=== PATIENT | female | born 1950 | race Caucasian/White ===

== ENCOUNTER 2021-03-08 20:29 | Inpatient (IN) | payer MEDICARE, MEDICAID, SELFPAY ==
[2021-03-08 20:33] VITALS: BP 162/110; PULSE 105; RESP 18; TEMP 37.8; O2SAT 94; BMI 31.3
--- NOTE | 2021-03-08 20:54 | CT_ITS ---
STUDY: CT BRAIN WITHOUT CONTRAST REASON FOR EXAM: Female, 70 years old. Confusion RADIATION DOSAGE (If Supplied By Facility): CTDIvol = ( 37.35 ) mGy, DLP = ( 1275.30 ) mGycm TECHNIQUE: Transaxial CT imaging of the brain was performed without administration of intravenous contrast material. Individualized dose optimization techniques were used for this CT. COMPARISON: No relevant priors. FINDINGS: Normal soft tissue structures. Normal calvarium. Normal size ventricles and extra-axial spaces for the patient''s age. Normal white matter tracts of the cerebral hemispheres. Prominent perivascular spaces at the basal ganglia. Normal thalami. Normal brainstem. Normal cerebellum. There is no intracranial hemorrhage. There are no findings of an acute ischemic infarction. Mucosal thickening in the left maxillary sinus. CT/Brain/Head without Contrast IMPRESSION: No acute intracranial pathology of the brain. Electronically Signed: Zen Sifuentes DO at 22:14 EST ,
--- NOTE | 2021-03-08 20:54 | EKG12_ITS ---
Test Reason : ALT LOC Blood Pressure : / mmHG Vent. Rate : 124 BPM Atrial Rate : 100 BPM P-R Int : 000 ms QRS Dur : 062 ms QT Int : 330 ms P-R-T Axes : 064 011 104 degrees QTc Int : 474 ms Atrial fibrillation Nonspecific ST and T wave abnormality Abnormal ECG Confirmed by RUSSELL BO, ARAVIND ([id number]), order editor ALLEY JAIN ([id number]) on 03/09/2021 8:41:57 AM Referred By: EDILSON Confirmed By:ARAVIND WELLS MD
--- NOTE | 2021-03-08 20:57 | EX.ED.DYSGE1 ---
HPI History of Present Illness Chief Complaint: Alt LOC Informant: family Narrative Narrative: History is extremely limited. I do not have any records yet from assisted in terms of medical history and medications. Patient is nonverbal. We were able to talk to her sister on the phone. We found out that the patient used to live at home. However she had aides [id number] and family helping her. She went into the hospital in early January. I do not know exactly what happened then. She was then transferred to a nursing facility up in [place]. She has been there ever since. She evidently has not been feeling well for about a week. I do not have any more specifics on that either. She started to get more lethargic and confused at the end of last week. On Monday she evidently went to [facility]. She was found to have a UTI and antibiotics were started although we do not know what these were. She was also found to be Covid positive. Because she is Covid positive she was now transferred down to a long-term nursing facility in this area. We are trying to get further details. Her sister states that she has been complaining of not feeling well this week. However she was talking with her a little bit on or Monday although she was confused. Monday she would talk but not much and would only say a few words. She did recognize her sister. But she was certainly confused. Today she is not really talking. Further details above or beyond this are unable to be obtained at this time. [facility] Medical History (Updated 03/08/21 @ 23:[address] Fermín Winslwo MD) Anemia Idiopathic neuropathy Insomnia Kidney disease Venous (peripheral) insufficiency Home Medications apixaban [Eliquis] 2.5 mg PO BID 03/08/21 [History Last Taken 03/08/21] ascorbic acid (vitamin C) 500 mg PO DAILY 03/08/21 [History Last Taken 03/08/21] cephalexin [Keflex] 500 mg PO BID 03/08/21 [History Last Taken 03/08/21] cholecalciferol (vitamin D3) 125 mcg PO DAILY 03/08/21 [History Last Taken 03/08/21] gabapentin 300 mg PO BID 03/08/21 [History Last Taken 03/08/21] linaclotide [Linzess] 290 mcg PO DAILY 03/08/21 [History Last Taken 03/08/21] morphine 15 mg PO BID 03/08/21 [History Last Taken 03/08/21] morphine 30 mg PO Q12H 03/08/21 [History Last Taken Unknown] multivitamin 1 tab PO DAILY 03/08/21 [History Last Taken 03/08/21] polyethylene glycol 3350 17 g PO DAILY 03/08/21 [History Last Taken 03/08/21] tamsulosin 0.4 mg PO QHS 03/08/21 [History Last Taken Unknown] trazodone 150 mg PO QODAY 03/08/21 [History Last Taken Unknown] venlafaxine 150 mg PO DAILY 03/08/21 [History Last Taken 03/08/21] zinc 50 mg PO DAILY 03/08/21 [History Last Taken 03/08/21] Allergy/AdvReac Type Severity Reaction Status Date / Time codeine Allergy PT UNABLE Verified 03/08/21 20:39 TO RESPOND-NEEDS F/U hydrocodone Allergy PT UNABLE Verified 03/08/21 20:39 TO RESPOND-NEEDS F/U Family History (Updated 03/08/21 @ 23:[address] Khris Merchant MD) Other Breast cancer Diabetes Surgical History H/O: hysterectomy History of nephrectomy Social History Smoking Status: Never smoker ROS ROS ED ROS Narrative See history of present illness. Really unable to get any details. Review of Systems ROS Unobtainable: due to mental status Constitutional Constitutional ED: Reports fever(s) EXAM Physical Exam Const Vital Signs: 03/08/21 20:33 03/08/21 21:06 03/08/21 21:19 Temperature 100.1 F H Temperature Source Axillary Pulse Rate 105 H 104 H Respiratory Rate 18 Respiratory Effort Normal Respiratory Pattern Normal Blood Pressure 162/110 H Blood Pressure Mean 127 Pulse Ox 94 100 Oxygen Delivery Method Nasal Cannula Nasal Cannula Oxygen Flow Rate (L/min) 4 3 03/08/21 21:31 03/08/21 22:14 Temperature 100.8 F H 100.2 F H Temperature Source Axillary Axillary Pulse Rate 103 H 99 Respiratory Rate 18 18 Respiratory Effort Respiratory Pattern Blood Pressure 92/67 117/100 H Blood Pressure Mean 75 105 Pulse Ox 95 97 Oxygen Delivery Method Nasal Cannula Nasal Cannula Oxygen Flow Rate (L/min) 3 3 Positive well nourished, well developed and obese General Appearance ED: well developed; Negative for cyanotic, diaphoretic or pallor Nutritional Appearance: obese HEENT Reports dry mucous membranes Negative for trauma Mouth ED: Yes dry mucous membranes Mouth: dry mucous membranes Eyes PERRL and EOMs intact bilaterally Eyes Narrative: There is no deviation in either side. She will turn and look at you when you say her name. Neck no JVD Chest Wall inspection of chest normal Resp normal respiratory effort and clear to auscultation bilaterally Resp Narrative: Despite a history of Covid, her lungs actually sound relatively clear. Auscultation: Negative for rales, rhonchi or wheezes Cardio regular rhythm Rate: tachycardic GI normal to inspection, nondistended, normoactive bowel sounds, non-tender and non-distended GI Narrative: Abdomen is soft and nontender. There does appear to be a lower vertical pelvic scar. There also appears to be a scar that could be consistent with a prior PEG tube in the left upper quadrant. Palpation: soft Extremity Extremity Narrative: Extremities show chronic stasis changes and drying of the skin on both sides. But they do not look acutely infected. Neuro Neuro Narrative: Patient is awake and alert. She will follow simple commands such as squeezing a hand. When her sister talks to her she will answer what and say yes. But she does not carry on a conversation. She does appear to recognize her sister's voice. I do not find a focal deficit. She also has diffuse tremors but her sister states that this is not uncommon for her especially when she is sick. Sister also states that when she gets an infection she will oftentimes get very confused and lethargic. Sensorium / Orientation: alert Skin General Skin Exam: Negative for jaundice or pallor MDM MDM MDM Narrative Medical decision making narrative: Patient's white count is toward the lower end. She does have Covid which could contribute to this. Hemoglobin is low at 9.5 but I found this was unchanged from just a few days ago. Urine is strongly positive for UTI with cloudy urine leukocyte esterase and greater than 100 white cells. Troponin is negative. Her electrolytes show significant elevation of creatinine at 5.35. I did find results online that showed she had a creatinine of about 2.3 on the of this month. This does show an acute kidney injury. Lactate is normal. Patient is given IV fluids here. I think she is clinically as well as laboratory leonardo dehydrated. Her blood pressure was about 100 systolic a couple times but it is better with just some fluids. I was able to find records from her prior assisted but not the current one. We do have a report that she may be on Eliquis but we have no indication as to why. We are at a loss for information at this time. We are trying to get information from [facility] regarding her recent visit and from her current assisted but we find out she is only been at that assisted for about 6 hours before she was sent in. With her decreased alertness, urine infection, Covid, acute kidney injury she will be admitted. Lab Data Attestation: I reviewed the patient's lab results. Labs: Laboratory Results - last 24 hr 03/08/21 03/08/21 03/08/21 20:00 20:10 20:40 WBC 5.3 RBC 3.49 L Hgb 9.5 L Hct 32.1 L MCV 92.0 MCH 27.2 MCHC 29.6 L RDW Std Deviation 60.0 H RDW Coeff of Issac 18.0 H Plt Count 272 MPV 9.5 Immature Gran % (Auto) 0.800 Neut % (Auto) 70.5 H Lymph % (Auto) 18.9 L Nicholas % (Auto) 9.0 Eos % (Auto) 0.6 Baso % (Auto) 0.2 Absolute Neuts (auto) 3.8 Absolute Lymphs (auto) 1.01 Nucleated RBC % 0 Sodium Potassium Chloride Carbon Dioxide Anion Gap BUN Creatinine Estim Creat Clear Calc Est GFR (MDRD) Af Amer Est GFR (MDRD) Non-Af BUN/Creatinine Ratio Glucose Lactic Acid Calcium Total Bilirubin AST ALT Alkaline Phosphatase Troponin I High Sens Total Protein Albumin Globulin Albumin/Globulin Ratio Urine Color Justa Urine Clarity Cloudy Urine pH 5.0 Ur Specific [place] 1.020 Urine Protein 100 H Urine Glucose (UA) Normal Urine Ketones 15 H Urine Occult Blood 250 H Urine Nitrite Negative Urine Bilirubin Negative Urine Urobilinogen 1 H Ur Leukocyte Esterase 500 H Urine RBC > 100 SEEN Urine WBC >100 SEEN Ur Squamous Epith Cells 0 SEEN Urine Bacteria 0 SEEN Urine Mucus 0 SEEN Ur Random Sodium 39 Urine Creatinine 175.00 03/08/21 03/08/21 20:40 20:40 WBC RBC Hgb Hct MCV MCH MCHC RDW Std Deviation RDW Coeff of Issac Plt Count MPV Immature Gran % (Auto) Neut % (Auto) Lymph % (Auto) Nicholas % (Auto) Eos % (Auto) Baso % (Auto) Absolute Neuts (auto) Absolute Lymphs (auto) Nucleated RBC % Sodium 148 H Potassium 4.6 Chloride 117 H Carbon Dioxide 23.0 Anion Gap 8 BUN 59 H Creatinine 5.35 H Estim Creat Clear Calc 10.23 Est GFR (MDRD) Af Amer 10 L Est GFR (MDRD) Non-Af 8 L BUN/Creatinine Ratio 11.0 Glucose 97 Lactic Acid 1.1 Calcium 8.8 Total Bilirubin 0.50 AST 42 H ALT 24 Alkaline Phosphatase 96 Troponin I High Sens 13 Total Protein 8.0 Albumin 2.2 L Globulin 5.8 H Albumin/Globulin Ratio 0.4 L Urine Color Urine Clarity Urine pH Ur Specific [place] Urine Protein Urine Glucose (UA) Urine Ketones Urine Occult Blood Urine Nitrite Urine Bilirubin Urine Urobilinogen Ur Leukocyte Esterase Urine RBC Urine WBC Ur Squamous Epith Cells Urine Bacteria Urine Mucus Ur Random Sodium Urine Creatinine Radiography Diagnostic Testing: Clinical Impression(s) from Imaging Studies Brain CT 03/08/21 20:54 IMPRESSION: No acute intracranial pathology of the brain. Electronically Signed: Zen Sifuentes DO at 22:14 EST Reading Location ID and State: [facility] / [place] Tel [phone], Service support , Chest X-Ray 03/08/21 21:33 IMPRESSION: Bilateral basilar patchy infiltrates. Electronically Signed: Zen Sifuentes DO at 21:45 EST , EKG Initial EKG: Comments: EKG done for generalized illness in the elderly. EKG read by me is very hard to interpret. This is likely modified due to the patient's tremor. The rhythm does look regular but there is a lot of baseline variation. Rate is approximately 124 but in the room she is normally closer to 100. Nonspecific changes no sign of acute ST elevation. Difficult to interpret and no prior. Discharge Plan Dx/Rx/DC Orders Clinical Impression: UTI (urinary tract infection), Sepsis, Pneumonia due to COVID-19 virus, Acute kidney injury, Dehydration Disposition Disposition: Acute Care Hospital [facility] Discharge Date/Time: 03/08/21 23:40
--- NOTE | 2021-03-08 20:58 | CM.ED ---
Social Work Consult: Limited history Referral source: Self referral This social welfare administrator assisting medical team in establishing medical history for patient. Telephone call to patient sister, Keila Mercado ([phone]). Keila able to provide a baseline for Dr. Winslow. Patient currently residing at [facility] as of yesterday. Prior to [facility] patient was at a hospital in [place] over the weekend and prior to that at [facility] due to debility after UTI per Keila. Patient was found to have COVID-19 when at hospital and sent to [facility] due to positive status. Prior to hospital and nursing homes stays (early January 2021) patient was living at home alone with aides in the morning and evening and sisters to check in on patient throughout the day per Keila. Keila request to be updated on patient status. This social welfare administrator thanked Keila for information. Medical team updated on all above. Chaka URIARTE, JOSHUA
[2021-03-08 21:06] LABS: Absolute Lymphocyte Count 1.01 X10^3/uL (0.83-4.51); Absolute Neutrophil Count 3.8 X10^3/uL (2.0-7.7); Basophil# 0.01 X10^3/uL; Basophil% 0.2 % (0-1); Eosinophil# 0.03 X10^3/uL; Eosinophils% 0.6 % (0-5); Hematocrit 32.1 % (37-47); Hemoglobin 9.5 g/dL (12.0-15.0); Lymphocyte # 1.01 X10^3/ul (0.83-4.51); Lymphocyte % 18.9 % (19-41); Mean Corp Hgb Conc 29.6 g/dL (32-36); Mean Corpuscular Hgb 27.2 pg (27.0-32.0); Mean Platelet Vol. 9.5 fl (6.2-12.0); Monocyte# 0.48 X10^3/uL; NRBC Flagged by Analyzer 0 % (0-5); Neutrophil # 3.76 X10^3/uL (2.7-7.7); Neutrophil % 70.5 % (47-70); Platelet Count 272 K/mm3 (150-450); Red Blood Count 3.49 M/mm3 (4.2-5.4); White Blood Count 5.3 K/mm3 (4.4-11.0)
[2021-03-08] MEDS: Acetaminophen 650 MG Suppository RC (21:12)
[2021-03-08 21:19] VITALS: PULSE 104; O2SAT 100
[2021-03-08 21:20] LABS: Bacteria 0 SEEN /hpf (None Seen); Mucous, Urine 0 SEEN /hpf (<or=2+); Squamous Epithelial Cells - UA 0 SEEN /hpf (5-10)
[2021-03-08 21:23] LABS: ALB/GLOB Ratio 0.4 RATIO (0.9-2.4); AST(SGOT) 42 U/L (15-37); Alanine Aminotransfer ALT/SGPT 24 U/L (13-56); Albumin, Serum 2.2 g/dL (3.2-5.0); Alkaline Phosphatase 96 U/L (45-117); Anion Gap 8 (5-15); BUN 59 mg/dL (7-18); Calcium,Total 8.8 mg/dL (8.5-10.1); Chloride 117 mmol/L (98-107); Creatinine, Serum 5.35 mg/dL (0.55-1.02); EST Glomerular Filtration Rate 8 mL/min (>60); Est Glom Filt Rate - Afr Amer 10 mL/min (>60); Estimated Creatinine Clearance 10.23 ml/min; Globulin 5.8 g/dL (2.2-4.2); Glucose 97 mg/dL (74-106); Lactic Acid 1.1 mmol/L (0.4-1.9); Potassium 4.6 mmol/L (3.5-5.1); Sodium Level 148 mmol/L (136-145); Troponin-I HS 13 pg/mL (3.0-54.0)
[2021-03-08 21:29] LABS: Color, Urine Amber (Yellow); Glucose, Dipstick Normal (Normal); Ketone-Dipstick 15 mg/dl (Negative); Leukocyte Esterase-Dipstick 500 /ul (Negative); Nitrite-Dipstick Negative (Negative); Occult Blood-Urine 250 /ul (Negative); Protein-Dipstick 100 mg/dl (Negative); Urine Bilirubin Dipstick Negative (Negative); Urine Clarity Cloudy (Clear); Urine Urobilinogen 1 mg/dl (Normal)
[2021-03-08 21:31] VITALS: BP 92/67; PULSE 103; RESP 18; TEMP 38.2; O2SAT 95
--- NOTE | 2021-03-08 21:33 | RAD_ITS ---
STUDY: X-RAY CHEST REASON FOR EXAM: Female, 70 years old. Covid TECHNIQUE: Frontal view COMPARISON: None. FINDINGS: The lungs are not fully expanded. Bilateral basilar patchy infiltrates. Normal size heart. Normal mediastinum and katey. Normal visualized pulmonary arteries. Normal visualized aortic arch and descending thoracic aorta. Normal visualized thoracic spine. Normal visualized ribs, clavicles, and shoulders. There is no demonstrated abnormality of the visualized soft tissue structures of the upper abdomen. RAD/Chest 1 View (Portable) IMPRESSION: Bilateral basilar patchy infiltrates. Electronically Signed: Zen Sifuentes DO at 21:45 EST Reading Location ID and State: [facility] / [place] Tel [phone], Service support ,
[2021-03-08 21:43] LABS: Red Blood Cells-Urine > 100 SEEN /hpf (0-5)
[2021-03-08 21:44] LABS: White Blood Cells >100 SEEN /hpf (0-5)
[2021-03-08] MEDS: 0.9% Normal Saline 1,000 ML 999 ML IV (22:11)
[2021-03-08 22:14] VITALS: BP 117/100; PULSE 99; RESP 18; TEMP 37.9; O2SAT 97
--- NOTE | 2021-03-08 22:57 | PCM.HP.STD ---
HPI - General General Date of Admission: 03/08/21 HPI Narrative History was taken from patient sister, Keila Mercado via phone. Patient is confused and unable to provide history. MICHAEL MARROQUIN, is a 70 F with a significant history of a partial nephrectomy; previous alcoholism who presents from the assisted with 6 days of progressively worsening malaise. Associated with her symptoms is confusion. Reportedly patient is not talking at this time. Although within same week patient was conversational. Patient's sister visited patient within the past 3 days and noticed that patient could talk but her speech had declined. Of note on September 03, 2021 patient went to [facility] and was diagnosed with UTI and COVID. She was placed on antibiotics. Patient currently lives at the assisted. Recently she was started on supplemental oxygenation. Patient is new at the assisted that she is at and the assisted is unable to provide further history of patient. Of note patient was previously at [facility] and was discharged to a assisted. [facility] Medical History Anemia Idiopathic neuropathy Insomnia Kidney disease Venous (peripheral) insufficiency Home Medications apixaban [Eliquis] 2.5 mg PO BID 03/08/21 [History Last Taken 03/08/21] ascorbic acid (vitamin C) 500 mg PO DAILY 03/08/21 [History Last Taken 03/08/21] cephalexin [Keflex] 500 mg PO BID 03/08/21 [History Last Taken 03/08/21] cholecalciferol (vitamin D3) 125 mcg PO DAILY 03/08/21 [History Last Taken 03/08/21] gabapentin 300 mg PO BID 03/08/21 [History Last Taken 03/08/21] linaclotide [Linzess] 290 mcg PO DAILY 03/08/21 [History Last Taken 03/08/21] morphine 15 mg PO BID 03/08/21 [History Last Taken 03/08/21] morphine 30 mg PO Q12H 03/08/21 [History Last Taken Unknown] multivitamin 1 tab PO DAILY 03/08/21 [History Last Taken 03/08/21] polyethylene glycol 3350 17 g PO DAILY 03/08/21 [History Last Taken 03/08/21] tamsulosin 0.4 mg PO QHS 03/08/21 [History Last Taken Unknown] trazodone 150 mg PO QODAY 03/08/21 [History Last Taken Unknown] venlafaxine 150 mg PO DAILY 03/08/21 [History Last Taken 03/08/21] zinc 50 mg PO DAILY 03/08/21 [History Last Taken 03/08/21] Allergy/AdvReac Type Severity Reaction Status Date / Time codeine Allergy PT UNABLE Verified 03/08/21 20:39 TO RESPOND-NEEDS F/U hydrocodone Allergy PT UNABLE Verified 03/08/21 20:39 TO RESPOND-NEEDS F/U Family History Other Breast cancer Diabetes Surgical History H/O: hysterectomy History of nephrectomy Social History Smoking Status: Never smoker ROS Review of Systems ROS Unobtainable: other Details: Pertinent positives and pertinent negatives that could be provided by patient's sister is as noted in HPI. All other systems were reviewed and either patient's sister did not know or they were negative. Vital Signs Vital Signs Vital Signs: 03/08/21 20:33 03/08/21 21:06 03/08/21 21:19 Temperature 100.1 F H Temperature Source Axillary Pulse Rate 105 H 104 H Respiratory Rate 18 Respiratory Effort Normal Respiratory Pattern Normal Blood Pressure 162/110 H Blood Pressure Mean 127 Pulse Ox 94 100 Oxygen Delivery Method Nasal Cannula Nasal Cannula Oxygen Flow Rate (L/min) 4 3 03/08/21 21:31 03/08/21 22:14 Temperature 100.8 F H 100.2 F H Temperature Source Axillary Axillary Pulse Rate 103 H 99 Respiratory Rate 18 18 Respiratory Effort Respiratory Pattern Blood Pressure 92/67 117/100 H Blood Pressure Mean 75 105 Pulse Ox 95 97 Oxygen Delivery Method Nasal Cannula Nasal Cannula Oxygen Flow Rate (L/min) 3 3 Weight Weight: 96.3 kg Body Mass Index (BMI) 31.3 Physical Exam Narrative Physical exam: General: Appears sick. Head: Normocephalic, atraumatic, no tenderness Eyes: Vision is grossly normal. ENT, no trauma, no rhinorrhea Neck: Nontender, Does not follow commands to move neck. CVS: Regular rate and rhythm. S1-S2 present. No murmur, gallop or rub. Respiratory : Patient with moist cough but unable to expectorate secretions. Rhonchi. Abdomen: Soft, nontender, nondistended, normal bowel sounds, no masses : Deferred Back: Nontender, no CVA tenderness, no midline spinal tenderness, deformities, step-offs Extremities: Nontender full range of motion, no trauma Skin: Dark pigmentations on bilateral legs. Neuro: Hypoalert. Not answering questions. Psychiatry: Flat affect. Results Lab / Micro Data Result Diagrams: 03/08/21 20:40 03/08/21 20:40 Labs: Laboratory Results - last 24 hr 03/08/21 20:00: Urine Color Justa, Urine Clarity Cloudy, Urine pH 5.0, Ur Specific [place] 1.020, Urine Protein 100 H, Urine Glucose (UA) Normal, Urine Ketones 15 H, Urine Occult Blood 250 H, Urine Nitrite Negative, Urine Bilirubin Negative, Urine Urobilinogen 1 H, Ur Leukocyte Esterase 500 H, Urine RBC > 100 SEEN, Urine WBC >100 SEEN, Ur Squamous Epith Cells 0 SEEN, Urine Bacteria 0 SEEN, Urine Mucus 0 SEEN 03/08/21 20:40: WBC 5.3, RBC 3.49 L, Hgb 9.5 L, Hct 32.1 L, MCV 92.0, MCH 27.2, MCHC 29.6 L, RDW Std Deviation 60.0 H, RDW Coeff of Issac 18.0 H, Plt Count 272, MPV 9.5, Immature Gran % (Auto) 0.800, Neut % (Auto) 70.5 H, Lymph % (Auto) 18.9 L, Early % (Auto) 9.0, Eos % (Auto) 0.6, Baso % (Auto) 0.2, Absolute Neuts (auto) 3.8, Absolute Lymphs (auto) 1.01, Nucleated RBC % 0 03/08/21 20:40: Sodium 148 H, Potassium 4.6, Chloride 117 H, Carbon Dioxide 23.0, Anion Gap 8, BUN 59 H, Creatinine 5.35 H, Estim Creat Clear Calc 10.23, Est GFR (MDRD) Af Amer 10 L, Est GFR (MDRD) Non-Af 8 L, BUN/Creatinine Ratio 11.0, Glucose 97, Calcium 8.8, Total Bilirubin 0.50, AST 42 H, ALT 24, Alkaline Phosphatase 96, Troponin I High Sens 13, Total Protein 8.0, Albumin 2.2 L, Globulin 5.8 H, Albumin/Globulin Ratio 0.4 L 03/08/21 20:40: Lactic Acid 1.1 Micro: Microbiology 03/08/21 21:14 Nasal Secretion SARS-CoV-2 Antigen (Rapid) - Final SARS-CoV-2 (COVID 19) Radiology Impression Brain CT 03/08/21 20:54 IMPRESSION: No acute intracranial pathology of the brain. Electronically Signed: Zen Sifuentes DO at 22:14 EST , Chest X-Ray 03/08/21 21:33 IMPRESSION: Bilateral basilar patchy infiltrates. Electronically Signed: Zen Sifuentes DO at 21:45 EST , Assessment & Plan Assessment/Plan (1) Sepsis: QUALIFIERS: Acute renal failure type: unspecified Sepsis acute organ dysfunction status: with acute organ dysfunction Sepsis type: sepsis due to unspecified organism Severe sepsis acute organ dysfunction type: acute renal failure Severe sepsis shock status: without septic shock Qualified Code(s): A41.9 - Sepsis, unspecified organism; R65.20 - Severe sepsis without septic shock; N17.9 - Acute kidney failure, unspecified (2) UTI (urinary tract infection): QUALIFIERS: Hematuria presence: without hematuria Urinary tract infection type: acute cystitis Qualified Code(s): N30.00 - Acute cystitis without hematuria (3) Pneumonia due to COVID-19 virus: PLAN: Acute hypoxemic respiratory failure secondary to SARS- COV 2 Whilst in patient's room supplemental oxygen was removed and patient oxygen saturation was 87 to 89% on room air. Review of outside records shows that patient tested positive for COVID-19 on 03/06/2021. Rapid Covid antigen at the hospital was positive. Reportedly patient has been on supplemental oxygen at the assisted. Patient was on supplemental oxygen at the emergency department. Supplemental oxygen continued. Actual chest x-ray image was independently visualized and interpreted. Chest x-ray showed hypoventilation and bilateral infiltrates. I agree radiologist interpretation. Of note patient has a GFR of 10. Unable to obtain CTA chest due to her poor kidney function. Whiles on the floor nurses reported that upon suctioning patient had thick frothy pink-like sputum. Will get chest CT without contrast. Lasix ordered. Respiratory to attempt NT suctioning. Will start patient on Decadron. Patient is not a candidate of remdesivir because of poor creatinine clearance. Also she is not a candidate of baricitinib because of poor creatinine clearance. Review of labs showed sodium of 148; chloride of 117; BUN of 59; creatinine of 5.35. Received normal saline bolus at the emergency department. Plan was to continue with IV hydration but with possible pulmonary edema Lasix was given. We will get a chest CTA and BNP. We will consult nephrology and pulmonary medicine. Sepsis secondary to acute UTI/acute infectious encephalopathy Patient meets SIRS criteria with a temperature of more than 100.4 Fahrenheit; and heart rate of more than 90. Source of infection: UTI Urinalysis reviewed showed elevated protein; ketones; urine occult blood; urine urobilirubin; urine leukocyte Estrace elevated; urine RBC elevated; urine WBC elevated but with no bacteria seen and with no squamous cells. Started on ceftriaxone at the emergency department. qSOFA score is 1 (encephalopathy). Since patient was already on Keflex outpatient will escalate antibiotics to Zosyn Elevated creatinine Creatinine on presentation was 5.35. With a frothy pink sputum as above IV Lasix ordered. Trend CMP. Nephrology consult. DVT prophylaxis: Heparin drip started prophylactic for PE in the setting of inability to get a chest CTA. Charges/Coding Visit Charges Inpatient E&M: 88185 Init Hosp L3
[2021-03-08] MEDS: Ceftriaxone 1 GM/50 ML BAG IV (22:59)
[2021-03-08 23:00] VITALS: BP 92/55; PULSE 78; RESP 20; TEMP 37.2; O2SAT 96
[2021-03-08 23:28] LABS: Urine Sodium 39 mmol/L (Not Establ.)
[2021-03-08 23:39] VITALS: BP 151/88
[2021-03-09] VITALS (21 sets, daily range): BP systolic 113–168; BP diastolic 48–148; PULSE 38–98; RESP 6–28; TEMP 35.1–37.1; O2SAT 92–100; BMI 29.9
--- NOTE | 2021-03-09 00:38 | CT_ITS ---
STUDY: CT CHEST WITHOUT CONTRAST REASON FOR EXAM: Female, 70 years old. Hypoxemia RADIATION DOSAGE (If Supplied By Facility): CTDIvol = ( 19.57 ) mGy, DLP = ( 606.41 ) mGycm TECHNIQUE: Transaxial imaging was performed without the administration of intravenous contrast material. Individualized dose optimization techniques were used for this CT. COMPARISON: CXR from 03/08/2021. FINDINGS: There is a small to moderate-sized right pleural effusion. There is bilateral lower lobe consolidative changes with air bronchograms. There are patchy bilateral lung base opacities. Normal heart and pericardium. Normal mediastinum. Normal hilar regions. Normal unenhanced pulmonary arteries. Normal aorta arch and descending thoracic aorta. Negative osseous structures. There is no demonstrated abnormality of the visualized upper abdomen. CT/Chest without Contrast IMPRESSION: Small to moderate size layering right pleural effusion with bilateral lower lobe lung probable atelectasis. Additional mild patchy lung base opacities concerning for underlying infectious inflammatory process and possible viral pneumonia. Electronically Signed: Venancio Helms MD at 2:19 EST ,
[2021-03-09] MEDS: Furosemide 40 MG/4 ML Vial IV (01:00)
[2021-03-09] MEDS: 0.9% Saline Lock 10 ML Syringe IV ×6 (01:00→20:55)
[2021-03-09] MEDS: dexAMETHasone 10 MG/ML Vial 6 MG IV ×2 (01:01→10:01)
[2021-03-09 01:21] LABS: BNP,B-Type NATRIURETIC PEPTIDE 24.1 pg/mL (0-100)
[2021-03-09] MEDS: Heparin Injection (Vial) 5,000 UNIT/ML VIAL 7500 UNIT IV (02:05)
[2021-03-09] MEDS: HEPARIN/D5w 25,000 UNITS 25,000 UNITS/250 ML IV.SOLN. 14 UNITS IV (02:10)
[2021-03-09] MEDS: Piperacil/Tazobactam 3.375 GM/50 ML ML IV ×3 (03:00→22:56)
[2021-03-09 04:36] LABS: Absolute Lymphocyte Count 0.61 X10^3/uL (0.83-4.51); Absolute Neutrophil Count 5.7 X10^3/uL (2.0-7.7); Basophil# 0.01 X10^3/uL; Basophil% 0.1 % (0-1); Eosinophil# 0.02 X10^3/uL; Eosinophils% 0.3 % (0-5); Hematocrit 30.2 % (37-47); Hemoglobin 8.8 g/dL (12.0-15.0); Lymphocyte # 0.61 X10^3/ul (0.83-4.51); Lymphocyte % 9.1 % (19-41); Mean Corp Hgb Conc 29.1 g/dL (32-36); Mean Corpuscular Volume 92.6 fL (81-99); Mean Platelet Vol. 9.1 fl (6.2-12.0); Monocyte# 0.38 X10^3/uL; Monocyte% 5.6 % (0-10); NRBC Flagged by Analyzer 0 % (0-5); Neutrophil # 5.65 X10^3/uL (2.7-7.7); Platelet Count 251 K/mm3 (150-450); RBC Distribution Width CV 17.9 % (11.6-14.6); RBC Distribution Width SD 60.6 fl (35.1-43.9); Red Blood Count 3.26 M/mm3 (4.2-5.4); White Blood Count 6.7 K/mm3 (4.4-11.0)
[2021-03-09] MEDS: Linezolid 600 MG 600 MG/300 ML BAG 200 MG IV ×3 (04:52→22:56)
[2021-03-09] MEDS: 0.9% Normal Saline 1,000 ML 75 ML IV ×2 (04:52→17:46)
[2021-03-09 04:54] LABS: ALB/GLOB Ratio 0.4 RATIO (0.9-2.4); AST(SGOT) 43 U/L (15-37); Alanine Aminotransfer ALT/SGPT 23 U/L (13-56); Alkaline Phosphatase 91 U/L (45-117); Anion Gap 5 (5-15); BUN 56 mg/dL (7-18); Calcium,Total 8.7 mg/dL (8.5-10.1); Chloride 121 mmol/L (98-107); Creatinine, Serum 5.07 mg/dL (0.55-1.02); EST Glomerular Filtration Rate 9 mL/min (>60); Est Glom Filt Rate - Afr Amer 11 mL/min (>60); Estimated Creatinine Clearance 10.79 ml/min; Globulin 5.6 g/dL (2.2-4.2); Glucose 108 mg/dL (74-106); Protein, Total 7.6 g/dL (6.4-8.2); Sodium Level 148 mmol/L (136-145)
--- NOTE | 2021-03-09 08:48 | US_ITS ---
STUDY: RENAL ULTRASOUND - COMPLETE REASON FOR EXAM: Female, 70 years old. Acute renal failure TECHNIQUE: Ultrasound evaluation of the kidneys was performed with real-time and static mg-scale imaging. COMPARISON: None. FINDINGS: RIGHT KIDNEY: Normal location of the right kidney, which is normal in size. The right kidney measures 10.2 x 5.5 cm. There is a normal cortex of the right kidney. The renal cortex measures 1.3 cm. There is no right renal mass or cyst. There is a 15 mm right renal calculi. Small calculi visualized. There is no right hydronephrosis. DISTAL RIGHT URETER: There is non-visualization of the distal right ureter. There is no demonstrated right ureterovesical junction calculus. There is no demonstrated right ureteral jet. LEFT KIDNEY: Normal location of the left kidney, which is normal in size. The left kidney measures 10.2 x 5 cm. There is a normal cortex of the left kidney. The renal cortex measures 1.5 cm. There is no left renal mass or cyst. There are no left renal calculi. There is no left hydronephrosis. DISTAL LEFT URETER: There is non-visualization of the distal left ureter. There is no demonstrated left ureterovesical junction calculus. There is no demonstrated left ureteral jet. AORTA: There is obscuration of the abdominal aorta by overlying bowel gas I.V.C.: The IVC is obscured. BLADDER: There is a normal wall thickness of the distended urinary bladder. There is no demonstrated mass within the urinary bladder. There are no demonstrated bladder calculi. US/Kidney and Bladder IMPRESSION: Non obstructive right renal parenchymal stones. Electronically Signed: Arthur Muniz MD at 17:32 EST ,
--- NOTE | 2021-03-09 08:50 | CON.PCM.CC_ITS ---
Assessment & Plan Assessment/Plan (1) Pneumonia due to COVID-19 virus: (2) UTI (urinary tract infection): QUALIFIERS: Hematuria presence: without hematuria Urinary tract i nfection type: acute cystitis Qualified Code(s): N30.00 - Acute cystitis without hematuria (3) Acute kidney injury: PLAN: RECOMMENDATIONS: 1. Consider asking sister to visit consider asking sister to visit for insight/history 2. Obtain renal ultrasound for possible hydronephrosis 3. Obtain renal consultation possible dialysis. May need urology pending ultrasound results 4. Wean supplemental oxygen as tolerated 5. No baricitinib or Remdesivir given renal status 6. Agree with empiric MDRO antibiotics given recent hospitalization 7. Discontinue IV fluids given COVID-19 8. Continue Decadron to complete 10 days (03/17/2021) 9. Consider transfer to higher level of care such as PCU. Defer to hospitalist. IMPRESSIONS: 1. Acute on chronic kidney disease stage IV with previous stent Patient's urinalysis shows significant pyuria without bacteria and worsening creatinine. Patient may have a postobstructive component. Will obt ain an ultrasound for evaluation. Uremia may be adding to myoclonic jerking and patient does have hyperkalemia. Will consult nephrology. Hold on diuretics until postobstructive etiology can be addressed. Do agree with broadening antibiotics given patient's recent hospitalization/antibiotics and foreign body. 2. Acute hypoxic respiratory insufficiency secondary to COVID-19 Patient is requiring supplemental oxygen to maintain saturations. Patient has tested positive for COVID-19. Would recommend holding IV fluids as this has been shown to increased risk for hypoxic respiratory failure. Patient could receive boluses if nephrology feels this is appropriate. Would recommend lactated Ringer's as patient does have significant hypernatremia and hyperchloremia. Patient is on Decadron. Patient is not a candidate for Remdesivir or baricitinib because of poor creatinine clearance. Vaccination status is unclear at this time 3. Myoclonic jerking/encephalopathy Patient reportedly has a history of tics but currently is having significant myoclonic activity. Patient does track with her eyes, so seizure is less likely. It is unclear if patient is unable to process information or express responses secondary to myoclonic jerking 4. Morbid obesity/poor history/repeated hospitalizations/anemia Complicates care, management, recovery and prognosis. Recommend n.p.o. status until neurologi status can be improved.c HPI Consult Data Date of Consult: 03/09/21 HPI Narrative HPI Narrative: MICHAEL MARROQUIN is a 70 F, with reported past medical history below, who presents to [facility] 03/08/2021 from a snf. Patient is currently nonverbal and was nonverbal in the ER. The majority of the history is obtained from the medical record. Patient reportedly had gone to the hospital in early January and then was transferred to a nursing facility. Patient reportedly had not been doing well for a week and became more lethargic and confused. Patient reportedly seen at [facility] late last week and placed on antibiotics for UTI. Patient sister reported that she felt that she was more confused. In the ER, patient was febrile to 100.8 ?F, tachycardic at 105 bpm and hypertensive at 162/110. Patient was tolerating nasal cannula for appropriate saturations. Laboratory work-up showed a hemoglobin of 9.5, white blood cell count of 5.3, high leukocyte esterase and white blood cells seen in the UA. Laboratory work-up showed a sodium of 148, chloride of 117, potassium of 4.6 and a creatinine of 5.35. Lactate was within normal limits. Chest x-ray showed bibasilar patchy infiltrates and an EKG showed sinus tachycardia, but was of poor quality. Patient did come back positive for COVID-19. Patient reportedly had a creatinine of 2.3 on 24 of February. Patient was given IV fluids. ER is reporting patient was only in a snf for about 6 hours prior to being sent to the ER for evaluation. On my evaluation on the floor, patient is having significant tics. Patient does make eye contact and tracks appropriately, but is not following commands. Unable to obtain any additional information at this time. Patient has never been a [facility], so old information is not available for review. [facility] documentation suggest patient recently had the placement of a ureteral stent. [facility] Medical History Anemia Idiopathic neuropathy Insomnia Kidney disease Venous (peripheral) insufficiency Home Medications apixaban [Eliquis] 2.5 mg PO BID 03/08/21 [History Last Taken 03/08/21] ascorbic acid (vitamin C) 500 mg PO DAILY 03/08/21 [History Last Taken 03/08/21] cephalexin [Keflex] 500 mg PO BID 03/08/21 [History Last Taken 03/08/21] cholecalciferol (vitamin D3) 125 mcg PO DAILY 03/08/21 [History Last Taken 03/08/21] gabapentin 300 mg PO BID 03/08/21 [History Last Taken 03/08/21] linaclotide [Linzess] 290 mcg PO DAILY 03/08/21 [History Last Taken 03/08/21] morphine 15 mg PO BID 03/08/21 [History Last Taken 03/08/21] morphine 30 mg PO Q12H 03/08/21 [History Last Taken Unknown] multivitamin 1 tab PO DAILY 03/08/21 [History Last Taken 03/08/21] polyethylene glycol 3350 17 g PO DAILY 03/08/21 [History Last Taken 03/08/21] tamsulosin 0.4 mg PO QHS 03/08/21 [History Last Taken Unknown] trazodone 150 mg PO QODAY 03/08/21 [History Last Taken Unknown] venlafaxine 150 mg PO DAILY 03/08/21 [History Last Taken 03/08/21] zinc 50 mg PO DAILY 03/08/21 [History Last Taken 03/08/21] Allergy/AdvReac Type Severity Reaction Status Date / Time codeine Allergy PT UNABLE Verified 03/08/21 20:39 TO RESPOND-NEEDS F/U hydrocodone Allergy PT UNABLE Verified 03/08/21 20:39 TO RESPOND-NEEDS F/U Family History Other Breast cancer Diabetes Surgical History H/O: hysterectomy History of nephrectomy Social History Smoking Status: Never smoker ROS Review of Systems ROS Unobtainable: due to encephalopathy and other Details: Significant tics/myoclonic jerking Physical Exam Const alert Constitutional Narrative: Tracks appropriately. Significant tics/myoclonic jerking. Saturating well on room air. No attempts to vocalize or follow co mmands Nutritional Appearance: morbidly obese HEENT normocephalic and moist oral mucous membranes HEENT Narrative: Mallampati 4 Eyes PERRL, EOMs intact bilaterally, conjunctivae normal and no scleral icterus Neck full ROM Chest inspection of chest normal Chest: symmetrical chest wall rise; Negative for crepitus Resp normal respiratory effort Effort and Inspection: Negative for actively coughing Auscultation: Negative for rales, rhonchi or wheezes Cardio regular rate, regular rhythm, S1 normal heart sound, S2 normal heart sound, no murmurs, no rub and no gallops Cardio Narrative: Somewhat difficult to hear secondary to myoclonic jerking GI normal to inspection, nondistended, normoactive bowel sounds Extremity General Extremity: edema bilateral (2+) lower extremity; Negative for clubbing Skin no rashes or lesions noted Neuro Neuro Narrative: Nonvocal. Significant myoclonic jerking noted, but tracks appropriately. No attempts to speak Psych Mood & Affect: flat affect Lab / Micro Data Result Diagrams: 03/09/21 04:29 03/09/21 04:29 Labs: Laboratory Results - last 24 hr 03/08/21 20:00: Urine Color Justa, Urine Clarity Cloudy, Urine pH 5.0, Ur Specific [place] 1.020, Urine Protein 100 H, Urine Glucose (UA) Normal, Urine Ketones 15 H, Urine Occult Blood 250 H, Urine Nitrite Negative, Urine Bilirubin Negative, Urine Urobilinogen 1 H, Ur Leukocyte Esterase 500 H, Urine RBC > 100 SEEN, Urine WBC >100 SEEN, Ur Squamous Epith Cells 0 SEEN, Urine Bacteria 0 SEEN, Urine Mucus 0 SEEN 03/08/21 20:10: Ur Random Sodium 39, Urine Creatinine 175.00 03/08/21 20:40: WBC 5.3, RBC 3.49 L, Hgb 9.5 L, Hct 32.1 L, MCV 92.0, MCH 27.2, MCHC 29.6 L, RDW Std Deviation 60.0 H, RDW Coeff of Issac 18.0 H, Plt Count 272, MPV 9.5, Immature Gran % (Auto) 0.800, Neut % (Auto) 70.5 H, Lymph % (Auto) 18.9 L, [place] % (Auto) 9.0, Eos % (Auto) 0.6, Baso % (Auto) 0.2, Absolute Neuts (auto) 3.8, Absolute Lymphs (auto) 1.01, Nucleated RBC % 0 03/08/21 20:40: Sodium 148 H, Potassium 4.6, Chloride 117 H, Carbon Dioxide 23.0, Anion Gap 8, BUN 59 H, Creatinine 5.35 H, Estim Creat Clear Calc 10.23, Est GFR (MDRD) Af Amer 10 L, Est GFR (MDRD) Non-Af 8 L, BUN/Creatinine Ratio 11. 0, Glucose 97, Calcium 8.8, Total Bilirubin 0.50, AST 42 H, ALT 24, Alkaline Phosphatase 96, Troponin I High Sens 13, Total Protein 8.0, Albumin 2.2 L, Globulin 5.8 H, Albumin/Globulin Ratio 0.4 L 03/08/21 20:40: Lactic Acid 1.1 03/09/21 04:29: WBC 6.7, RBC 3.26 L, Hgb 8.8 L, Hct 30.2 L, MCV 92.6, MCH 27.0, MCHC 29.1 L, RDW Std Deviation 60.6 H, RDW Coeff of Issac 17.9 H, Plt Count 251, MPV 9.1, Immature Gran % (Auto) 0.900, Neut % (Auto) 84.0 H, Lymph % (Auto) 9.1 L, [place] % (Auto) 5.6, Eos % (Auto) 0.3, Baso % (Auto) 0.1, Absolute Neuts (auto) 5.7, Absolute Lymphs (auto) 0.61 L, Nucleated RBC % 0 03/09/21 04:29: Sodium 148 H, Potassium 5.0, Chloride 121 H, Carbon Dioxide 22.0, Anion Gap 5, BUN 56 H, Creatinine 5.07 H, Estim Creat Clear Calc 10.79, Est GFR (MDRD) Af Amer 11 L, Est GFR (MDRD) Non-Af 9 L, BUN/Creatinine Ratio 11.0, Glucose 108 H, Calcium 8.7, Total Bilirubin 0.40, AST 43 H, ALT 23, Alkaline Phosphatase 91, Total Protein 7.6, Albumin 2.0 L, Globulin 5.6 H, Albumin/Globulin Ratio 0.4 L 03/09/21 20:40: B-Natriuretic Peptide 24.1 03/09/21 20:40: APTT 37.0 H Micro: Microbiology 03/08/21 21:14 Nasal Secretion SARS-CoV-2 Antigen (Rapid) - Final SARS-CoV-2 (COVID 19) Radiology Impression Brain CT 03/08/21 20:54 IMPRESSION: No acute intracranial pathology of the brain. Electronically Signed: Zen Sifuentes DO at 22:14 EST , Chest X-Ray 03/08/21 21:33 IMPRESSION: Bilateral basilar patchy infiltrates. Electronically Signed: Zen Sifuentes DO at 21:45 EST , Chest CT 03/09/21 00:38 IMPRESSION: Small to moderate size layering right pleural effusion with bilateral lower lobe lung probable atelectasis. Additional mild patchy lung base opacities concerning for underlying infectious inflammatory process and possible viral pneumonia. Electronically Signed: Venancio Helms MD at 2:19 EST , Charges/Coding Visit Charges Inpatient E&M: 42512 Init Hosp L3
[2021-03-09 09:06] LABS: Partial Thromboplast Time > 250.0 Seconds (24.1-36.2)
--- NOTE | 2021-03-09 10:16 | PCS.PANDOC ---
PANDEMIC DOCUMENTATION INITIATED: Date: 09/21/2020 Time: 190
--- NOTE | 2021-03-09 10:38 | CASEMGMT ---
Social Work Note SW reviewed chart. Pt is listed as being from [facility]. ANGELES placed a call to Radha at [facility]. Radha states pt was at their sister facility [facility] and then pt tested positive for COVID so pt had to be transferred to [facility]. Radha states it depends on when pt is medically ready for discharge because she is not sure if pt will return to [facility] or return to [facility]. SW to continue to follow. Symone Larsen [employer] HELPER, [employer]PERATOR
--- NOTE | 2021-03-09 11:10 | PCM.PN.HOSP ---
Subjective Subjective diffuse myoclonus entire hospitalization. Objective Data Objective Data Vital Signs: Vital Signs Temp Pulse Resp BP Pulse Ox 37.1 C 92 18 136/77 H 96 03/09/21 10:12 03/09/21 10:12 03/09/21 10:12 03/09/21 10:12 03/09/21 10:19 Oxygen Flow Rate (L/min) 3 Oxygen Delivery Method Nasal Cannula Weight: 92.1 kg Body Mass Index (BMI) 29.9 Intake & Output: Intake and Output for Last 24 Hours 03/07/21 03/08/21 03/09/21 23:59 23:59 23:59 Intake Total 1550 / 1550 447.53 / 447.53 Output Total 150 / 150 Balance 1550 / 1550 297.53 / 297.53 Lab / Micro Data Result Diagrams: 03/09/21 04:29 03/09/21 04:29 Labs: Laboratory Results - last 24 hr 03/08/21 20:00: Urine Color Justa, Urine Clarity Cloudy, Urine pH 5.0, Ur Specific [place] 1.020, Urine Protein 100 H, Urine Glucose (UA) Normal, Urine Ketones 15 H, Urine Occult Blood 250 H, Urine Nitrite Negative, Urine Bilirubin Negative, Urine Urobilinogen 1 H, Ur Leukocyte Esterase 500 H, Urine RBC > 100 SEEN, Urine WBC >100 SEEN, Ur Squamous Epith Cells 0 SEEN, Urine Bacteria 0 SEEN, Urine Mucus 0 SEEN 03/08/21 20:10: Ur Random Sodium 39, Urine Creatinine 175.00 03/08/21 20:40: WBC 5.3, RBC 3.49 L, Hgb 9.5 L, Hct 32.1 L, MCV 92.0, MCH 27.2, MCHC 29.6 L, RDW Std Deviation 60.0 H, RDW Coeff of Issac 18.0 H, Plt Count 272, MPV 9.5, Immature Gran % (Auto) 0.800, Neut % (Auto) 70.5 H, Lymph % (Auto) 18.9 L, [place] % (Auto) 9.0, Eos % (Auto) 0.6, Baso % (Auto) 0.2, Absolute Neuts (auto) 3.8, Absolute Lymphs (auto) 1.01, Nucleated RBC % 0 03/08/21 20:40: Sodium 148 H, Potassium 4.6, Chloride 117 H, Carbon Dioxide 23.0, Anion Gap 8, BUN 59 H, Creatinine 5.35 H, Estim Creat Clear Calc 10.23, Est GFR (MDRD) Af Amer 10 L, Est GFR (MDRD) Non-Af 8 L, BUN/Creatinine Ratio 11.0, Glucose 97, Calcium 8.8, Total Bilirubin 0.50, AST 42 H, ALT 24, Alkaline Phosphatase 96, Troponin I High Sens 13, Total Protein 8.0, Albumin 2.2 L, Globulin 5.8 H, Albumin/Globulin Ratio 0.4 L 03/08/21 20:40: Lactic Acid 1.1 03/09/21 04:29: WBC 6.7, RBC 3.26 L, Hgb 8.8 L, Hct 30.2 L, MCV 92.6, MCH 27.0, MCHC 29.1 L, RDW Std Deviation 60.6 H, RDW Coeff of Issac 17.9 H, Plt Count 251, MPV 9.1, Immature Gran % (Auto) 0.900, Neut % (Auto) 84.0 H, Lymph % (Auto) 9.1 L, [place] % (Auto) 5.6, Eos % (Auto) 0.3, Baso % (Auto) 0.1, Absolute Neuts (auto) 5.7, Absolute Lymphs (auto) 0.61 L, Nucleated RBC % 0 03/09/21 04:29: Sodium 148 H, Potassium 5.0, Chloride 121 H, Carbon Dioxide 22.0, Anion Gap 5, BUN 56 H, Creatinine 5.07 H, Estim Creat Clear Calc 10.79, Est GFR (MDRD) Af Amer 11 L, Est GFR (MDRD) Non-Af 9 L, BUN/Creatinine Ratio 11.0, Glucose 108 H, Calcium 8.7, Total Bilirubin 0.40, AST 43 H, ALT 23, Alkaline Phosphatase 91, Total Protein 7.6, Albumin 2.0 L, Globulin 5.6 H, Albumin/Globulin Ratio 0.4 L 03/09/21 08:15: APTT > 250.0 H* 03/09/21 20:40: B-Natriuretic Peptide 24.1 03/09/21 20:40: APTT 37.0 H Micro: Microbiology 03/08/21 21:14 Nasal Secretion SARS-CoV-2 Antigen (Rapid) - Final SARS-CoV-2 (COVID 19) Radiography Diagnostic Testing: Radiology Impression Brain CT 03/08/21 20:54 IMPRESSION: No acute intracranial pathology of the brain. Electronically Signed: Zen Sifuentes DO at 22:14 EST , Chest X-Ray 03/08/21 21:33 IMPRESSION: Bilateral basilar patchy infiltrates. Electronically Signed: Zen Sifuentes DO at 21:45 EST , Chest CT 03/09/21 00:38 IMPRESSION: Small to moderate size layering right pleural effusion with bilateral lower lobe lung probable atelectasis. Additional mild patchy lung base opacities concerning for underlying infectious inflammatory process and possible viral pneumonia. Electronically Signed: Venancio Helms MD at 2:19 EST , Physical Exam Narrative able to mutter her first name. does not follow commands. Const Constitutional Narrative: awake, eyes open. obese. HEENT HEENT Narrative: MMM Eyes Eyes Narrative: cataracts. no icterus. pupils non-dilated Resp normal respiratory effort and no retractions Resp Narrative: coarse breath sounds bilaterally. Cardio regular rate, regular rhythm, S1 normal heart sound and S2 normal heart sound GI normal to inspection, nondistended, normoactive bowel sounds, soft to palpation, non-tender and non-distended Extremity Extremity Narrative: scales over LE, sloughed off in parts. Assessment & Plan Assessment/Plan (1) Acute kidney injury: (2) Pneumonia due to COVID-19 virus: (3) UTI (urinary tract infection): QUALIFIERS: Urinary tract infection type: acute cystitis Hematuria presence: without hematuria Qualified Code(s): N30.00 - Acute cystitis without hematuria (4) Sepsis: QUALIFIERS: Sepsis type: sepsis due to unspecified organism Sepsis acute organ dysfunction status: with acute organ dysfunction Severe sepsis acute organ dysfunction type: acute renal failure Acute renal failure type: unspecified Severe sepsis shock status: without septic shock Qualified Code(s): A41.9 - Sepsis, unspecified organism; R65.20 - Severe sepsis without septic shock; N17.9 - Acute kidney failure, unspecified (5) Myoclonus: PLAN: 1. WHITLEY Cr 3.4 from 03/05, now 5.07 Post obstructive v ATN nephrology on consult avoid nephrotoxic agents check renal US 2. COVID 19 + on the unclear when Sx began on dexamethasone no remdesivir given WHITLEY 3. Sepsis POA qSOFA score of 2 2/2 UTI, COVID 19 +/- bacterial pneumonia f/u Cx on pip/tazo and linezolid 4. UTI recently had a Proteus UTI on Pip/tazo 5. myoclonus may be metabolic or due to medications (i.e., gabapentin) not being adequately cleared given WHITLEY check EEG to r/o atypical Szr avoid potentiating medication 6. Recent ureteral stone nephrostomy tube placed at [facility] 7. VTE prophylaxis: change to SQ heparin 8. On apixaban at baseline: was not on prior to hospitalization at [facility] no EKG at [facility], no available documentation to suggest PE/DVT, afib DC hep gtt EKG here has a lot of artifact and cannot determine if afib (I suspect NSR as I see p-waves in V1) Reviewed records from [facility] Charges/Coding Visit Charges Inpatient E&M: 23130 Subs Hosp L3
--- NOTE | 2021-03-09 11:43 | PCM.CONS.R ---
Assessment & Plan Assessment/Plan (1) Acute kidney injury: PLAN: Baseline creatinine prior to last admit was 1.8. At the time of discharge her creatinine was around 2.2-2.4. creatinine was slowly increasing at the senior living. Clinically she has significant myoclonus. Urine output is present but on the lower side. She was on fairly high dose of gabapentin, trazodone prior to admission. It is possible the myoclonic jerks could be related to gabapentin accumulation. Since creatinine is better, hold dialysis for today. All her psychotropic medications are on hold. No acute indications for dialysis today. We may consider dialysis if she does not improve in the next 1 or 2 days. Renal ultrasound is pending. CT chest with bilateral infiltrates She had a urine culture positive on 06 March that showed Proteus which is sensitive to most of the antibiotics except nitrofurantoin Discussed with Dr Jay and Dr Muir (2) Myoclonus: (3) Chronic kidney disease, stage 3b: HPI Consult Data Date of Consult: 03/09/21 HPI Narrative HPI Narrative: MCIHAEL MARROQUIN, is a 70 F who presents to the hospital with shortness of breath, confusion, worsening renal failure. Nephrology consulted for acute renal failure. She was recently admitted at [facility]. Reviewed records from over there. She has known history of CKD stage IIIb with baseline creatinine around 1.8 in April 2020. She was admitted with a creatinine of 4.1. Imaging study showed right-sided hydronephrosis with associated stone. She had a stent prior to that, ended up having a nephrostomy tube on the right side. Discharge creatinine was around 2.3 or so. She was also treated for a UTI. She was sent to [facility]. Admitted here with a creatinine of 5.6. Slightly better today. Patient is not very communicative. Has twitching movements. She does turn her head when I call out her name. Non verbal for the most part. I tried calling her sister and it went to voicemail. [facility] Medical History Anemia Idiopathic neuropathy Insomnia Kidney disease Venous (peripheral) insufficiency Home Medications apixaban [Eliquis] 2.5 mg PO BID 03/08/21 [History Last Taken 03/08/21] ascorbic acid (vitamin C) 500 mg PO DAILY 03/08/21 [History Last Taken 03/08/21] cephalexin [Keflex] 500 mg PO BID 03/08/21 [History Last Taken 03/08/21] cholecalciferol (vitamin D3) 125 mcg PO DAILY 03/08/21 [History Last Taken 03/08/21] gabapentin 300 mg PO BID 03/08/21 [History Last Taken 03/08/21] linaclotide [Linzess] 290 mcg PO DAILY 03/08/21 [History Last Taken 03/08/21] morphine 15 mg PO BID 03/08/21 [History Last Taken 03/08/21] morphine 30 mg PO Q12H 03/08/21 [History Last Taken Unknown] multivitamin 1 tab PO DAILY 03/08/21 [History Last Taken 03/08/21] polyethylene glycol 3350 17 g PO DAILY 03/08/21 [History Last Taken 03/08/21] tamsulosin 0.4 mg PO QHS 03/08/21 [History Last Taken Unknown] trazodone 150 mg PO QODAY 03/08/21 [History Last Taken Unknown] venlafaxine 150 mg PO DAILY 03/08/21 [History Last Taken 03/08/21] zinc 50 mg PO DAILY 03/08/21 [History Last Taken 03/08/21] Allergy/AdvReac Type Severity Reaction Status Date / Time codeine Allergy PT UNABLE Verified 03/08/21 20:39 TO RESPOND-NEEDS F/U hydrocodone Allergy PT UNABLE Verified 03/08/21 20:39 TO RESPOND-NEEDS F/U Family History Other Breast cancer Diabetes Surgical History H/O: hysterectomy History of nephrectomy Social History Smoking Status: Never smoker ROS Review of Systems ROS Unobtainable: due to encephalopathy Physical Exam Narrative twitching no obvious distress no pallor no icterus no JVD s1s2 no murmurs lungs clear abdomen soft no organomegaly no edema no cyanosis heller + Lab / Micro Data Result Diagrams: 03/09/21 04:29 03/09/21 04:29 Labs: Laboratory Results - last 24 hr 03/08/21 20:00: Urine Color Justa, Urine Clarity Cloudy, Urine pH 5.0, Ur Specific [place] 1.020, Urine Protein 100 H, Urine Glucose (UA) Normal, Urine Ketones 15 H, Urine Occult Blood 250 H, Urine Nitrite Negative, Urine Bilirubin Negative, Urine Urobilinogen 1 H, Ur Leukocyte Esterase 500 H, Urine RBC > 100 SEEN, Urine WBC >100 SEEN, Ur Squamous Epith Cells 0 SEEN, Urine Bacteria 0 SEEN, Urine Mucus 0 SEEN 03/08/21 20:10: Ur Random Sodium 39, Urine Creatinine 175.00 03/08/21 20:40: WBC 5.3, RBC 3.49 L, Hgb 9.5 L, Hct 32.1 L, MCV 92.0, MCH 27.2, MCHC 29.6 L, RDW Std Deviation 60.0 H, RDW Coeff of Issac 18.0 H, Plt Count 272, MPV 9.5, Immature Gran % (Auto) 0.800, Neut % (Auto) 70.5 H, Lymph % (Auto) 18.9 L, [place] % (Auto) 9.0, Eos % (Auto) 0.6, Baso % (Auto) 0.2, Absolute Neuts (auto) 3.8, Absolute Lymphs (auto) 1.01, Nucleated RBC % 0 03/08/21 20:40: Sodium 148 H, Potassium 4.6, Chloride 117 H, Carbon Dioxide 23.0, Anion Gap 8, BUN 59 H, Creatinine 5.35 H, Estim Creat Clear Calc 10.23, Est GFR (MDRD) Af Amer 10 L, Est GFR (MDRD) Non-Af 8 L, BUN/Creatinine Ratio 11.0, Glucose 97, Calcium 8.8, Total Bilirubin 0.50, AST 42 H, ALT 24, Alkaline Phosphatase 96, Troponin I High Sens 13, Total Protein 8.0, Albumin 2.2 L, Globulin 5.8 H, Albumin/Globulin Ratio 0.4 L 03/08/21 20:40: Lactic Acid 1.1 03/09/21 04:29: WBC 6.7, RBC 3.26 L, Hgb 8.8 L, Hct 30.2 L, MCV 92.6, MCH 27.0, MCHC 29.1 L, RDW Std Deviation 60.6 H, RDW Coeff of Issac 17.9 H, Plt Count 251, MPV 9.1, Immature Gran % (Auto) 0.900, Neut % (Auto) 84.0 H, Lymph % (Auto) 9.1 L, [place] % (Auto) 5.6, Eos % (Auto) 0.3, Baso % (Auto) 0.1, Absolute Neuts (auto) 5.7, Absolute Lymphs (auto) 0.61 L, Nucleated RBC % 0 03/09/21 04:29: Sodium 148 H, Potassium 5.0, Chloride 121 H, Carbon Dioxide 22.0, Anion Gap 5, BUN 56 H, Creatinine 5.07 H, Estim Creat Clear Calc 10.79, Est GFR (MDRD) Af Amer 11 L, Est GFR (MDRD) Non-Af 9 L, BUN/Creatinine Ratio 11.0, Glucose 108 H, Calcium 8.7, Total Bilirubin 0.40, AST 43 H, ALT 23, Alkaline Phosphatase 91, Total Protein 7.6, Albumin 2.0 L, Globulin 5.6 H, Albumin/Globulin Ratio 0.4 L 03/09/21 08:15: APTT > 250.0 H* 03/09/21 20:40: B-Natriuretic Peptide 24.1 03/09/21 20:40: APTT 37.0 H Micro: Microbiology 03/08/21 21:14 Nasal Secretion SARS-CoV-2 Antigen (Rapid) - Final SARS-CoV-2 (COVID 19) Radiology Impression Brain CT 03/08/21 20:54 IMPRESSION: No acute intracranial pathology of the brain. Electronically Signed: Zen Sifuenets DO at 22:14 EST , Chest X-Ray 03/08/21 21:33 IMPRESSION: Bilateral basilar patchy infiltrates. Electronically Signed: Zen Sifuentes DO at 21:45 EST , Chest CT 03/09/21 00:38 IMPRESSION: Small to moderate size layering right pleural effusion with bilateral lower lobe lung probable atelectasis. Additional mild patchy lung base opacities concerning for underlying infectious inflammatory process and possible viral pneumonia. Electronically Signed: Venancio Helms MD at 2:19 EST ,
[2021-03-09 11:44] LABS: M R Staph aureus DNA By PCR Negative (Negative); Probe Check PASS; Specimen Processing Control PASS
[2021-03-09] MEDS: LORazepam 2 MG/ML Syringe 1 MG IV (13:26)
--- NOTE | 2021-03-09 13:34 | TELEMED_ITS ---
[facility] Telemed has confirmed receipt of a request for visit. This document confirms receipt of the order initiating the consult. To find the results of the consultation, please view the patient's reports for the scanned Telemed Consult.
--- NOTE | 2021-03-09 13:52 | NURSING ---
report called to [facility]
--- NOTE | 2021-03-09 14:34 | NURSING ---
pt transfered to u
--- NOTE | 2021-03-09 14:43 | NURSING ---
Patient respirations 6 per min w/ 30 second apneic periods. Doctor notified, Ordered STAT biPAP. Patient noted to have tremoring again on an off. Patient drops on monitor to 47BPM at times. 100% SPO2 on 3LNC
[2021-03-09] MEDS: Flumazenil 0.5 MG/5 ML Vial 0.2 MG IV (15:01)
--- NOTE | 2021-03-09 15:12 | CPS ---
Pt now alert after RN gave reversal med, BIPAP was turned off and removed from room.
[2021-03-09 16:50] LABS: Allen Test Positive; Base Excess -4 mmol/L (-2 to +2); Bicarbonate 22.9 mmol/L (22-26); Blood Gas Specimen Type ART; O2 Delivery Device Cannula; PO2 61 mmHG (75-100); SITE R Radial; SO2 87 % (95-99); Total Carbon Dioxide 25 mmol/L; pH 7.26 (7.35-7.45)
--- NOTE | 2021-03-09 18:50 | NURSING ---
Received ativan this am on MS3-respirations dropped to 6/min with 30 second periods of apnea. Patient was still alert to self. She responded with opening eyes or saying 'hello'. Antidote for ativan and bipap used STAT. Respirations increased to 13/min. bipap removed patient spo2 100% on 2 LNC. Patient began to tremor again; Pierre notfied, ABG ordered and Completed, Doctor Pierre alerted of this. Paged for hospitalist when patient stopped responding to this nurse and Delbert Garsia RN; advised hospitalist to come see patient. Patient ordered Keppra IVF and STAT tele-med consultation.
[2021-03-09] MEDS: levETIRAcetam IV 1,000 MG/100 ML BAG 400 MG IV (19:03)
[2021-03-09] MEDS: Etomidate 20 MG/10 ML Vial IV (19:35)
[2021-03-09] MEDS: Succinylcholine Chloride 200 MG/10 ML Vial 100 MG IV (19:36)
--- NOTE | 2021-03-09 19:44 | PCM.PN.BLA ---
Progress Note Called to see patient who received Ativan was doing EEG. Patient dropped her respiration to 6/min and had period of apnea. She received flumazenil. Patient's overall vitals continue to be improved. She however started having persistent tremors. EEG done earlier in the day and was still not read On-call hospitalist notified around [id number] HRS. Patient is not responsive. No tracking of the eyes seen. Generalized tremors noticed. ABGs reviewed does show respiratory acidosis. Noted patient on continuous pulse ox was saturating well. Blood pressure was 150/100 Telemetry neurology consulted, arrangements to move patient to ICU started. IV Keppra 1 g start given Patient was moved to ICU and intubated
[2021-03-09] MEDS: Propofol 10MG/Ml 1,000 MG/100 ML Bottle 5.5 MG CONT INF (19:50)
--- NOTE | 2021-03-09 19:50 | PCM.PN.BLA ---
Progress Note Intubation Indication: [place] Coma Score of 3; and status epilepticus. Per patient's sister patient wants everything done. The patient was placed in the appropriate sniffing position. Preoxygenated sedation via BiPAP was provided for a minimum of 3 minutes. The patient had continuous cardiac as well as pulse oximetry monitoring during the procedure. Procedure sedation was provided by the administration of etomidate. GlideScope laryngoscopy was then performed using a number 4 blade, which revealed a grade 1 view. A mm endotracheal tube was visualized advancing between the cords to the level of 23 cm at the lip. The stylette was then removed and discarded. Tube placement was confirmed by fogging in the tube along with equal and bilateral breath sounds. Colorimetric change was visualized on the CO2 meter. The cuff was then inflated and the tube secured using a commercially available device. A good pulse oximetry waveform was seen on the monitor throughout the procedure. A portable chest x-ray has been ordered to confirm appropriate placement. The patient tolerated the procedure well. Procedures Hospitalists Procedures: [id number] Insert Emergency Airway
--- NOTE | 2021-03-09 20:10 | RAD_ITS ---
STUDY: X-RAY CHEST REASON FOR EXAM: Female, 70 years old. CHEST PAIN ET TUBE TECHNIQUE: XR Chest 1 View COMPARISON: Yesterday FINDINGS: There is no demonstrated pleural abnormality. There is bilateral infiltrate. There is an NGT and ET tube in place. There is no pneumothorax. Normal size heart. Normal mediastinum and katey. Normal visualized pulmonary arteries. There is atherosclerotic calcification of the aortic arch with tortuosity. There are diffuse degenerative changes of the visualized thoracic spine. There is degenerative osteoarthritis of the bilateral shoulders. There is no demonstrated abnormality of the visualized soft tissue structures of the upper abdomen. RAD/Chest 1 View (Portable) IMPRESSION: There is a feeding tube/ nasogastric tube noted. The tip is not seen because it extends off the film. There is an endotracheal tube in place. The tip is 39 mm above the duane. This is in good position. Electronically Signed: Arthur Muniz MD at 20:45 EST ,
--- NOTE | 2021-03-09 20:10 | RAD_ITS ---
EXAM: XR ABDOMEN, 1 VIEW CLINICAL INDICATION: OG TUBE PLACEMENT TECHNIQUE: Frontal supine view of the abdomen/pelvis. This report was created using [employer] report generation technology. COMPARISON: None. FINDINGS: LOWER THORAX: No acute pathology. GASTROINTESTINAL TRACT: Unremarkable. Non-obstructive. No bowel or stomach distention. ORGANS: Double-J right ureteral stent. There are right renal calculi. No organomegaly. BONES/JOINTS: Degenerative findings of the hips. SOFT TISSUES: No acute pathology. TUBES, LINES AND DEVICES: There is a feeding tube/ nasogastric tube noted. The tip is in the region of the stomach. RAD/Abdomen Single View (Portable) IMPRESSION: 1. There is a feeding tube/ nasogastric tube noted. The tip is in the region of the stomach. 2. Double-J right ureteral stent. There are right renal calculi. Electronically Signed: Arthur Muniz MD at 20:46 EST ,
[2021-03-09 21:54] LABS: CPK Total, Creatine Kinase 619 U/L (26-192); Triglycerides 250 mg/dL
[2021-03-09 22:05] LABS: Base Excess -6 mmol/L (-2 to +2); Bicarbonate 17.1 mmol/L (22-26); Blood Gas Specimen Type ART; FI02 35; Mode AC; O2 Delivery Device Adult Vent; PEEP 5; PO2 90 mmHG (75-100); RR 16; SITE R Radial; SO2 98 % (95-99); Total Carbon Dioxide 18 mmol/L; Vt 450; pCO2 22.6 mmHg (35-45); pH 7.49 (7.35-7.45)
[2021-03-09] MEDS: Chlorhexidine 15 ML PO (22:55)
[2021-03-09] MEDS: Heparin Injection (Vial) 5,000 UNIT/ML VIAL 5000 UNIT SC (23:00)
[2021-03-09] MEDS: Propofol 10MG/Ml 1,000 MG/100 ML Bottle 19.3 MG CONT INF (23:26)
--- NOTE | 2021-03-09 23:29 | NURSING ---
03/09/21 @ 1923- Patient arrived from PCU unresponsive with Bipap on @ 30% to CVICU 202 with x3 RN's, x2 RT, and x2 MD's at bedside. 1927- Dr. Merchant at bedside preparing to intubate. James Bruno, RN prepared medications and this RN then administered per Dr. Merchant verbal order @ 1934 20mg of Etomidate via IVP followed by 100mg of Succinylcholine via IVP @ 1935. 1937 ETT 7.5mm and 23 @ lip is in place with positive color change of easy cap and bilateral breath sounds. 5- 16F OG placed and secured. Stat XR ordered and notifed for verification of support lines. Will continue to monitor. -JOSE E Carrillo
--- NOTE | 2021-03-09 23:55 | NURSING ---
03/09/21 @ 2330- Bare hugger blanket applied due to hypothermic temperatures. Patient current temperature at time of placement was 95.0 degrees Fahrenheit. Current Bare hugger temperature set on high at 43 degrees Celsius. -JOSE E Carrillo
[2021-03-10] VITALS (30 sets, daily range): BP systolic 112–153; BP diastolic 63–98; PULSE 39–68; RESP 12–19; TEMP 34.9–37.6; O2SAT 92–100
--- NOTE | 2021-03-10 00:32 | NURSING ---
03/09/21 @ 1999- EKG admit strip completed by Jaems Bruno RN. -Lorena RN
--- NOTE | 2021-03-10 03:58 | NURSING ---
03/10/21 @ 4882 Current core temperature is 98.5. Kandis chanogger in place but turned down to low 32 degrees Celcius. -Lorena RN
[2021-03-10 04:29] LABS: Absolute Lymphocyte Count 0.68 X10^3/uL (0.83-4.51); Absolute Neutrophil Count 3.8 X10^3/uL (2.0-7.7); Hematocrit 27.6 % (37-47); Hemoglobin 8.4 g/dL (12.0-15.0); Lymphocyte # 0.68 X10^3/ul (0.83-4.51); Lymphocyte % 13.2 % (19-41); Mean Corp Hgb Conc 30.4 g/dL (32-36); Mean Corpuscular Hgb 27.1 pg (27.0-32.0); Mean Platelet Vol. 9.8 fl (6.2-12.0); Monocyte# 0.45 X10^3/uL; Monocyte% 8.7 % (0-10); NRBC Flagged by Analyzer 0.6 % (0-5); Neutrophil # 3.82 X10^3/uL (2.7-7.7); Neutrophil % 73.8 % (47-70); Platelet Count 291 K/mm3 (150-450); RBC Distribution Width CV 17.9 % (11.6-14.6); RBC Distribution Width SD 58.2 fl (35.1-43.9); White Blood Count 5.2 K/mm3 (4.4-11.0)
[2021-03-10] MEDS: Propofol 10MG/Ml 1,000 MG/100 ML Bottle 19.3 MG CONT INF (04:29)
[2021-03-10 04:45] LABS: ALB/GLOB Ratio 0.3 RATIO (0.9-2.4); AST(SGOT) 32 U/L (15-37); Alanine Aminotransfer ALT/SGPT 22 U/L (13-56); Albumin, Serum 1.8 g/dL (3.2-5.0); Alkaline Phosphatase 73 U/L (45-117); Anion Gap 13 (5-15); BUN 63 mg/dL (7-18); BUN/Creat Ratio 12.6 RATIO (10-20); Calcium,Total 8.5 mg/dL (8.5-10.1); Chloride 117 mmol/L (98-107); EST Glomerular Filtration Rate 9 mL/min (>60); Est Glom Filt Rate - Afr Amer 11 mL/min (>60); Estimated Creatinine Clearance 10.94 ml/min; Globulin 5.2 g/dL (2.2-4.2); Glucose 120 mg/dL (74-106); Potassium 3.7 mmol/L (3.5-5.1); Sodium Level 147 mmol/L (136-145)
--- NOTE | 2021-03-10 05:20 | NURSING ---
03/10/21 @ 0536 Current core temperature is 97.9. Kandis hugger in place but turned up to low 38 degrees Celcius because patients temperature is falling. -Lorena RN
[2021-03-10] MEDS: TITRATION PARAMETER CHANGE 1 EACH IV (05:21)
--- NOTE | 2021-03-10 06:44 | PN.CC_ITS ---
Assessment & Plan Assessment/Plan (1) Pneumonia due to COVID-19 virus: (2) UTI (urinary tract infection): QUALIFIERS: Urinary tract infection type: acute cystitis Hematuri a presence: without hematuria Qualified Code(s): N30.00 - Acute cystitis without hematuria (3) Acute kidney injury: PLAN: RECOMMENDATIONS: 1. Await transfer to tertiary neuro intensive care unit 2. Await nephrology recommendations 3. Spontaneous breathing and awakening trials per protocol 4. Monitor mentation for possible extubation 5. No baricitinib or Remdesivir given renal status 6. Agree with empiric MDRO antibiotics given recent hospitalization. Cultures pending 7. Discontinue IV fluids given COVID-19 8. Continue Decadron to complete 10 days (03/17/2021) IMPRESSIONS: 1. Acute on chronic kidney disease stage IV with previous stent Patient's urinalysis shows significant pyuria without bacteria and worsening creatinine. Patient may have a postobstructive component. Await ultrasound for evaluation. Uremia may be adding to myoclonic jerking and patient does have hyperkalemia. Do agree with broadening antibiotics given patient's recent hospitalization/antibiotics and foreign body. Cultures are currently pending. Await nephrology recommendations 2. Acute hypoxic respiratory failure secondary to airway protection in the setting of COVID-19 Patient is requiring supplemental oxygen to maintain saturations. Patient has tested positive for COVID-19. IV fluids will be discontinued. Patient could receive boluses if nephrology feels this is appropriate. Would recommend lactated Ringer's as patient does have significant hypernatremia and hyperchloremia. Patient is on Decadron. Patient is not a candidate for Remdesivir or baricitinib because of poor creatinine clearance. Vaccination status is unclear at this time. Patient with minimal oxygen requirements at this time, but given mental status, plan on continuing airway protection. Postintubation checks x-rays show appropriate placement. 3. Myoclonic jerking/encephalopathy Patient reportedly has a history of tics but currently is having significant myoclonic activity. Patient does track with her eyes, so seizure is less likely. It is unclear if patient is unable to process information or express responses secondary to myoclonic jerking 4. Morbid obesity/poor history/repeated hospitalizations/anemia Complicates care, management, recovery and prognosis. Recommend n.p.o. status until neurologi status can be improved.c TIME: 32 minutes critical care time spent addressing patient's acute kidney injury, respiratory failure, COVID-19, myoclonic jerking, review of all data and collaboration with care team. Subjective Subjective Patient transferred to the intensive care unit overnight secondary to concerns for airway protection. Myoclonus is much improved following initiation of propofol. Patient reportedly has been accepted by the [facility], but is still awaiting a bed. Patient continues to have marginal urine output. EEG reportedly showed significant artifact. Patient was significant secretions after intubation. These were sent for culture. Objective Data Objective Data Vital Signs: Vital Signs Temp Pulse Resp BP Pulse Ox 36.6 C 47 L 12 121/69 H 94 03/10/21 06:00 03/10/21 06:00 03/10/21 06:00 03/10/21 06:00 03/10/21 06:00 Oxygen Flow Rate (L/min) 2 Oxygen Delivery Method Mechanical Ventilator Weight: 91.4 kg Body Mass Index (BMI) 29.9 Intake & Output: Intake and Output for Last 24 Hours 03/08/21 03/09/21 03/10/21 23:59 23:59 23:59 Intake Total 1550 / 1550 2143.49 / 2164.43 546.74 / 546.74 Output Total 275 / 275 75 / 75 Balance 1550 / 1550 1868.49 / 1889.43 471.74 / 471.74 Lab / Micro Data Result Diagrams: 03/10/21 03:50 03/10/21 03:50 Labs: Laboratory Results - last 24 hr 03/09/21 07:30: MRSA (PCR) Negative 03/09/21 08:15: APTT > 250.0 H* 03/09/21 16:30: Ammonia 13.0 03/09/21 20:55: Total Creatine Kinase 619 H, Triglycerides 250 H 03/10/21 03:50: WBC 5.2, RBC 3.10 L, Hgb 8.4 L, Hct 27.6 L, MCV 89.0, MCH 27.1, MCHC 30.4 L, RDW Std Deviation 58.2 H, RDW Coeff of Issac 17.9 H, Plt Count 291, MPV 9.8, Immature Gran % (Auto) 4.300 H, Neut % (Auto) 73.8 H, Lymph % (Auto) 13.2 L, [place] % (Auto) 8.7, Eos % (Auto) 0.0, Baso % (Auto) 0.0, Absolute Neuts (auto) 3.8, Absolute Lymphs (auto) 0.68 L, Nucleated RBC % 0.6 03/10/21 03:50: Sodium 147 H, Potassium 3.7, Chloride 117 H, Carbon Dioxide 17.0 L, Anion Gap 13, BUN 63 H, Creatinine 5.00 H, Estim Creat Clear Calc 10.94, Est GFR (MDRD) Af Amer 11 L, Est GFR (MDRD) Non-Af 9 L, BUN/Creatinine Ratio 12.6, Glucose 120 H, Calcium 8.5, Total Bilirubin 0.60, AST 32, ALT 22, Alkaline Phosphatase 73, Total Protein 7.0, Albumin 1.8 L, Globulin 5.2 H, Albumin/Globulin Ratio 0.3 L Micro: Microbiology 03/08/21 21:14 Nasal Secretion SARS-CoV-2 Antigen (Rapid) - Final SARS-CoV-2 (COVID 19) ABG Data ABG results: ABG 03/09/21 03/09/21 16:41 21:56 Specimen Type ART ART Sample Site R Radial R Radial pH 7.26 L 7.49 H Bicarbonate Actual 22.9 17.1 L Total CO2 25 18 Base Excess -4 L -6 L O2 Saturation 87 L 98 O2 % 35 ABG pCO2 51.0 H 22.6 L ABG pO2 61 L 90 Kamran Test Positive N/A Respiration Rate 16 O2 Delivery Device Cannula Adult Vent Liter Flow 2.0 Vent Mode AC Tidal Volume 450 POC PEEP 5 Radiography Diagnostic Testing: Radiology Impression Renal Ultrasound 03/09/21 08:48 IMPRESSION: Non obstructive right renal parenchymal stones. Electronically Signed: Arthur Muniz MD at 17:32 EST , Chest X-Ray 03/09/21 20:10 IMPRESSION: There is a feeding tube/ nasogastric tube noted. The tip is not seen because it extends off the film. There is an endotracheal tube in place. The tip is 39 mm above the duane. This is in good position. Electronically Signed: Arthur Muniz MD at 20:45 EST , KUB X-Ray 03/09/21 20:10 IMPRESSION: 1. There is a feeding tube/ nasogastric tube noted. The tip is in the region of the stomach. 2. Double-J right ureteral stent. There are right renal calculi. Electronically Signed: Arthur Muniz MD at 20:46 EST , Physical Exam Const Constitutional Narrative: No myoclonus noted General Appearance: intubated and patient mechanically ventilated Nutritional Appearance: morbidly obese HEENT normocephalic and moist oral mucous membranes HEENT Narrative: Mallampati 4 Mouth: endotracheal tube in place and OG tube in place Eyes PERRL, EOMs intact bilaterally, conjunctivae normal and no scleral icterus Neck full ROM Chest inspection of chest normal Chest: symmetrical chest wall rise; Negative for crepitus Resp normal respiratory effort Effort and Inspection: Negative for actively coughing Auscultation: Negative for rales, rhonchi or wheezes Cardio regular rate, regular rhythm, S1 normal heart sound, S2 normal heart sound, no murmurs, no rub and no gallops GI normal to inspection, nondistended, normoactive bowel sounds Extremity General Extremity: edema bilateral (2+) lower extremity; Negative for clubbing Skin no rashes or lesions noted Neuro Neuro Narrative: Nonvocal. Significant myoclonic jerking noted, but tracks appropriately. No attempts to speak Psych Mood & Affect: flat affect Charges/Coding Procedures Hospitalists Procedures: [id number] Critial Care 1st Hr
[2021-03-10] MEDS: Chlorhexidine 15 ML PO ×2 (08:00→22:18)
[2021-03-10] MEDS: Propofol 10MG/Ml 1,000 MG/100 ML Bottle 19.2 MG CONT INF (08:30)
--- NOTE | 2021-03-10 09:10 | PCM.PN.REN ---
Subjective Subjective Events noted. Patient is now in ICU, intubated. Suspected seizures. Objective Data Objective Data Vital Signs: Vital Signs Temp Pulse Resp BP Pulse Ox 98.5 F 53 L 12 127/69 H 93 03/10/21 07:00 03/10/21 08:15 03/10/21 08:15 03/10/21 07:00 03/10/21 08:15 Oxygen Flow Rate (L/min) 2 Oxygen Delivery Method Mechanical Ventilator Weight: 91.4 kg Body Mass Index (BMI) 29.9 Intake & Output: Intake and Output for Last 24 Hours 03/08/21 03/09/21 03/10/21 23:59 23:59 23:59 Intake Total 1550 / 1550 2143.49 / 2164.43 575.94 / 575.94 Output Total 275 / 275 75 / 75 Balance 1550 / 1550 1868.49 / 1889.43 500.94 / 500.94 Lab / Micro Data Result Diagrams: 03/10/21 03:50 03/10/21 03:50 Labs: Laboratory Results - last 24 hr 03/09/21 07:30: MRSA (PCR) Negative 03/09/21 16:30: Ammonia 13.0 03/09/21 20:55: Total Creatine Kinase 619 H, Triglycerides 250 H 03/10/21 03:50: WBC 5.2, RBC 3.10 L, Hgb 8.4 L, Hct 27.6 L, MCV 89.0, MCH 27.1, MCHC 30.4 L, RDW Std Deviation 58.2 H, RDW Coeff of Issac 17.9 H, Plt Count 291, MPV 9.8, Immature Gran % (Auto) 4.300 H, Neut % (Auto) 73.8 H, Lymph % (Auto) 13.2 L, [place] % (Auto) 8.7, Eos % (Auto) 0.0, Baso % (Auto) 0.0, Absolute Neuts (auto) 3.8, Absolute Lymphs (auto) 0.68 L, Nucleated RBC % 0.6 03/10/21 03:50: Sodium 147 H, Potassium 3.7, Chloride 117 H, Carbon Dioxide 17.0 L, Anion Gap 13, BUN 63 H, Creatinine 5.00 H, Estim Creat Clear Calc 10.94, Est GFR (MDRD) Af Amer 11 L, Est GFR (MDRD) Non-Af 9 L, BUN/Creatinine Ratio 12.6, Glucose 120 H, Calcium 8.5, Total Bilirubin 0.60, AST 32, ALT 22, Alkaline Phosphatase 73, Total Protein 7.0, Albumin 1.8 L, Globulin 5.2 H, Albumin/Globulin Ratio 0.3 L Micro: Microbiology 03/08/21 21:14 Nasal Secretion SARS-CoV-2 Antigen (Rapid) - Final SARS-CoV-2 (COVID 19) ABG Data ABG results: ABG 03/09/21 03/09/21 16:41 21:56 Specimen Type ART ART Sample Site R Radial R Radial pH 7.26 L 7.49 H Bicarbonate Actual 22.9 17.1 L Total CO2 25 18 Base Excess -4 L -6 L O2 Saturation 87 L 98 O2 % 35 ABG pCO2 51.0 H 22.6 L ABG pO2 61 L 90 Kamran Test Positive N/A Respiration Rate 16 O2 Delivery Device Cannula Adult Vent Liter Flow 2.0 Vent Mode AC Tidal Volume 450 POC PEEP 5 Radiography Diagnostic Testing: Radiology Impression Renal Ultrasound 03/09/21 08:48 IMPRESSION: Non obstructive right renal parenchymal stones. Electronically Signed: Arthur Muniz MD at 17:32 EST , Chest X-Ray 03/09/21 20:10 IMPRESSION: There is a feeding tube/ nasogastric tube noted. The tip is not seen because it extends off the film. There is an endotracheal tube in place. The tip is 39 mm above the duane. This is in good position. Electronically Signed: Arthur Muniz MD at 20:45 EST , KUB X-Ray 03/09/21 20:10 IMPRESSION: 1. There is a feeding tube/ nasogastric tube noted. The tip is in the region of the stomach. 2. Double-J right ureteral stent. There are right renal calculi. Electronically Signed: Arthur Muniz MD at 20:46 EST Reading Location ID and State: [facility] / [place] , Service support , Physical Exam Narrative Intubated Exam minimize due to Covid \No urine output Assessment & Plan Assessment/Plan (1) Acute kidney injury: PLAN: Baseline creatinine prior to last admit was 1.8. At the time of discharge her creatinine was around 2.2-2.4. creatinine was slowly increasing at the shelter. Not much urine output overnight. Suspected seizures. Renal ultrasound without any hydronephrosis. We will plan for dialysis today. There is a chance that she might get transferred to another facility. Discussed with ICU attending (2) Myoclonus: (3) Chronic kidney disease, stage 3b:
--- NOTE | 2021-03-10 09:34 | RAD_ITS ---
STUDY: X-RAY CHEST REASON FOR EXAM: Female, 70 years old. Dialysis line placement TECHNIQUE: Single AP portable view of the chest. COMPARISON: Comparison is made with prior study dated 03/09/2021. FINDINGS: An endotracheal tube is in situ. The tip is at 4.2 cm proximal to the duane. An orogastric tube is seen with the tip in the body of the stomach just distal to the gastroesophageal junction. A right-sided dialysis catheter has been placed. The tip is in the right atrium. Mild increased markings at the lung bases suggestive of bibasilar atelectasis and/or early infiltrates. There is no demonstrated pleural abnormality. Normal size heart. Normal mediastinum and katey. Normal visualized pulmonary arteries. There is atherosclerotic calcification of the aortic arch with tortuosity. There are diffuse degenerative changes of the visualized thoracic spine. Normal visualized ribs, clavicles, and shoulders. There is no demonstrated abnormality of the visualized soft tissue structures of the upper abdomen. RAD/Chest 1 View (Portable) IMPRESSION: The right-sided dialysis catheter is seen with tip in the right atrium. Mild degree of increased markings at the lung bases suggestive of either atelectasis and/or early infiltrate. Electronically Signed: Morris Klein MD at 10:50 EST ,
--- NOTE | 2021-03-10 09:50 | PCM.OP.BLANK ---
Operative Report Date of Procedure: 03/10/21 Temporary dialysis catheter line placement procedure note Indication: Hemodialysis Procedure: A time-out was completed to verify correct patient, indication, medication allergies, procedure, coagulation studies, informed consent signed, and equipment needed. The patient was placed in the supine position for a central line placement to the rt IJ vein. The patients rt neck was prepped using chlorhexidine and a full body sterile drape was applied. 1% lidocaine was used to anesthetize the surrounding skin. A 12fr 20 cm temporary hemodialysis catheter introduced into the internal jugular vein using the modified Seldinger technique with the assistance of ultrasound. The site was dilated up twice in a stepwise fashion. The catheter was threaded smoothly over the guidewire, the guidewire was removed easily, nonpulsatile blood returned. All ports were aspirated of air and flushed with sterile saline. The catheter was sutured in place and covered with an occlusive dressing impregnated with chlorhexidine. Post-procedure: The patient tolerated the procedure well. Vital signs remained stable. EBL 3 cc. No complications. Chest X Ray ordered to confirm tip placement and the absence of pneumothorax. Procedures Hospitalists Procedures: [id number] Insert Non-tunnel CV Cath
[2021-03-10] MEDS: Propofol 10MG/Ml 1,000 MG/100 ML Bottle 13.7 MG CONT INF ×2 (10:25→23:00)
--- NOTE | 2021-03-10 10:47 | CASEMGMT ---
Insurance review for hospitals In-network with [facility] Dual HMO Insurance if transfer is recommended is as follows: [facility], [facility], [facility], [facility], [facility], [facility]), and . Dean PRESTONN RN CM
[2021-03-10 11:40] LABS: Hepatitis B Surface Antibody Reactive
--- NOTE | 2021-03-10 11:43 | PN.HOSP_ITS ---
Subjective Subjective Noted to have status epilepticus on EEG. Intubated. Dialysis catheter placed. Started on HD. Objective Data Objective Data Vital Signs: Vital Signs Temp Pulse Resp BP Pulse Ox 37.6 C H 40 L 15 143/76 H 97 03/10/21 08:00 03/10/21 11:00 03/10/21 11:00 03/10/21 11:00 03/10/21 11:00 Oxygen Flow Rate (L/min) 2 Oxygen Delivery Method Mechanical Ventilator Weight: 91.4 kg Body Mass Index (BMI) 29.9 Intake & Output: Intake and Output for Last 24 Hours 03/08/21 03/09/21 03/10/21 23:59 23:59 23:59 Intake Total 1550 / 1550 2143.49 / 2164.43 669.25 / 669.25 Output Total 275 / 275 175 / 175 Balance 1550 / 1550 1868.49 / 1889.43 494.25 / 494.25 Lab / Micro Data Result Diagrams: 03/10/21 03:50 03/10/21 03:50 Labs: Laboratory Results - last 24 hr 03/09/21 07:30: MRSA (PCR) Negative 03/09/21 16:30: Ammonia 13.0 03/09/21 20:55: Total Creatine Kinase 619 H, Triglycerides 250 H 03/10/21 03:50: WBC 5.2, RBC 3.10 L, Hgb 8.4 L, Hct 27.6 L, MCV 89.0, MCH 27.1, MCHC 30.4 L, RDW Std Deviation 58.2 H, RDW Coeff of Issac 17.9 H, Plt Count 291, MPV 9.8, Immature Gran % (Auto) 4.300 H, Neut % (Auto) 73.8 H, Lymph % (Auto) 13.2 L, [place] % (Auto) 8.7, Eos % (Auto) 0.0, Baso % (Auto) 0.0, Absolute Neuts (auto) 3.8, Absolute Lymphs (auto) 0.68 L, Nucleated RBC % 0.6 03/10/21 03:50: Sodium 147 H, Potassium 3.7, Chloride 117 H, Carbon Dioxide 17.0 L, Anion Gap 13, BUN 63 H, Creatinine 5.00 H, Estim Creat Clear Calc 10.94, Est GFR (MDRD) Af Amer 11 L, Est GFR (MDRD) Non-Af 9 L, BUN/Creatinine Ratio 12.6, Glucose 120 H, Calcium 8.5, Total Bilirubin 0.60, AST 32, ALT 22, Alkaline Phosphatase 73, Total Protein 7.0, Albumin 1.8 L, Globulin 5.2 H, Albumin/Globulin Ratio 0.3 L 03/10/21 10:50: Hep Bs Antibody Reactive Micro: Microbiology 03/09/21 19:50 Sputum, Induced/[place]ukens Gram Stain - Final 03/08/21 20:00 Urine Catheter - Catheter Urine Culture - Preliminary Culture exhibits no growth. 03/08/21 21:14 Nasal Secretion SARS-CoV-2 Antigen (Rapid) - Final SARS-CoV-2 (COVID 19) ABG Data ABG results: ABG 03/09/21 03/09/21 16:41 21:56 Specimen Type ART ART Sample Site R Radial R Radial pH 7.26 L 7.49 H Bicarbonate Actual 22.9 17.1 L Total CO2 25 18 Base Excess -4 L -6 L O2 Saturation 87 L 98 O2 % 35 ABG pCO2 51.0 H 22.6 L ABG pO2 61 L 90 Kamran Test Positive N/A Respiration Rate 16 O2 Delivery Device Cannula Adult Vent Liter Flow 2.0 Vent Mode AC Tidal Volume 450 POC PEEP 5 Radiography Diagnostic Testing: Radiology Impression Renal Ultrasound 03/09/21 08:48 IMPRESSION: Non obstructive right renal parenchymal stones. Electronically Signed: Arthur Muniz MD at 17:32 EST , Chest X-Ray 03/09/21 20:10 IMPRESSION: There is a feeding tube/ nasogastric tube noted. The tip is not seen because it extends off the film. There is an endotracheal tube in place. The tip is 39 mm above the duane. This is in good position. Electronically Signed: Arthur Muniz MD at 20:45 EST , KUB X-Ray 03/09/21 20:10 IMPRESSION: 1. There is a feeding tube/ nasogastric tube noted. The tip is in the region of the stomach. 2. Double-J right ureteral stent. There are right renal calculi. Electronically Signed: Arthur Muniz MD at 20:46 EST , Chest X-Ray 03/10/21 09:34 IMPRESSION: The right-sided dialysis catheter is seen with tip in the right atrium. Mild degree of increased markings at the lung bases suggestive of either atelectasis and/or early infiltrate. Electronically Signed: Morris Klein MD at 10:50 EST , Physical Exam Const Constitutional Narrative: Intubated, sedated. on HD. Eyes Eyes Narrative: cataracts. non-dilated pupils Resp normal respiratory effort and no retractions Cardio regular rate, regular rhythm, S1 normal heart sound and S2 normal heart sound GI normal to inspection, nondistended, normoactive bowel sounds, soft to palpation, non-tender and non-distended Extremity Extremity Narrative: scales on LE with normal skin. Assessment & Plan Assessment/Plan (1) Acute kidney injury: (2) Pneumonia due to COVID-19 virus: (3) UTI (urinary tract infection): QUALIFIERS: Urinary tract infection type: acute cystitis Hematuria presence: without hematuria Qualified Code(s): N30.00 - Acute cystitis without hematuria (4) Sepsis: QUALIFIERS: Sepsis type: sepsis due to unspecified organism Sepsis acute organ dysfunction status: with acute organ dysfunction Severe sepsis acute organ dysfunction type: acute renal failure Acute renal failure type: unspecified Severe sepsis shock status: without septic shock Qualified Code(s): A41.9 - Sepsis, unspecified organism; R65.20 - Severe sepsis without septic shock; N17.9 - Acute kidney failure, unspecified (5) Myoclonus: (6) Status epilepticus: (7) Acute respiratory failure, unspecified whether with hypoxia or hypercapnia: QUALIFIERS: Respiratory failure complication: hypoxia and hypercapnia Qualified Code(s): J96.01 - Acute respiratory failure with hypoxia; J96.02 - Acute respiratory failure with hypercapnia PLAN: 1. WHITLEY Cr 3.4 from 03/05, now 5.07 Post obstructive v ATN nephrology on consult avoid nephrotoxic agents renal US showed non-obstructive right renal parenchymal stones started HD on 03/10/21 2. COVID 19 + on the unclear when Sx began on dexamethasone no remdesivir given WHITLEY 3. Sepsis POA qSOFA score of 2 2/2 UTI, COVID 19 +/- bacterial pneumonia f/u Cx on pip/tazo and linezolid 4. UTI recently had a Proteus UTI on Pip/tazo 5. myoclonus may be metabolic or due to medications (i.e., gabapentin) not being adequately cleared given WHITLEY check EEG to r/o atypical Szr avoid potentiating medication 6. Recent ureteral stone nephrostomy tube placed at [facility] 7. VTE prophylaxis: change to SQ heparin 8. On apixaban at baseline: was not on prior to hospitalization at [facility] no EKG at [facility], no available documentation to suggest PE/DVT, afib DC hep gtt EKG here has a lot of artifact and cannot determine if afib (I suspect NSR as I see p-waves in V1) 9. Acute hypoxic and hypercapnic respiratory failure on vent 10. status epilepticus on levetiracetam accepted to [facility], awaiting on bed. Charges/Coding Visit Charges Inpatient E&M: 77049 Subs Hosp L3
[2021-03-10 11:50] LABS: Hepatitis B Surface Antigen Non-Reactive (Nonreactive)
--- NOTE | 2021-03-10 12:12 | EKG12_ITS ---
Test Reason : DAVID Blood Pressure : / mmHG Vent. Rate : 038 BPM Atrial Rate : 038 BPM P-R Int : 000 ms QRS Dur : 082 ms QT Int : 540 ms P-R-T Axes : 000 -06 020 degrees QTc Int : 429 ms Sinus bradycardia Abnormal ECG When compared with ECG of 08-MAR-2021 21:18, Junctional rhythm has replaced Atrial fibrillation Vent. rate has decreased BY [address] no longer elevated in Inferior leads ST elevation has replaced ST depression in Lateral leads Nonspecific T wave abnormality no longer evident in Anterior leads Confirmed by ZARI BO, EFRAIN ([id number]), publishing editor ALLEY JAIN ([id number]) on 03/11/2021 11:23:41 AM Referred By: DARI Confirmed By:JACQUELINE HAMEED MD
--- NOTE | 2021-03-10 12:47 | CHAPLAIN ---
Type of Pastoral Visit ___ Initial Visit ___ Follow-up Visit ___ On-call Visit ___ General Patient Visit ___ Spiritual Assessment ___ Family Conference ___ Bereavement ___ Rapid Response ___ Code Blue ___ Other (describe below) Pastoral Care Referral From ___ Patient ___ Family ___ Nurse ___ Physician ___ Station Baggage Agent ___ Aged Or Disabled Care Worker ___ Other (describe below) Sacrament/Intervention ___ Active listening ___ Anointing ___ Mandaen ___ Bereavement ___ Communion ___ Marybeth exploration ___ ___ Life review ___ Prayer ___ Reconciliation ___ Sacrament of Sick ___ Supportive presence ___ Wedding ___ Other (describe below) Pastoral Comments patient is on vent and 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
--- NOTE | 2021-03-10 14:21 | DIALYSIS ---
HD discontinued 28 minutes early d/t venous chamber clotting causing increased FIELD STAFF. Blood was returned. Ran on 3k bath. Fluid positive 240ml post tx. Used temporary right IJ dialysis catheter. Lumens closed with heparin per fill volume. Caps placed. Dressing is dry and intact. See tx sheet for more details. Report was given to JOSE E Tate.
[2021-03-10] MEDS: Heparin 10,000 UNITS/10 ML Vial 1000 UNITS IV (15:07)
[2021-03-10] MEDS: Piperacil/Tazobactam 3.375 GM/50 ML ML IV ×2 (15:46→22:23)
[2021-03-10] MEDS: Linezolid 600 MG 600 MG/300 ML BAG 200 MG IV ×2 (15:48→22:18)
--- NOTE | 2021-03-10 15:51 | PCM.OP.BLANK ---
Operative Report Date of Procedure: 03/10/21 Central line placement procedure note Indication: IV access/hemodynamic instability/vasoactive medications Procedure: A time-out was completed to verify correct patient, indication, medication allergies, procedure, coagulation studies, informed consent signed, and equipment needed. The patient was placed in the supine position for a central line placement to the left IJ vein. The patients left neck was prepped using chlorhexidine and a full body sterile drape was applied. 1% lidocaine was used to anesthetize the surrounding skin. Attempted to gain access to the left IJ x2. Unsuccessful. Pressure to the insertion site to obtain hemostasis. No signs of complications, including hematoma. Procedures Hospitalists Procedures: [id number] Insert Non-tunnel CV Cath
--- NOTE | 2021-03-10 16:54 | NURSING ---
call to Dr Sims office, spoke with Coby Andrade . Per Coby Sims gave consent for PICC to be placed in new intermittent dialysis pt.
[2021-03-10] MEDS: dexAMETHasone 10 MG/ML Vial 6 MG IV (17:52)
--- NOTE | 2021-03-10 19:30 | ECHOL_ITS ---
Reason For Study: ARRHYTHMIA Procedure This was a limited 2D transthoracic echocardiogram. The study was technically limited. Limited views were obtained. Due to body habitus and heartrate/arrhythmia. Exam performed portable in ICU/CCU. Left Ventricle Normal LV size. Left ventricular systolic function is normal. The estimated ejection fraction is 53 %. No regional wall motion abnormalities noted. Right Ventricle Normal RV size. Normal systolic function. Atria The left atrium is mildly enlarged. Normal right atrium. Mitral Valve Normal mitral valve. Tricuspid Valve Normal tricuspid valve. Mild tricuspid valve insufficiency. Pulmonary artery systolic pressure is 18 mmHg. Great Vessels Normal aortic root. Pericardium/Pleural No pericardial effusion. MMode/2D Measurements & Calculations LVIDd: 4.5 cm IVSd: 0.92 cm LA dimension: 3.8 cm LVIDs: 3.2 cm LVPWd: 1.1 cm FS: 30.1 % LAV(MOD-bp): 60.0 ml LA A4 area: 20.3 cm2 RA A4 area: 10.6 cm2 LAV(MOD-bp) Indexed: 28.3 ml/m2 LAV(MOD-sp2): 60.6 ml LAV(MOD-sp4): 61.1 ml Doppler Measurements & Calculations PA V2 max: 74.3 cm/sec TR max cydney: 193.4 cm/sec TR max P.0 mmHg ECHO/Echo, Limited Study Interpretation Summary Normal LV size. Left ventricular systolic function is normal. The estimated ejection fraction is 53 %. The left atrium is mildly enlarged. The study was technically limited. Ordering Physician: Jamal Lowery Referring Physician: GREY MERRITT Performed By: Mel Busch, EFREN, RVT
--- NOTE | 2021-03-10 19:33 | PCM.CONS.C ---
Assessment & Plan Assessment/Plan (1) Bradycardia: PLAN: The patient is noted to be bradycardic though the etiology is not entirely clear at this particular time. Patient has been dialyzed and thus it does not appear to be related to electrolyte abnormalities. I would like to obtain a TSH to make sure that there is no thyroid abnormality. A limited echo should also be performed to assess her ventricular function. We will continue to monitor her. It does not appear that this is related to her status epilepticus state on medication. We will continue to observe for now as there may be electrolyte shifts which may contribute to the above. At this time however there does not appear to be a reason to pursue pacemaker implantation. Thank you for allowing me to participate in the care of your patient. Please don't hesitate to call if any issues arise. HPI Consult Data Date of Consult: 03/10/21 HPI Narrative HPI Narrative: MICHAEL MARROQUNI, is a 70 F who presents to the hospital with worsening malaise. She has a history of partial nephrectomy, alcoholism and recently diagnosed urinary tract infection sepsis, renal failure and Covid. Patient is on admission in the intensive care unit and was recently noted to be bradycardic. Cardiology was called for further evaluation and management. Patient apparently has also developed status epilepticus and is on treatment for the above. Her initial EKG demonstrated sinus rhythm. She has now developed more of a junctional rhythm with a normal blood pressure. Due to his significant renal dysfunction she underwent dialysis today. She is intubated and cannot provide a history. [facility] Medical History Anemia Idiopathic neuropathy Insomnia Kidney disease Venous (peripheral) insufficiency Home Medications apixaban [Eliquis] 2.5 mg PO BID 03/08/21 [History Last Taken 03/08/21] ascorbic acid (vitamin C) 500 mg PO DAILY 03/08/21 [History Last Taken 03/08/21] cephalexin [Keflex] 500 mg PO BID 03/08/21 [History Last Taken 03/08/21] cholecalciferol (vitamin D3) 125 mcg PO DAILY 03/08/21 [History Last Taken 03/08/21] gabapentin 300 mg PO BID 03/08/21 [History Last Taken 03/08/21] linaclotide [Linzess] 290 mcg PO DAILY 03/08/21 [History Last Taken 03/08/21] morphine 15 mg PO BID 03/08/21 [History Last Taken 03/08/21] morphine 30 mg PO Q12H 03/08/21 [History Last Taken Unknown] multivitamin 1 tab PO DAILY 03/08/21 [History Last Taken 03/08/21] polyethylene glycol 3350 17 g PO DAILY 03/08/21 [History Last Taken 03/08/21] tamsulosin 0.4 mg PO QHS 03/08/21 [History Last Taken Unknown] trazodone 150 mg PO QODAY 03/08/21 [History Last Taken Unknown] venlafaxine 150 mg PO DAILY 03/08/21 [History Last Taken 03/08/21] zinc 50 mg PO DAILY 03/08/21 [History Last Taken 03/08/21] Allergy/AdvReac Type Severity Reaction Status Date / Time codeine Allergy PT UNABLE Verified 03/08/21 20:39 TO RESPOND-NEEDS F/U hydrocodone Allergy PT UNABLE Verified 03/08/21 20:39 TO RESPOND-NEEDS F/U Family History Other Breast cancer Diabetes Surgical History H/O: hysterectomy History of nephrectomy Social History Smoking Status: Never smoker ROS ROS Narrative This is being obtained through chart review as patient is intubated Constitutional Constitutional: Denies fever(s) or weight loss Eyes Eyes: Reports systems reviewed and no addt'l complaints, except as documented ENT HEENT: Reports systems reviewed and no addt'l complaints, except as documented Cardiovascular Cardiovascular: Denies chest pain at rest, chest pain with activity, dyspnea at rest, dyspnea on exertion, edema, palpitations or paroxysmal nocturnal dyspnea Respiratory/Chest Respiratory/Chest: Denies dyspnea on exertion, productive cough, shortness of breath at rest or shortness of breath with exertion Gastrointestinal Gastrointestinal: Denies change in bowel habits, nausea, vomiting or weight changes Genitourinary Genitourinary: Denies difficulty urinating Musculoskeletal Musculoskeletal: Denies joint stiffness or muscle weakness Integumentary Integumentary: Denies lesions Neurologic Neurologic: Denies dizziness or syncope Psychiatric Psychiatric: Denies anxiety Endocrine Endocrinology: Denies excessive sweating or fatigue Hematologic/Lymphatic Hematologic/Lymphatic: Denies anemia Allergic/Immunologic Allergic/Immunologic: Denies seasonal rhinorrhea Risk Stratification Risk Stratification Applicable: No Objective Data Vital Signs: Vital Signs Temp Pulse Resp BP Pulse Ox 98.1 F 46 L 16 127/73 H 94 03/10/21 16:00 03/10/21 18:00 03/10/21 18:00 03/10/21 18:00 03/10/21 18:00 Oxygen Flow Rate (L/min) 2 Oxygen Delivery Method Mechanical Ventilator Weight: 201 lb 8.04 oz Body Mass Index (BMI) 29.9 Intake & Output: Intake and Output for Last 24 Hours 03/08/21 03/09/21 03/10/21 23:59 23:59 23:59 Intake Total 1550 / 1550 2143.49 / 2164.43 1697.31 / 1697.31 Output Total 275 / 275 320 / 320 Balance 1550 / 1550 1868.49 / 1889.43 1377.31 / 1377.31 Lab / Micro Data Result Diagrams: 03/10/21 03:50 03/10/21 03:50 Labs: Laboratory Results - last 24 hr 03/09/21 20:55: Total Creatine Kinase 619 H, Triglycerides 250 H 03/10/21 03:50: WBC 5.2, RBC 3.10 L, Hgb 8.4 L, Hct 27.6 L, MCV 89.0, MCH 27.1, MCHC 30.4 L, RDW Std Deviation 58.2 H, RDW Coeff of Issac 17.9 H, Plt Count 291, MPV 9.8, Immature Gran % (Auto) 4.300 H, Neut % (Auto) 73.8 H, Lymph % (Auto) 13.2 L, [place] % (Auto) 8.7, Eos % (Auto) 0.0, Baso % (Auto) 0.0, Absolute Neuts (auto) 3.8, Absolute Lymphs (auto) 0.68 L, Nucleated RBC % 0.6 03/10/21 03:50: Sodium 147 H, Potassium 3.7, Chloride 117 H, Carbon Dioxide 17.0 L, Anion Gap 13, BUN 63 H, Creatinine 5.00 H, Estim Creat Clear Calc 10.94, Est GFR (MDRD) Af Amer 11 L, Est GFR (MDRD) Non-Af 9 L, BUN/Creatinine Ratio 12.6, Glucose 120 H, Calcium 8.5, Total Bilirubin 0.60, AST 32, ALT 22, Alkaline Phosphatase 73, Total Protein 7.0, Albumin 1.8 L, Globulin 5.2 H, Albumin/Globulin Ratio 0.3 L 03/10/21 10:50: Hep Bs Antibody Reactive 03/10/21 10:50: Hep Bs Antigen Non-Reactive Micro: Microbiology 03/09/21 19:50 Sputum, Induced/Lukens Gram Stain - Final 03/09/21 19:50 Sputum, Induced/Lukens Respiratory Culture - Preliminary Yeast 03/08/21 20:00 Urine Catheter - Catheter Urine Culture - Preliminary Culture exhibits no growth. ABG Data ABG results: ABG 03/09/21 21:56 Specimen Type ART Sample Site R Radial pH 7.49 H Bicarbonate Actual 17.1 L Total CO2 18 Base Excess -6 L O2 Saturation 98 O2 % 35 ABG pCO2 22.6 L ABG pO2 90 Kamran Test N/A Respiration Rate 16 O2 Delivery Device Adult Vent Vent Mode AC Tidal Volume 450 POC PEEP 5 Cardiology Labs/Tests 03/09/21 20:55: Triglycerides 250 H 03/09/21 21:56: pH 7.49 H, Bicarbonate Actual 17.1 L, Base Excess -6 L, O2 Saturation 98, ABG pCO2 22.6 L, ABG pO2 90, Kamran Test N/A 03/10/21 03:50: WBC 5.2, RBC 3.10 L, Hgb 8.4 L, Hct 27.6 L, MCV 89.0, MCH 27.1, MCHC 30.4 L, Plt Count 291, MPV 9.8, Immature Gran % (Auto) 4.300 H, Neut % (Auto) 73.8 H, Lymph % (Auto) 13.2 L, [place] % (Auto) 8.7, Eos % (Auto) 0.0, Baso % (Auto) 0.0, Absolute Neuts (auto) 3.8, Nucleated RBC % 0.6 03/10/21 03:50: Sodium 147 H, Potassium 3.7, Chloride 117 H, Carbon Dioxide 17.0 L, Anion Gap 13, BUN 63 H, Creatinine 5.00 H, Est GFR (MDRD) Af Amer 11 L, Est GFR (MDRD) Non-Af 9 L, BUN/Creatinine Ratio 12.6, Glucose 120 H, Calcium 8.5, Total Bilirubin 0.60 Rhythm: EKG: ECHO: Stress Test: Cardiac Cath: PCI: CT Surgery: Holter monitor: EPS: PPM: CXR: Chest CT Scan: Radiography Diagnostic Testing: Radiology Impression Chest X-Ray 03/09/21 20:10 IMPRESSION: There is a feeding tube/ nasogastric tube noted. The tip is not seen because it extends off the film. There is an endotracheal tube in place. The tip is 39 mm above the duane. This is in good position. Electronically Signed: Arthur Muniz MD at 20:45 EST , KUB X-Ray 03/09/21 20:10 IMPRESSION: 1. There is a feeding tube/ nasogastric tube noted. The tip is in the region of the stomach. 2. Double-J right ureteral stent. There are right renal calculi. Electronically Signed: Arthur Muniz MD at 20:46 EST , Chest X-Ray 03/10/21 09:34 IMPRESSION: The right-sided dialysis catheter is seen with tip in the right atrium. Mild degree of increased markings at the lung bases suggestive of either atelectasis and/or early infiltrate. Electronically Signed: Morris Klein MD at 10:50 EST ,
--- NOTE | 2021-03-10 20:19 | NURSING ---
assistant finance manager at bedside to attempt PICC line insertion
--- NOTE | 2021-03-10 21:15 | RAD_ITS ---
INDICATION: PICC line placement EXAMINATION/TECHNIQUE: X-RAY - XR Chest 1 View COMPARISON: CT chest 03/09/2021 and chest x-ray 03/10/2021 FINDINGS: LINES/DEVICES: Large bore, right IJ central venous catheter, in the right atrium. Endotracheal tube 3 cm from the duane. Left PICC line tip at the proximal cavoatrial junction. Enteric tube proximal side port several centimeters below the diaphragm. LUNGS: Bibasilar airspace disease and fluid in the right minor fissure not significantly changed compared to prior exam. No pneumothorax. No nodule or mass. MEDIASTINUM AND CARDIOVASCULAR STRUCTURES: Normal size and contour of the cardiomediastinal silhouette. No evidence of pulmonary vascular congestion. BONES AND SOFT TISSUES: Catheter projects over the right kidney region, incompletely visualized. RAD/CXR for Line Placement IMPRESSION: 1. Evidence of pleural effusion and bibasilar airspace disease likely representing atelectasis. 2. New PICC line tip at the proximal cavoatrial junction. 3. No interval change right IJ central venous catheter in the right atrium, endotracheal tube and enteric tube. Electronically Signed: Maxime Mercer DO at 22:31 EST ,
--- NOTE | 2021-03-10 21:49 | NURSING ---
DR Merchant verifies PICC placement, telephone order recieved OK to use PICC line
[2021-03-10] MEDS: Acetaminophen 650 MG Suppository RC (22:13)
[2021-03-10] MEDS: Ammonium Lactate 225 gm Bottle 1 APPLIC TOPICAL (22:41)
[2021-03-10 23:13] LABS: International Normalized Ratio 1.1; Prothrombin Time (Protime)PT. 13.6 SECONDS (11.7-14.9)
[2021-03-11] VITALS (34 sets, daily range): BP systolic 104–164; BP diastolic 67–105; PULSE 36–155; RESP 12–22; TEMP 35.5–37.2; O2SAT 94–100
[2021-03-11 03:57] LABS: Absolute Neutrophil Count 5.3 X10^3/uL (2.0-7.7); Basophil# 0.01 X10^3/uL; Basophil% 0.2 % (0-1); Hematocrit 27.6 % (37-47); Hemoglobin 8.9 g/dL (12.0-15.0); Lymphocyte % 6.4 % (19-41); Mean Corp Hgb Conc 32.2 g/dL (32-36); Mean Corpuscular Hgb 27.6 pg (27.0-32.0); Mean Corpuscular Volume 85.4 fL (81-99); Mean Platelet Vol. 9.6 fl (6.2-12.0); Monocyte# 0.39 X10^3/uL; Monocyte% 6.2 % (0-10); NRBC Flagged by Analyzer 0.3 % (0-5); Neutrophil # 5.28 X10^3/uL (2.7-7.7); Neutrophil % 84.5 % (47-70); POSITIVE DIFFERENTIAL YES; Platelet Count 257 K/mm3 (150-450); RBC Distribution Width CV 17.6 % (11.6-14.6); RBC Distribution Width SD 54.8 fl (35.1-43.9); Red Blood Count 3.23 M/mm3 (4.2-5.4); White Blood Count 6.3 K/mm3 (4.4-11.0)
[2021-03-11 03:59] LABS: Differential Indicated SCAN CRITERIA MET
[2021-03-11 04:20] LABS: Anion Gap 9 (5-15); BUN 36 mg/dL (7-18); BUN/Creat Ratio 11.2 RATIO (10-20); Calcium,Total 8.3 mg/dL (8.5-10.1); Chloride 106 mmol/L (98-107); Creatinine, Serum 3.22 mg/dL (0.55-1.02); EST Glomerular Filtration Rate 15 mL/min (>60); Est Glom Filt Rate - Afr Amer 18 mL/min (>60); Estimated Creatinine Clearance 16.99 ml/min; Glucose 112 mg/dL (74-106); Potassium 3.6 mmol/L (3.5-5.1); Sodium Level 141 mmol/L (136-145); Thyroid Stim Hormone (TSH) 0.29 uIU/mL (0.358-3.74)
--- NOTE | 2021-03-11 04:53 | EKG12_ITS ---
Test Reason : A-FIB Blood Pressure : / mmHG Vent. Rate : 134 BPM Atrial Rate : 138 BPM P-R Int : 000 ms QRS Dur : 080 ms QT Int : 354 ms P-R-T Axes : 000 -03 000 degrees QTc Int : 528 ms Atrial fibrillation Abnormal ECG No previous ECGs available Confirmed by RUSSELL BO, ARAVIND ([id number]), sound editor ALLEY JAIN ([id number]) on 03/16/2021 11:15:33 AM Referred By: LIVIA Confirmed By:ARAVIND WELLS MD
[2021-03-11] MEDS: dilTIAZem 25 MG/5 ML Vial 10 MG IV BOLUS (05:24)
[2021-03-11] MEDS: CHLORHEXIDINE GLUC 2% CLOTH 1 EACH TOWELETTE TOPICAL (05:24)
[2021-03-11 05:37] LABS: Differential Comment SCANNED
[2021-03-11 07:22] LABS: Magnesium 2.1 mg/dL (1.6-2.6)
--- NOTE | 2021-03-11 07:24 | PCM.PN.INT ---
Assessment & Plan Assessment/Plan (1) Pneumonia due to COVID-19 virus: (2) UTI (urinary tract infection): QUALIFIERS: Hematuria presence: without hematuria Urinary tract infection type: acute cystitis Qualified Code(s): N30.00 - Acute cystitis without hematuria (3) Acute kidney injury: PLAN: RECOMMENDATIONS: 1. Await transfer to tertiary neuro intensive care unit 2. Probable dialysis today 3. Spontaneous breathing and awakening trials per protocol 4. Monitor mentation for possible extubation 5. No baricitinib or Remdesivir given renal status 6. Agree with empiric MDRO antibiotics given recent hospitalization. Cultures pending 7. Await cardiology recommendations on A. fib 8. Continue Decadron to complete 10 days (03/17/2021) IMPRESSIONS: 1. Acute on chronic kidney disease stage IV with previous stent Patient's urinalysis shows significant pyuria without bacteria and worsening creatinine. Patient may have a postobstructive component. Await ultrasound for evaluation. Uremia may be adding to myoclonic jerking and patient does have hyperkalemia. Do agree with broadening antibiotics given patient's recent hospitalization/antibiotics and foreign body. Sputum is growing yeast from sputum, but given patient is afebrile and not neutropenic it is likely a contaminant. Await nephrology recommendations 2. Acute hypoxic respiratory failure secondary to status epilepticus in the setting of COVID-19 Patient is requiring supplemental oxygen to maintain saturations. Patient has tested positive for COVID-19. IV fluids will be discontinued. Patient is oxygenating well despite COVID-19. Patient is on Decadron. Patient is not a candidate for Remdesivir or baricitinib because of poor creatinine clearance. Vaccination status is unclear at this time. Patient with minimal oxygen requirements at this time, but given mental status, plan on continuing airway protection. Attempt to optimize cardiovascular status before extubation 3. Encephalopathy secondary to status epilepticus Patient reportedly has a history of tics but currently is having significant myoclonic activity. Patient is much more appropriate at this time on Keppra. No myoclonic jerking is noted. This would be consistent with possible status epilepticus earlier in the hospitalization. EEG was negative, but had multiple artifacts. Still waiting for a bed at [facility] 4. Morbid obesity/poor history/repeated hospitalizations/anemia Complicates care, management, recovery and prognosis. Recommend n.p.o. status until neurologi status can be improved. 5. Junctional bradycardia with new onset A. fib RVR Cardiology currently consulted. Patient was given Cardizem, but concerned that if patient converts this could worsen junctional bradycardia. Await cardiology recommendations. Hold on extubation until plan is made. Patient is not anticoagulated, but has had some questionable coffee-ground gastric secretions. TIME: 34 minutes critical care time spent addressing patient's acute kidney injury, respiratory failure, COVID-19, myoclonic jerking, review of all data and collaboration with care team. Subjective Subjective Patient did okay overnight. No acute issues were noted with dialysis outside of bradycardia. This morning, patient had a spontaneous awakening trial and did well, but then developed A. fib with RVR. Patient is opening her eyes and making eye contact. No myoclonic jerking has been noted. Patient does follow some commands. Multiple attempts at an IJ were unsuccessful, so ultimately a PICC was placed. Objective Data Objective Data Vital Signs: Vital Signs Temp Pulse Resp BP Pulse Ox 36.4 C L 106 H 14 125/94 H 95 03/11/21 06:00 03/11/21 06:00 03/11/21 06:00 03/11/21 06:00 03/11/21 06:00 Oxygen Flow Rate (L/min) 2 Oxygen Delivery Method Mechanical Ventilator Weight: 96.6 kg Body Mass Index (BMI) 29.9 Intake & Output: Intake and Output for Last 24 Hours 03/09/21 03/10/21 03/11/21 23:59 23:59 23:59 Intake Total 2143.49 / 2164.43 2054.70 / 2075.90 457.25 / 457.25 Output Total 275 / 275 320 / 320 Balance 1868.49 / 1889.43 1734.70 / 1755.90 457.25 / 457.25 Lab / Micro Data Result Diagrams: 03/11/21 03:20 03/11/21 03:20 Labs: Laboratory Results - last 24 hr 03/10/21 10:50: Hep Bs Antibody Reactive 03/10/21 10:50: Hep Bs Antigen Non-Reactive 03/10/21 22:47: PT 13.6, INR 1.1 03/11/21 03:20: WBC 6.3, RBC 3.23 L, Hgb 8.9 L, Hct 27.6 L, MCV 85.4, MCH 27.6, MCHC 32.2 D, RDW Std Deviation 54.8 H, RDW Coeff of Issac 17.6 H, Plt Count 257, MPV 9.6, Immature Gran % (Auto) 2.700 H, Neut % (Auto) 84.5 H, Lymph % (Auto) 6.4 L, [place] % (Auto) 6.2, Eos % (Auto) 0.0, Baso % (Auto) 0.2, Absolute Neuts (auto) 5.3, Absolute Lymphs (auto) 0.40 L, Nucleated RBC % 0.3, Differential Comment SCANNED 03/11/21 03:20: Sodium 141, Potassium 3.6, Chloride 106, Carbon Dioxide 26.0, Anion Gap 9, BUN 36 H, Creatinine 3.22 H, Estim Creat Clear Calc 16.99, Est GFR (MDRD) Af Amer 18 L, Est GFR (MDRD) Non-Af 15 L, BUN/Creatinine Ratio 11.2, Glucose 112 H, Calcium 8.3 L, TSH 0.29 L 03/11/21 03:20: Magnesium 2.1 Micro: Microbiology 03/09/21 19:50 Sputum, Induced/Lukens Gram Stain - Final 03/09/21 19:50 Sputum, Induced/Lukens Respiratory Culture - Preliminary Yeast 03/08/21 20:00 Urine Catheter - Catheter Urine Culture - Preliminary Culture exhibits no growth. 03/08/21 21:14 Nasal Secretion SARS-CoV-2 Antigen (Rapid) - Final SARS-CoV-2 (COVID 19) Radiography Diagnostic Testing: Radiology Impression Chest X-Ray 03/10/21 09:34 IMPRESSION: The right-sided dialysis catheter is seen with tip in the right atrium. Mild degree of increased markings at the lung bases suggestive of either atelectasis and/or early infiltrate. Electronically Signed: Morris Klein MD at 10:50 EST , Chest X-Ray 03/10/21 21:15 IMPRESSION: 1. Evidence of pleural effusion and bibasilar airspace disease likely representing atelectasis. 2. New PICC line tip at the proximal cavoatrial junction. 3. No interval change right IJ central venous catheter in the right atrium, endotracheal tube and enteric tube. Electronically Signed: Maxime WhitfieldDO juan carlos at 22:31 EST , Physical Exam Const Constitutional Narrative: No myoclonus noted General Appearance: intubated and patient mechanically ventilated Nutritional Appearance: morbidly obese HEENT normocephalic and moist oral mucous membranes HEENT Narrative: Mallampati 4 Mouth: endotracheal tube in place and OG tube in place Eyes PERRL, EOMs intact bilaterally, conjunctivae normal and no scleral icterus Neck full ROM Chest inspection of chest normal Chest: symmetrical chest wall rise; Negative for crepitus Resp normal respiratory effort Effort and Inspection: Negative for actively coughing Auscultation: Negative for rales, rhonchi or wheezes Cardio regular rate, regular rhythm, S1 normal heart sound, S2 normal heart sound, no murmurs, no rub and no gallops GI normal to inspection, nondistended, normoactive bowel sounds Extremity General Extremity: edema bilateral (2+) lower extremity; Negative for clubbing Skin no rashes or lesions noted Neuro Neuro Narrative: Nonvocal. No myoclonic jerking noted and tracks appropriately. No attempts to speak Psych Mood & Affect: flat affect Charges/Coding Procedures Hospitalists Procedures: [id number]
[2021-03-11] MEDS: Chlorhexidine 15 ML PO ×2 (09:27→22:00)
[2021-03-11] MEDS: Ammonium Lactate 225 gm Bottle 1 APPLIC TOPICAL ×2 (09:27→22:00)
[2021-03-11] MEDS: dexAMETHasone 10 MG/ML Vial 6 MG IV (09:27)
--- NOTE | 2021-03-11 10:31 | PCM.PN.HOSP ---
Subjective Subjective Opens eyes to voice. Still awaiting on transfer to [facility]. Objective Data Objective Data Vital Signs: Vital Signs Temp Pulse Resp BP Pulse Ox 36.7 C 132 H 12 123/93 H 98 03/11/21 07:00 03/11/21 08:00 03/11/21 07:00 03/11/21 07:00 03/11/21 07:00 Oxygen Flow Rate (L/min) 2 Oxygen Delivery Method Mechanical Ventilator Weight: 96.6 kg Body Mass Index (BMI) 29.9 Intake & Output: Intake and Output for Last 24 Hours 03/09/21 03/10/21 03/11/21 23:59 23:59 23:59 Intake Total 2143.49 / 2164.43 2054.70 / 2075.90 492.92 / 492.92 Output Total 275 / 275 320 / 320 Balance 1868.49 / 1889.43 1734.70 / 1755.90 492.92 / 492.92 Lab / Micro Data Result Diagrams: 03/11/21 03:20 03/11/21 03:20 Labs: Laboratory Results - last 24 hr 03/10/21 10:50: Hep Bs Antibody Reactive 03/10/21 10:50: Hep Bs Antigen Non-Reactive 03/10/21 22:47: PT 13.6, INR 1.1 03/11/21 03:20: WBC 6.3, RBC 3.23 L, Hgb 8.9 L, Hct 27.6 L, MCV 85.4, MCH 27.6, MCHC 32.2 D, RDW Std Deviation 54.8 H, RDW Coeff of Issac 17.6 H, Plt Count 257, MPV 9.6, Immature Gran % (Auto) 2.700 H, Neut % (Auto) 84.5 H, Lymph % (Auto) 6.4 L, [place] % (Auto) 6.2, Eos % (Auto) 0.0, Baso % (Auto) 0.2, Absolute Neuts (auto) 5.3, Absolute Lymphs (auto) 0.40 L, Nucleated RBC % 0.3, Differential Comment SCANNED 03/11/21 03:20: Sodium 141, Potassium 3.6, Chloride 106, Carbon Dioxide 26.0, Anion Gap 9, BUN 36 H, Creatinine 3.22 H, Estim Creat Clear Calc 16.99, Est GFR (MDRD) Af Amer 18 L, Est GFR (MDRD) Non-Af 15 L, BUN/Creatinine Ratio 11.2, Glucose 112 H, Calcium 8.3 L, TSH 0.29 L 03/11/21 03:20: Magnesium 2.1 Micro: Microbiology 03/08/21 20:00 Urine Catheter - Catheter Urine Culture - Final Culture exhibits no growth. 03/09/21 19:50 Sputum, Induced/Lukens Gram Stain - Final 03/09/21 19:50 Sputum, Induced/Lukens Respiratory Culture - Preliminary Yeast 03/08/21 21:14 Nasal Secretion SARS-CoV-2 Antigen (Rapid) - Final SARS-CoV-2 (COVID 19) Radiography Diagnostic Testing: Radiology Impression Chest X-Ray 03/10/21 09:34 IMPRESSION: The right-sided dialysis catheter is seen with tip in the right atrium. Mild degree of increased markings at the lung bases suggestive of either atelectasis and/or early infiltrate. Electronically Signed: Morris Klein MD at 10:50 EST , Chest X-Ray 03/10/21 21:15 IMPRESSION: 1. Evidence of pleural effusion and bibasilar airspace disease likely representing atelectasis. 2. New PICC line tip at the proximal cavoatrial junction. 3. No interval change right IJ central venous catheter in the right atrium, endotracheal tube and enteric tube. Electronically Signed: Maxime Mercer DO at 22:31 EST , Physical Exam Const Constitutional Narrative: opens eyes to voice. does not follow commands. intubated. HEENT Head and Scalp: normocephalic Neck no lymphadenopathy Resp normal respiratory effort, no retractions, no use of accessory muscles and clear to auscultation bilaterally Cardio regular rate, regular rhythm, S1 normal heart sound and S2 normal heart sound GI normal to inspection, nondistended, normoactive bowel sounds, soft to palpation, non-tender and non-distended Extremity normal to inspection Skin no rashes or lesions noted Neuro Neuro Narrative: no clonus Assessment & Plan Assessment/Plan (1) Acute kidney injury: (2) Pneumonia due to COVID-19 virus: (3) UTI (urinary tract infection): QUALIFIERS: Urinary tract infection type: acute cystitis Hematuria presence: without hematuria Qualified Code(s): N30.00 - Acute cystitis without hematuria (4) Sepsis: QUALIFIERS: Sepsis type: sepsis due to unspecified organism Sepsis acute organ dysfunction status: with acute organ dysfunction Severe sepsis acute organ dysfunction type: acute renal failure Acute renal failure type: unspecified Severe sepsis shock status: without septic shock Qualified Code(s): A41.9 - Sepsis, unspecified organism; R65.20 - Severe sepsis without septic shock; N17.9 - Acute kidney failure, unspecified (5) Myoclonus: (6) Status epilepticus: (7) Acute respiratory failure, unspecified whether with hypoxia or hypercapnia: QUALIFIERS: Respiratory failure complication: hypoxia and hypercapnia Qualified Code(s): J96.01 - Acute respiratory failure with hypoxia; J96.02 - Acute respiratory failure with hypercapnia PLAN: 1. WHITLEY Oliguric Post obstructive v ATN nephrology on consult avoid nephrotoxic agents renal US showed non-obstructive right renal parenchymal stones started HD on 03/10/21 2. COVID 19 + on the unclear when Sx began on dexamethasone no remdesivir nor baricitinib given WHITLEY 3. Sepsis POA qSOFA score of 2 2/2 UTI, COVID 19 +/- bacterial pneumonia f/u Cx on pip/tazo and linezolid 4. UTI recently had a Proteus UTI on Pip/tazo 5. status epilepticus on levetiracetam accepted to [facility], awaiting on bed. 6. Recent ureteral stone nephrostomy tube placed at [facility] 7. VTE prophylaxis: change to SQ heparin 8. On apixaban at baseline: was not on prior to hospitalization at [facility] no EKG at [facility], no available documentation to suggest PE/DVT, afib DC hep gtt EKG here has a lot of artifact and cannot determine if afib (I suspect NSR as I see p-waves in V1) 9. Acute hypoxic and hypercapnic respiratory failure on vent 10. bradycardia improved, now tachycardic cardiology consulted--no need for PPM Prognosis: guarded. Charges/Coding Visit Charges Inpatient E&M: 17076 Subs Hosp L2
[2021-03-11] MEDS: Propofol 10MG/Ml 1,000 MG/100 ML Bottle 5.5 MG CONT INF (11:19)
[2021-03-11 11:46] LABS: Bedside Glucose 110 mg/dL (70-110)
[2021-03-11] MEDS: Piperacil/Tazobactam 3.375 GM/50 ML ML IV ×2 (14:29→22:00)
[2021-03-11] MEDS: Linezolid 600 MG 600 MG/300 ML BAG 200 MG IV ×2 (15:56→22:00)
[2021-03-11] MEDS: dilTIAZem 25 MG/5 ML Vial IV BOLUS (21:00)
--- NOTE | 2021-03-11 22:07 | DIALYSIS ---
Pt tolerated 2hr HD tx well. Net UF Even. See flow record for tx data.
[2021-03-11] MEDS: Potassium Chloride 10mEq/100mL 10 MEQ/100 ML IV.SOLN. 100 MEQ IV BOLUS (23:47)
[2021-03-12] VITALS (31 sets, daily range): BP systolic 85–148; BP diastolic 58–103; PULSE 64–155; RESP 12–28; TEMP 36.5–37.3; O2SAT 90–100
[2021-03-12] MEDS: Potassium Chloride 10mEq/100mL 10 MEQ/100 ML IV.SOLN. 100 MEQ IV BOLUS (01:30)
[2021-03-12] MEDS: dilTIAZem 25 MG/5 ML Vial IV BOLUS (02:54)
[2021-03-12 04:28] LABS: Hematocrit 30.1 % (37-47); Hemoglobin 9.7 g/dL (12.0-15.0); Mean Corp Hgb Conc 32.2 g/dL (32-36); Mean Corpuscular Hgb 27.2 pg (27.0-32.0); Mean Corpuscular Volume 84.6 fL (81-99); Mean Platelet Vol. 10.3 fl (6.2-12.0); POSITIVE COUNT YES; POSITIVE MORPHOLOGY YES; Platelet Count 264 K/mm3 (150-450); RBC Distribution Width CV 17.3 % (11.6-14.6); RBC Distribution Width SD 53.5 fl (35.1-43.9); Red Blood Count 3.56 M/mm3 (4.2-5.4); White Blood Count 5.6 K/mm3 (4.4-11.0)
[2021-03-12 04:30] LABS: Differential Indicated MANUAL DIFF
[2021-03-12 04:41] LABS: Anion Gap 7 (5-15); BUN 24 mg/dL (7-18); BUN/Creat Ratio 10.3 RATIO (10-20); Calcium,Total 7.8 mg/dL (8.5-10.1); Chloride 103 mmol/L (98-107); Creatinine, Serum 2.32 mg/dL (0.55-1.02); EST Glomerular Filtration Rate 22 mL/min (>60); Est Glom Filt Rate - Afr Amer 27 mL/min (>60); Estimated Creatinine Clearance 23.58 ml/min; Glucose 90 mg/dL (74-106); Potassium 3.5 mmol/L (3.5-5.1); Sodium Level 137 mmol/L (136-145)
[2021-03-12 04:52] LABS: Lymphocyte 20 % (19-41); Myelocyte 2 % (0-0); Neutrophil-Band 1 % (0-5); Neutrophil-Segmented 71 % (47-70); Total Cells Counted 100 (MANUAL DIFF)
[2021-03-12 04:53] LABS: Monocyte 6 % (0-10); Nucleated Red Bld Cells,Manual 1 % (0-5); Platelet Estimate ADEQUATE (ADEQ); Red Cell Morphology NORM C+C NORMAL (NORM C&C)
[2021-03-12 04:54] LABS: Absolute Lymphocyte Count 1.13 X10^3/uL (0.83-4.51); Absolute Neutrophil Count 4.1 X10^3/uL (2.0-7.7); Lymphocyte # 1.13 X10^3/ul (0.83-4.51); Neutrophil # 4.06 X10^3/uL (2.7-7.7)
[2021-03-12 04:58] LABS: Magnesium 1.4 mg/dL (1.6-2.6); Phosphorus 2.4 mg/dL (2.5-4.9)
[2021-03-12] MEDS: Propofol 10MG/Ml 1,000 MG/100 ML Bottle 5.5 MG CONT INF (05:15)
[2021-03-12] MEDS: Magnesium Sulfate 4gm/100mL 4 GM/100 ML IV.SOLN. IV (05:45)
--- NOTE | 2021-03-12 06:25 | EKG12_ITS ---
Test Reason : RYTHMN CHANGE Blood Pressure : / mmHG Vent. Rate : 087 BPM Atrial Rate : 087 BPM P-R Int : 132 ms QRS Dur : 074 ms QT Int : 386 ms P-R-T Axes : -11 -09 023 degrees QTc Int : 464 ms Normal sinus rhythm Normal ECG When compared with ECG of 11-MAR-2021 04:53, MANUAL COMPARISON REQUIRED, DATA IS UNCONFIRMED Confirmed by RUSSELL BO, ARAVIND ([id number]), supervising editor news reel ALLEY JAIN ([id number]) on 03/16/2021 11:15:14 AM Referred By: DARI Confirmed By:ARAVIND WELLS MD
[2021-03-12 07:36] LABS: Allen Test Positive; Base Excess 1 mmol/L (-2 to +2); Bicarbonate 23.3 mmol/L (22-26); Blood Gas Specimen Type ART; FI02 21; Mode CPAP/PS; O2 Delivery Device Adult Vent; PEEP 5; PO2 48 mmHG (75-100); PS 5; SITE L Radial; SO2 89 % (95-99); Total Carbon Dioxide 24 mmol/L; pCO2 26.7 mmHg (35-45); pH 7.55 (7.35-7.45)
--- NOTE | 2021-03-12 07:40 | PCM.PN.INT ---
Assessment & Plan Assessment/Plan (1) Pneumonia due to COVID-19 virus: (2) UTI (urinary tract infection): QUALIFIERS: Urinary tract infection type: acute cystitis Hematuria presence: without hematuria Qualified Code(s): N30.00 - Acute cystitis without hematuria (3) Acute kidney injury: PLAN: RECOMMENDATIONS: 1. Await transfer to tertiary neuro intensive care unit 2. Await nephrology recommendations on dialysis 3. Okay to extubate patient to nasal cannula 4. Monitor mentation for possible extubation 5. No baricitinib or Remdesivir given renal status 6. Agree with empiric MDRO antibiotics given recent hospitalization. Cultures pending 7. Await cardiology recommendations on therapy 8. Continue Decadron to complete 10 days (03/17/2021) IMPRESSIONS: 1. Acute on chronic kidney disease stage IV with previous stent Patient's urinalysis shows significant pyuria without bacteria and worsening creatinine. Patient may have a postobstructive component. Renal ultrasound was relatively unremarkable. Uremia may be added to myoclonic jerking and patient does have hyperkalemia. Do agree with broadening antibiotics given patient's recent hospitalization/antibiotics and foreign body. Sputum is growing yeast from sputum, but given patient is edentulous and not neutropenic this could be concerning. This has been sent for further testing. We will hold on antifungals unless patient develops fever or leukocytosis. Await nephrology recommendations 2. Acute hypoxic respiratory failure secondary to status epilepticus in the setting of COVID-19 Patient is requiring supplemental oxygen to maintain saturations. Patient has tested positive for COVID-19. IV fluids will be discontinued. Patient is oxygenating well despite COVID-19. Patient is on Decadron. Patient is not a candidate for Remdesivir or baricitinib because of poor creatinine clearance. Vaccination status is unclear at this time. Patient's mental status appears to be improved. Will extubate and monitor clinically in the intensive care unit. 3. Encephalopathy secondary to status epilepticus Patient reportedly has a history of tics but currently is having significant myoclonic activity. Patient is much more appropriate at this time on Keppra. No myoclonic jerking is noted. This would be consistent with possible status epilepticus earlier in the hospitalization. EEG was negative, but had multiple artifacts. Still waiting for a bed at [facility]. 4. Morbid obesity/poor history/repeated hospitalizations/anemia Complicates care, management, recovery and prognosis. Can attempt a bedside swallow later today. 5. Junctional bradycardia with new onset A. fib RVR Cardiology currently consulted. Patient appears to be in normal sinus rhythm at this time. Patient has had a couple junctional rhythms noted with bradycardia. Await cardiology recommendations. TIME: 36 minutes critical care time spent addressing patient's acute kidney injury, respiratory failure, COVID-19, myoclonic jerking, review of all data and collaboration with care team. Subjective Subjective Patient did okay overnight. Patient was in A. fib with RVR for most of the evening. Patient did receive intermittent Cardizem by cardiology and hospitalist. No seizure activity was noted. Patient did tolerate hemodialysis. No fevers were noted and patient was able to tolerate minimal FiO2, so a spontaneous breathing trial was obtained this morning. Objective Data Objective Data Vital Signs: Vital Signs Temp Pulse Resp BP Pulse Ox 36.5 C L 97 22 H 112/78 91 03/12/21 07:00 03/12/21 07:00 03/12/21 07:00 03/12/21 07:00 03/12/21 07:00 Oxygen Flow Rate (L/min) 2 Oxygen Delivery Method Mechanical Ventilator Weight: 99.1 kg Body Mass Index (BMI) 29.9 Intake & Output: Intake and Output for Last 24 Hours 03/10/21 03/11/21 03/12/21 23:59 23:59 23:59 Intake Total 2054.70 / 2075.90 1912.42 / 1920.42 307.22 / 307.22 Output Total 320 / 320 690 / 990 525 / 525 Balance 1734.70 / 1755.90 1222.42 / 930.42 -217.78 / -217.78 Lab / Micro Data Result Diagrams: 03/12/21 04:00 03/12/21 04:00 Labs: Laboratory Results - last 24 hr 03/11/21 10:47: POC Glucose 110 03/12/21 04:00: WBC 5.6, RBC 3.56 L, Hgb 9.7 L, Hct 30.1 L, MCV 84.6, MCH 27.2, MCHC 32.2, RDW Std Deviation 53.5 H, RDW Coeff of Issac 17.3 H, Plt Count 264, MPV 10.3, Neut % (Auto) Not Reportable, Absolute Neuts (auto) 4.1, Absolute Lymphs (auto) 1.13, Total Counted 100, Neutrophils % (Manual) 71 H, Band Neutrophils % 1, Lymphocytes % (Manual) 20, Monocytes % (Manual) 6, Myelocytes % 2 H, Nucleated RBCs/100 WBC 1, Diff Path Review June, Platelet Estimate ADEQUATE, RBC Morphology NORM C+C 03/12/21 04:00: Sodium 137, Potassium 3.5, Chloride 103, Carbon Dioxide 27.0, Anion Gap 7, BUN 24 H, Creatinine 2.32 H, Estim Creat Clear Calc 23.58, Est GFR (MDRD) Af Amer 27 L, Est GFR (MDRD) Non-Af 22 L, BUN/Creatinine Ratio 10.3, Glucose 90, Calcium 7.8 L 03/12/21 04:00: Phosphorus 2.4 L, Magnesium 1.4 L Micro: Microbiology 03/09/21 19:50 Sputum, Induced/Lukens Gram Stain - Final 03/09/21 19:50 Sputum, Induced/Lukens Respiratory Culture - Final Yeast, not Radha albicans 03/08/21 21:18 Blood Culture (Wb) - Anticubital Right Blood Culture - Preliminary No growth in 48 hours. 03/08/21 20:40 Blood Culture (Wb) - Anticubital Right Blood Culture - Preliminary No growth in 48 hours. 03/08/21 20:00 Urine Catheter - Catheter Urine Culture - Final Culture exhibits no growth. 03/08/21 21:14 Nasal Secretion SARS-CoV-2 Antigen (Rapid) - Final SARS-CoV-2 (COVID 19) ABG Data ABG results: ABG 03/12/21 07:23 Specimen Type ART Sample Site L Radial pH 7.55 H Bicarbonate Actual 23.3 Total CO2 24 Base Excess 1 O2 Saturation 89 L O2 % 21 ABG pCO2 26.7 L ABG pO2 48 L Kamran Test Positive O2 Delivery Device Adult Vent Vent Mode CPAP/PS POC PEEP 5 POC Pressure Suppt 5 Radiography Diagnostic Testing: Radiology Impression Echocardiogram 03/10/21 19:30 Interpretation Summary Normal LV size. Left ventricular systolic function is normal. The estimated ejection fraction is 53 %. The left atrium is mildly enlarged. The study was technically limited. Ordering Physician: Jamal Lowery Referring Physician: GREY MERRITT Performed By: Mel Busch RDCS, RVT Physical Exam Const Constitutional Narrative: No myoclonus noted. Tracks appropriately. Not following all commands. General Appearance: intubated and patient mechanically ventilated Nutritional Appearance: morbidly obese HEENT normocephalic and moist oral mucous membranes HEENT Narrative: Mallampati 4 Mouth: endotracheal tube in place and OG tube in place Eyes PERRL, EOMs intact bilaterally, conjunctivae normal and no scleral icterus Neck full ROM Chest inspection of chest normal Chest: symmetrical chest wall rise; Negative for crepitus Resp normal respiratory effort Effort and Inspection: Negative for actively coughing Auscultation: Negative for rales, rhonchi or wheezes Cardio regular rate, regular rhythm, S1 normal heart sound, S2 normal heart sound, no murmurs, no rub and no gallops GI normal to inspection, nondistended, normoactive bowel sounds Extremity General Extremity: edema bilateral (2+) lower extremity; Negative for clubbing Skin no rashes or lesions noted Neuro Neuro Narrative: Nonvocal. No myoclonic jerking noted and tracks appropriately. No attempts to speak Psych Mood & Affect: flat affect Charges/Coding Procedures Hospitalists Procedures: [id number] [facility]
--- NOTE | 2021-03-12 08:18 | PN.CARD_ITS ---
Objective Data Vital Signs: Vital Signs Temp Pulse Resp BP Pulse Ox 97.7 F L 97 22 H 112/78 91 03/12/21 07:00 03/12/21 07:00 03/12/21 07:00 03/12/21 07:00 03/12/21 07:00 Oxygen Flow Rate (L/min) 2 Oxygen Delivery Method Mechanical Ventilator Weight: 218 lb 7.649 oz Body Mass Index (BMI) 29.9 Intake & Output: Intake and Output for Last 24 Hours 03/10/21 03/11/21 03/12/21 23:59 23:59 23:59 Intake Total 2054.70 / 2075.90 1912.42 / 1920.42 307.22 / 307.22 Output Total 320 / 320 690 / 990 525 / 525 Balance 1734.70 / 1755.90 1222.42 / 930.42 -217.78 / -217.78 Lab / Micro Data Result Diagrams: 03/12/21 04:00 03/12/21 04:00 Labs: Laboratory Results - last 24 hr 03/11/21 10:47: POC Glucose 110 03/12/21 04:00: WBC 5.6, RBC 3.56 L, Hgb 9.7 L, Hct 30.1 L, MCV 84.6, MCH 27.2, MCHC 32.2, RDW Std Deviation 53.5 H, RDW Coeff of Issac 17.3 H, Plt Count 264, MPV 10.3, Neut % (Auto) Not Reportable, Absolute Neuts (auto) 4.1, Absolute Lymphs (auto) 1.13, Total Counted 100, Neutrophils % (Manual) 71 H, Band Neutrophils % 1, Lymphocytes % (Manual) 20, Monocytes % (Manual) 6, Myelocytes % 2 H, Nucleated RBCs/100 WBC 1, Diff Path Review June, Platelet Estimate ADEQUATE, RBC Morphology NORM C+C 03/12/21 04:00: Sodium 137, Potassium 3.5, Chloride 103, Carbon Dioxide 27.0, Anion Gap 7, BUN 24 H, Creatinine 2.32 H, Estim Creat Clear Calc 23.58, Est GFR (MDRD) Af Amer 27 L, Est GFR (MDRD) Non-Af 22 L, BUN/Creatinine Ratio 10.3, Glucose 90, Calcium 7.8 L 03/12/21 04:00: Phosphorus 2.4 L, Magnesium 1.4 L Micro: Microbiology 03/09/21 19:50 Sputum, Induced/Lukens Gram Stain - Final 03/09/21 19:50 Sputum, Induced/Lukens Respiratory Culture - Preliminary Yeast, not Radha albicans 03/08/21 21:18 Blood Culture (Wb) - Anticubital Right Blood Culture - Preliminary No growth in 48 hours. 03/08/21 20:40 Blood Culture (Wb) - Anticubital Right Blood Culture - Preliminary No growth in 48 hours. 03/08/21 20:00 Urine Catheter - Catheter Urine Culture - Final Culture exhibits no growth. ABG Data ABG results: ABG 03/12/21 07:23 Specimen Type ART Sample Site L Radial pH 7.55 H Bicarbonate Actual 23.3 Total CO2 24 Base Excess 1 O2 Saturation 89 L O2 % 21 ABG pCO2 26.7 L ABG pO2 48 L Kamran Test Positive O2 Delivery Device Adult Vent Vent Mode CPAP/PS POC PEEP 5 POC Pressure Suppt 5 Cardiology Labs/Tests 03/12/21 04:00: WBC 5.6, RBC 3.56 L, Hgb 9.7 L, Hct 30.1 L, MCV 84.6, MCH 27.2, MCHC 32.2, Plt Count 264, MPV 10.3, Neut % (Auto) Not Reportable, Absolute Neuts (auto) 4.1, Total Counted 100, Neutrophils % (Manual) 71 H, Band Neutrophils % 1, Lymphocytes % (Manual) 20, Monocytes % (Manual) 6, Myelocytes % 2 H 03/12/21 04:00: Sodium 137, Potassium 3.5, Chloride 103, Carbon Dioxide 27.0, Anion Gap 7, BUN 24 H, Creatinine 2.32 H, Est GFR (MDRD) Af Amer 27 L, Est GFR (MDRD) Non-Af 22 L, BUN/Creatinine Ratio 10.3, Glucose 90, Calcium 7.8 L 03/12/21 04:00: Phosphorus 2.4 L, Magnesium 1.4 L 03/12/21 07:23: pH 7.55 H, Bicarbonate Actual 23.3, Base Excess 1, O2 Saturation 89 L, ABG pCO2 26.7 L, ABG pO2 48 L, Kamran Test Positive Rhythm: EKG: ECHO: Stress Test: Cardiac Cath: PCI: CT Surgery: Holter monitor: EPS: PPM: CXR: Chest CT Scan: Radiography Diagnostic Testing: Radiology Impression Echocardiogram 03/10/21 19:30 Interpretation Summary Normal LV size. Left ventricular systolic function is normal. The estimated ejection fraction is 53 %. The left atrium is mildly enlarged. The study was technically limited. Ordering Physician: Jamal Lowery Referring Physician: GREY MERRITT Performed By: Mel Busch RDCS, RVT Physical Exam Const alert, oriented x3 and no apparent distress General Appearance: cooperative HEENT hearing grossly normal bilaterally Head and Scalp: atraumatic Eyes EOMs intact bilaterally Neck General: normal visual inspection Chest inspection of chest normal and palpation of chest normal Resp normal respiratory effort Auscultation: clear to auscultation bilaterally Cardio regular rate, regular rhythm, S1 normal heart sound and S2 normal heart sound Jugular Venous Distention: JVD GI normal to inspection, nondistended, normoactive bowel sounds Extremity normal capillary refill and no pedal edema Peripheral Pulses: Yes pulses 2+ throughout and femoral pulses present Skin no rashes or lesions noted Neuro oriented x3 and CN's II-XII intact bilaterally Psych Appearance: grossly normal and appropriate Assessment & Plan Assessment/Plan (1) Bradycardia: PLAN: The patient is noted to be bradycardic though the etiology is not entirely clear at this particular time. She did have an episode yesterday when she went into atrial fibrillation and during dialysis she had a 12 beat run of nonsustained ventricular tachyarrhythmia. She was given a dose of IV Cardizem. This morning she converted to sinus rhythm. She has been extubated. We will try and keep her electrolytes with her potassium close to 4. Magnesium was 2.1. Echocardiogram demonstrated borderline ejection fraction of 50%. We will continue current supportive management. Thank you for allowing me to participate in the care of your patient. Please don't hesitate to call if any issues arise.
[2021-03-12] MEDS: Linezolid 600 MG 600 MG/300 ML BAG 200 MG IV ×2 (10:45→22:03)
[2021-03-12] MEDS: CHLORHEXIDINE GLUC 2% CLOTH 1 EACH TOWELETTE TOPICAL (11:13)
[2021-03-12] MEDS: dexAMETHasone 10 MG/ML Vial 6 MG IV (11:13)
[2021-03-12] MEDS: Ammonium Lactate 225 gm Bottle 1 APPLIC TOPICAL ×2 (11:13→23:07)
[2021-03-12] MEDS: Piperacil/Tazobactam 3.375 GM/50 ML ML IV ×2 (12:00→22:03)
--- NOTE | 2021-03-12 12:26 | PCM.PN.HOSP ---
Subjective Subjective Extubated today. Pt more alert. Denies complaints. Objective Data Objective Data Vital Signs: Vital Signs Temp Pulse Resp BP Pulse Ox 36.9 C 73 24 H 114/67 96 03/12/21 08:00 03/12/21 11:50 03/12/21 11:00 03/12/21 11:00 03/12/21 11:00 Oxygen Flow Rate (L/min) 1 Oxygen Delivery Method Nasal Cannula Weight: 99.1 kg Body Mass Index (BMI) 29.9 Intake & Output: Intake and Output for Last 24 Hours 03/10/21 03/11/21 03/12/21 23:59 23:59 23:59 Intake Total 2054.70 / 2075.90 1912.42 / 1920.42 622.22 / 622.22 Output Total 320 / 320 690 / 990 525 / 525 Balance 1734.70 / 1755.90 1222.42 / 930.42 97.22 / 97.22 Lab / Micro Data Result Diagrams: 03/12/21 04:00 03/12/21 04:00 Labs: Laboratory Results - last 24 hr 03/12/21 04:00: WBC 5.6, RBC 3.56 L, Hgb 9.7 L, Hct 30.1 L, MCV 84.6, MCH 27.2, MCHC 32.2, RDW Std Deviation 53.5 H, RDW Coeff of Issac 17.3 H, Plt Count 264, MPV 10.3, Neut % (Auto) Not Reportable, Absolute Neuts (auto) 4.1, Absolute Lymphs (auto) 1.13, Total Counted 100, Neutrophils % (Manual) 71 H, Band Neutrophils % 1, Lymphocytes % (Manual) 20, Monocytes % (Manual) 6, Myelocytes % 2 H, Nucleated RBCs/100 WBC 1, Diff Path Review June, Platelet Estimate ADEQUATE, RBC Morphology NORM C+C 03/12/21 04:00: Sodium 137, Potassium 3.5, Chloride 103, Carbon Dioxide 27.0, Anion Gap 7, BUN 24 H, Creatinine 2.32 H, Estim Creat Clear Calc 23.58, Est GFR (MDRD) Af Amer 27 L, Est GFR (MDRD) Non-Af 22 L, BUN/Creatinine Ratio 10.3, Glucose 90, Calcium 7.8 L 03/12/21 04:00: Phosphorus 2.4 L, Magnesium 1.4 L Micro: Microbiology 03/09/21 19:50 Sputum, Induced/Lukens Gram Stain - Final 03/09/21 19:50 Sputum, Induced/Lukens Respiratory Culture - Preliminary Yeast, not Radha albicans 03/08/21 21:18 Blood Culture (Wb) - Anticubital Right Blood Culture - Preliminary No growth in 48 hours. 03/08/21 20:40 Blood Culture (Wb) - Anticubital Right Blood Culture - Preliminary No growth in 48 hours. 03/08/21 20:00 Urine Catheter - Catheter Urine Culture - Final Culture exhibits no growth. 03/08/21 21:14 Nasal Secretion SARS-CoV-2 Antigen (Rapid) - Final SARS-CoV-2 (COVID 19) ABG Data ABG results: ABG 03/12/21 07:23 Specimen Type ART Sample Site L Radial pH 7.55 H Bicarbonate Actual 23.3 Total CO2 24 Base Excess 1 O2 Saturation 89 L O2 % 21 ABG pCO2 26.7 L ABG pO2 48 L Kamran Test Positive O2 Delivery Device Adult Vent Vent Mode CPAP/PS POC PEEP 5 POC Pressure Suppt 5 Physical Exam Const alert and no apparent distress Constitutional Narrative: No eye contact. Looking over to her left. Able to answer questions appropriately but weak voice. HEENT Head and Scalp: normocephalic Resp Resp Narrative: Coarse breath sounds bilaterally Cardio regular rate, regular rhythm and S1 normal heart sound GI normal to inspection, nondistended, normoactive bowel sounds, soft to palpation, non-tender and non-distended Extremity normal to inspection Neuro Sensorium / Orientation: awake and alert Psych Psych Narrative: Flat affect Assessment & Plan Assessment/Plan (1) Acute kidney injury: (2) Pneumonia due to COVID-19 virus: (3) UTI (urinary tract infection): QUALIFIERS: Urinary tract infection type: acute cystitis Hematuria presence: without hematuria Qualified Code(s): N30.00 - Acute cystitis without hematuria (4) Sepsis: QUALIFIERS: Sepsis type: sepsis due to unspecified organism Sepsis acute organ dysfunction status: with acute organ dysfunction Severe sepsis acute organ dysfunction type: acute renal failure Acute renal failure type: unspecified Severe sepsis shock status: without septic shock Qualified Code(s): A41.9 - Sepsis, unspecified organism; R65.20 - Severe sepsis without septic shock; N17.9 - Acute kidney failure, unspecified (5) Myoclonus: (6) Status epilepticus: (7) Acute respiratory failure, unspecified whether with hypoxia or hypercapnia: QUALIFIERS: Respiratory failure complication: hypoxia and hypercapnia Qualified Code(s): J96.01 - Acute respiratory failure with hypoxia; J96.02 - Acute respiratory failure with hypercapnia PLAN: 1. WHITLEY Oliguric Post obstructive v ATN nephrology on consult avoid nephrotoxic agents renal US showed non-obstructive right renal parenchymal stones started HD on 03/10/21 2. COVID 19 + on the , quarantine through the unclear when Sx began on dexamethasone no remdesivir nor baricitinib given WHITLEY 3. Sepsis POA qSOFA score of 2 2/2 UTI, COVID 19 +/- bacterial pneumonia f/u Cx on pip/tazo. Consider DC linezolid 4. UTI recently had a Proteus UTI on Pip/tazo started on first 5. status epilepticus, suspected No seizure activity noted at this time. Myoclonus is since resolved on levetiracetam EEG inconclusive due to artifact from continuous movement. Noted that there is moderate generalized background slowing. accepted to [facility], awaiting on bed. Is unclear if patient does have myoclonus due to metabolic derangements and due to renal failure but also medications not being adequately excreted with her renal failure. Recommend brain MRI 6. Recent ureteral stone nephrostomy tube placed at [facility] Follow-up with urology as outpatient 7. VTE prophylaxis: change to SQ heparin 8. A. fib Patient had periods of bradycardia Cardiology following 9. Acute hypoxic and hypercapnic respiratory failure Extubated on March 12 Charges/Coding Visit Charges Inpatient E&M: 50261 Subs Hosp L3
[2021-03-12 12:32] LABS: Pathologist Review Reviewed
--- NOTE | 2021-03-12 13:03 | PCM.PN.REN ---
Subjective Subjective extubated this am. follows some commands as per staff Objective Data Objective Data Vital Signs: Vital Signs Temp Pulse Resp BP Pulse Ox 98.8 F 64 22 H 134/78 H 98 03/12/21 12:00 03/12/21 12:00 03/12/21 12:00 03/12/21 12:00 03/12/21 12:00 Oxygen Flow Rate (L/min) 3 Oxygen Delivery Method Nasal Cannula Weight: 99.1 kg Body Mass Index (BMI) 29.9 Intake & Output: Intake and Output for Last 24 Hours 03/10/21 03/11/21 03/12/21 23:59 23:59 23:59 Intake Total 2054.70 / 2075.90 1912.42 / 1920.42 622.22 / 622.22 Output Total 320 / 320 690 / 990 775 / 775 Balance 1734.70 / 1755.90 1222.42 / 930.42 -152.78 / -152.78 Lab / Micro Data Result Diagrams: 03/12/21 04:00 03/12/21 04:00 Labs: Laboratory Results - last 24 hr 03/12/21 04:00: WBC 5.6, RBC 3.56 L, Hgb 9.7 L, Hct 30.1 L, MCV 84.6, MCH 27.2, MCHC 32.2, RDW Std Deviation 53.5 H, RDW Coeff of Issac 17.3 H, Plt Count 264, MPV 10.3, Neut % (Auto) Not Reportable, Absolute Neuts (auto) 4.1, Absolute Lymphs (auto) 1.13, Total Counted 100, Neutrophils % (Manual) 71 H, Band Neutrophils % 1, Lymphocytes % (Manual) 20, Monocytes % (Manual) 6, Myelocytes % 2 H, Nucleated RBCs/100 WBC 1, Diff Path Review Reviewed, Platelet Estimate ADEQUATE, RBC Morphology NORM C+C 03/12/21 04:00: Sodium 137, Potassium 3.5, Chloride 103, Carbon Dioxide 27.0, Anion Gap 7, BUN 24 H, Creatinine 2.32 H, Estim Creat Clear Calc 23.58, Est GFR (MDRD) Af Amer 27 L, Est GFR (MDRD) Non-Af 22 L, BUN/Creatinine Ratio 10.3, Glucose 90, Calcium 7.8 L 03/12/21 04:00: Phosphorus 2.4 L, Magnesium 1.4 L Micro: Microbiology 03/09/21 19:50 Sputum, Induced/Lukens Gram Stain - Final 03/09/21 19:50 Sputum, Induced/Lukens Respiratory Culture - Preliminary Yeast, not Radha albicans 03/08/21 21:18 Blood Culture (Wb) - Anticubital Right Blood Culture - Preliminary No growth in 48 hours. 03/08/21 20:40 Blood Culture (Wb) - Anticubital Right Blood Culture - Preliminary No growth in 48 hours. 03/08/21 20:00 Urine Catheter - Catheter Urine Culture - Final Culture exhibits no growth. 03/08/21 21:14 Nasal Secretion SARS-CoV-2 Antigen (Rapid) - Final SARS-CoV-2 (COVID 19) ABG Data ABG results: ABG 03/12/21 07:23 Specimen Type ART Sample Site L Radial pH 7.55 H Bicarbonate Actual 23.3 Total CO2 24 Base Excess 1 O2 Saturation 89 L O2 % 21 ABG pCO2 26.7 L ABG pO2 48 L Kamran Test Positive O2 Delivery Device Adult Vent Vent Mode CPAP/PS POC PEEP 5 POC Pressure Suppt 5 Physical Exam Narrative extubated opens eyes to commands heller Assessment & Plan Assessment/Plan (1) Acute kidney injury: PLAN: Baseline creatinine prior to last admit was 1.8. At the time of discharge her creatinine was around 2.2-2.4. creatinine was slowly increasing at the long term. Suspected seizures. Renal ultrasound without any hydronephrosis. HD 2 sessions now. clinically better. mental status improved. extubated. likely HD tomorrow will dw ICU attending (2) Myoclonus: (3) Chronic kidney disease, stage 3b:
[2021-03-13] VITALS (18 sets, daily range): BP systolic 122–150; BP diastolic 67–100; PULSE 69–93; RESP 16–22; TEMP 36.5–37.4; O2SAT 90–95
[2021-03-13 04:33] LABS: Hematocrit 28.5 % (37-47); Hemoglobin 9.3 g/dL (12.0-15.0); Mean Corp Hgb Conc 32.6 g/dL (32-36); Mean Corpuscular Hgb 27.8 pg (27.0-32.0); Mean Corpuscular Volume 85.1 fL (81-99); Mean Platelet Vol. 9.3 fl (6.2-12.0); POSITIVE COUNT YES; POSITIVE MORPHOLOGY YES; Platelet Count 218 K/mm3 (150-450); RBC Distribution Width CV 17.3 % (11.6-14.6); RBC Distribution Width SD 53.9 fl (35.1-43.9); Red Blood Count 3.35 M/mm3 (4.2-5.4); White Blood Count 5.8 K/mm3 (4.4-11.0)
[2021-03-13 04:43] LABS: Differential Indicated MANUAL DIFF
[2021-03-13 04:54] LABS: Anion Gap 9 (5-15); BUN 28 mg/dL (7-18); BUN/Creat Ratio 9.9 RATIO (10-20); Chloride 106 mmol/L (98-107); Creatinine, Serum 2.83 mg/dL (0.55-1.02); EST Glomerular Filtration Rate 18 mL/min (>60); Est Glom Filt Rate - Afr Amer 21 mL/min (>60); Estimated Creatinine Clearance 19.33 ml/min; Glucose 150 mg/dL (74-106); Potassium 3.3 mmol/L (3.5-5.1); Sodium Level 140 mmol/L (136-145)
[2021-03-13 05:02] LABS: Total Cells Counted 100 (MANUAL DIFF)
[2021-03-13 05:05] LABS: Atypical Lymphocyte 1+ %; Lymphocyte 14 % (19-41); Metamyelocyte 1 % (0-1); Monocyte 8 % (0-10); Myelocyte 3 % (0-0); Neutrophil-Band 1 % (0-5); Neutrophil-Segmented 73 % (47-70); Platelet Estimate ADEQUATE (ADEQ)
[2021-03-13 05:06] LABS: Nucleated Red Bld Cells,Manual 2 % (0-5)
[2021-03-13 05:07] LABS: Red Cell Morphology NORM C+C NORMAL (NORM C&C)
[2021-03-13 05:10] LABS: Absolute Lymphocyte Count 0.81 X10^3/uL (0.83-4.51); Absolute Neutrophil Count 4.3 X10^3/uL (2.0-7.7); Lymphocyte # 0.81 X10^3/ul (0.83-4.51); Neutrophil # 4.28 X10^3/uL (2.7-7.7)
[2021-03-13] MEDS: CHLORHEXIDINE GLUC 2% CLOTH 1 EACH TOWELETTE TOPICAL (05:58)
--- NOTE | 2021-03-13 06:41 | PN.CC_ITS ---
Assessment & Plan Assessment/Plan (1) Pneumonia due to COVID-19 virus: (2) UTI (urinary tract infection): QUALIFIERS: Urinary tract infection type: acute cystitis Hematuri a presence: without hematuria Qualified Code(s): N30.00 - Acute cystitis without hematuria (3) Acute kidney injury: PLAN: RECOMMENDATIONS: 1. Unclear if patient requires tertiary neuro intensive care unit at this time 2. Anticipate dialysis today per nephrology notes 3. Increase activity as tolerated 4. Monitor mentation for possible extubation 5. No baricitinib or Remdesivir given renal status 6. Likely okay to discontinue antibiotics from my perspective. Await fungal 7. Okay to transfer from the intensive care unit from my perspective 8. Continue Decadron to complete 10 days (03/17/2021) 9. Hemodynamically stable on room air. Will sign off from a critical care perspective IMPRESSIONS: 1. Acute on chronic kidney disease stage IV with previous stent Patient's urinalysis shows significant pyuria without bacteria and w orsening creatinine. Patient with no reported postobstructive component. Renal ultrasound was relatively unremarkable. Uremia may be added to myoclonic jerking, along with gabapentin. Do agree with broadening antibiotics given patient's recent hospitalization/antibiotics and foreign body. Sputum is growing yeast from sputum, but given patient is edentulous and not neutropenic this could be concerning. This has been sent for further testing. We will hold on antifungals unless patient develops fever or leukocytosis. Await nephrology recommendations 2. Acute hypoxic respiratory failure secondary to status epilepticus in the setting of COVID-19 Patient is requiring supplemental oxygen to maintain saturations. Patient has tested positive for COVID-19. IV fluids will be discontinued. Patient is oxygenating well despite COVID-19. Patient is on Decadron. Patient is not a candidate for Remdesivir or baricitinib because of poor creatinine clearance. Vaccination status is unclear at this time. Patient's mental status appears to be improved. Patient is tolerating room air well. Will sign off from a critical care perspective 3. Encephalopathy secondary to status epilepticus Continues to improve. Patient reportedly has a history of tics but currently is having significant myoclonic activity. Patient is much more a ppropriate at this time on Keppra. No myoclonic jerking is noted. This would be consistent with possible status epilepticus earlier in the hospitalization. EEG was negative, but had multiple artifacts. No further seizure activity has been noted. Patient would benefit from evaluation by neurology, but it is likely not necessary to transfer her neuro intensive care 4. Morbid obesity/poor history/repeated hospitalizations/anemia Complicates care, management, recovery and prognosis. Can attempt a bedside swallow later today. 5. Junctional bradycardia with new onset A. fib RVR Cardiology currently consulted. Patient appears to be in normal sinus rhythm at this time. Patient has had a couple junctional rhythms noted with bradycardia. Await cardiology recommendations. Subjective Subjective Patient did well overnight. Patient did have a bowel movement per nursing. No seizure activity was noted. Patient is profoundly weak, but more conversational today. Patient is not reporting any pain, nausea or vomiting. Objective Data Objective Data Vital Signs: Vital Signs Temp Pulse Resp BP Pulse Ox 37.4 C H 91 22 H 141/72 H 91 03/13/21 06:00 03/13/21 06:00 03/13/21 06:00 03/13/21 06:00 03/13/21 06:00 Oxygen Flow Rate (L/min) 1 Oxygen Delivery Method Room Air Weight: 96.6 kg Body Mass Index (BMI) 29.9 Intake & Output: Intake and Output for Last 24 Hours 03/11/21 03/12/21 03/13/21 23:59 23:59 23:59 Intake Total 1912.42 / 1920.42 1447.22 / 1447.22 350 / 350 Output Total 690 / 990 1325 / 1325 1400 / 1400 Balance 1222.42 / 930.42 122.22 / 122.22 -1050 / -1050 Lab / Micro Data Result Diagrams: 03/13/21 04:20 03/13/21 04:20 Labs: Laboratory Results - last 24 hr 03/12/21 04:00: Diff Path Review Reviewed 03/13/21 04:20: Sodium 140, Potassium 3.3 L, Chloride 106, Carbon Dioxide 25.0, Anion Gap 9, BUN 28 H, Creatinine 2.83 H, Estim Creat Clear Calc 19.33, Est GFR (MDRD) Af Amer 21 L, Est GFR (MDRD) Non-Af 18 L, BUN/Creatinine Ratio 9.9 L, Glucose 150 H, Calcium 8.0 L 03/13/21 04:20: WBC 5.8, RBC 3.35 L, Hgb 9.3 L, Hct 28.5 L, MCV 85.1, MCH 27.8, MCHC 32.6, RDW Std Deviation 53.9 H, RDW Coeff of Issac 17.3 H, Plt Count 218, MPV 9.3, Neut % (Auto) Not Reportable, Absolute Neuts (auto) 4.3, Absolute Lymphs (auto) 0.81 L, Total Counted 100, Neutrophils % (Manual) 73 H, Band Neutrophils % 1, Lymphocytes % (Manual) 14 L, Monocytes % (Manual) 8, Metamyelocytes % 1, Myelocytes % 3 H, Nucleated RBCs/100 WBC 2, Diff Path Review May foll, Atypical Lymphocytes 1+, Platelet Estimate ADEQUATE, RBC Morphology NORM C+C Micro: Microbiology 03/09/21 19:50 Sputum, Induced/Lukens Gram Stain - Final 03/09/21 19:50 Sputum, Induced/Lukens Respiratory Culture - Preliminary Yeast, not Radha albicans 03/08/21 21:18 Blood Culture (Wb) - Anticubital Right Blood Culture - Preliminary No growth in 48 hours. 03/08/21 20:40 Blood Culture (Wb) - Anticubital Right Blood Culture - Preliminary No growth in 48 hours. 03/08/21 20:00 Urine Catheter - Catheter Urine Culture - Final Culture exhibits no growth. 03/08/21 21:14 Nasal Secretion SARS-CoV-2 Antigen (Rapid) - Final SARS-CoV-2 (COVID 19) ABG Data ABG results: ABG 03/12/21 07:23 Specimen Type ART Sample Site L Radial pH 7.55 H Bicarbonate Actual 23.3 Total CO2 24 Base Excess 1 O2 Saturation 89 L O2 % 21 ABG pCO2 26.7 L ABG pO2 48 L Kamran Test Positive O2 Delivery Device Adult Vent Vent Mode CPAP/PS POC PEEP 5 POC Pressure Suppt 5 Physical Exam Const alert and no apparent distress Constitutional Narrative: No myoclonus noted. Follows commands. More conversational today Orientation / Consciousness: oriented to person Nutritional Appearance: morbidly obese HEENT normocephalic and moist oral mucous membranes HEENT Narrative: Mallampati 4 Eyes PERRL, EOMs intact bilaterally, conjunctivae normal and no scleral icterus Neck full ROM Chest inspection of chest normal Chest: symmetrical chest wall rise; Negative for crepitus Resp normal respiratory effort Effort and Inspection: Negative for actively coughing Auscultation: Negative for rales, rhonchi or wheezes Cardio regular rate, regular rhythm, S1 normal heart sound, S2 normal heart sound, no murmurs, no rub and no gallops GI normal to inspection, nondistended, normoactive bowel sounds Extremity General Extremity: edema bilateral (2+) lower extremity; Negative for clubbing Skin no rashes or lesions noted Neuro Neuro Narrative: Global weakness noted. Nonfocal exam. No myoclonic jerking noted and tracks appropriately. No attempts to speak Psych Mood & Affect: flat affect Charges/Coding Visit Charges Inpatient E&M: 25658 Subs Hosp L2
--- NOTE | 2021-03-13 08:08 | PCM.PN.CARD ---
Subjective Subjective Patient evaluated Objective Data Vital Signs: Vital Signs Temp Pulse Resp BP Pulse Ox 99.4 F H 91 22 H 141/72 H 91 03/13/21 06:00 03/13/21 06:00 03/13/21 06:00 03/13/21 06:00 03/13/21 06:00 Oxygen Flow Rate (L/min) 1 Oxygen Delivery Method Room Air Weight: 212 lb 15.465 oz Body Mass Index (BMI) 29.9 Intake & Output: Intake and Output for Last 24 Hours 03/11/21 03/12/21 03/13/21 23:59 23:59 23:59 Intake Total 1912.42 / 1920.42 1447.22 / 1447.22 470 / 470 Output Total 690 / 990 1325 / 1325 1400 / 1400 Balance 1222.42 / 930.42 122.22 / 122.22 -930 / -930 Lab / Micro Data Result Diagrams: 03/13/21 04:20 03/13/21 04:20 Labs: Laboratory Results - last 24 hr 03/12/21 04:00: Diff Path Review Reviewed 03/13/21 04:20: Sodium 140, Potassium 3.3 L, Chloride 106, Carbon Dioxide 25.0, Anion Gap 9, BUN 28 H, Creatinine 2.83 H, Estim Creat Clear Calc 19.33, Est GFR (MDRD) Af Amer 21 L, Est GFR (MDRD) Non-Af 18 L, BUN/Creatinine Ratio 9.9 L, Glucose 150 H, Calcium 8.0 L 03/13/21 04:20: WBC 5.8, RBC 3.35 L, Hgb 9.3 L, Hct 28.5 L, MCV 85.1, MCH 27.8, MCHC 32.6, RDW Std Deviation 53.9 H, RDW Coeff of Issac 17.3 H, Plt Count 218, MPV 9.3, Neut % (Auto) Not Reportable, Absolute Neuts (auto) 4.3, Absolute Lymphs (auto) 0.81 L, Total Counted 100, Neutrophils % (Manual) 73 H, Band Neutrophils % 1, Lymphocytes % (Manual) 14 L, Monocytes % (Manual) 8, Metamyelocytes % 1, Myelocytes % 3 H, Nucleated RBCs/100 WBC 2, Diff Path Review May foll, Atypical Lymphocytes 1+, Platelet Estimate ADEQUATE, RBC Morphology NORM C+C Micro: Microbiology 03/09/21 19:50 Sputum, Induced/Lukens Gram Stain - Final 03/09/21 19:50 Sputum, Induced/Lukens Respiratory Culture - Preliminary Yeast, not Radha albicans Cardiology Labs/Tests 03/13/21 04:20: Sodium 140, Potassium 3.3 L, Chloride 106, Carbon Dioxide 25.0, Anion Gap 9, BUN 28 H, Creatinine 2.83 H, Est GFR (MDRD) Af Amer 21 L, Est GFR (MDRD) Non-Af 18 L, BUN/Creatinine Ratio 9.9 L, Glucose 150 H, Calcium 8.0 L 03/13/21 04:20: WBC 5.8, RBC 3.35 L, Hgb 9.3 L, Hct 28.5 L, MCV 85.1, MCH 27.8, MCHC 32.6, Plt Count 218, MPV 9.3, Neut % (Auto) Not Reportable, Absolute Neuts (auto) 4.3, Total Counted 100, Neutrophils % (Manual) 73 H, Band Neutrophils % 1, Lymphocytes % (Manual) 14 L, Monocytes % (Manual) 8, Metamyelocytes % 1, Myelocytes % 3 H Rhythm: EKG: ECHO: Low normal ejection fraction Stress Test: Cardiac Cath: PCI: CT Surgery: Holter monitor: EPS: PPM: CXR: Chest CT Scan: Physical Exam Const alert, oriented x3 and no apparent distress General Appearance: cooperative HEENT hearing grossly normal bilaterally Head and Scalp: atraumatic Eyes EOMs intact bilaterally Neck General: normal visual inspection Chest inspection of chest normal and palpation of chest normal Resp normal respiratory effort Auscultation: clear to auscultation bilaterally Cardio regular rate, regular rhythm, S1 normal heart sound and S2 normal heart sound Jugular Venous Distention: JVD GI normal to inspection, nondistended, normoactive bowel sounds Extremity normal capillary refill and no pedal edema Peripheral Pulses: Yes pulses 2+ throughout and femoral pulses present Skin no rashes or lesions noted Neuro oriented x3 and CN's II-XII intact bilaterally Psych Appearance: grossly normal and appropriate Assessment & Plan Assessment/Plan (1) Bradycardia: PLAN: The patient was noted to be bradycardic though the etiology is not entirely clear at this particular time. She did have an episode yesterday when she went into atrial fibrillation and during dialysis she had a 12 beat run of nonsustained ventricular tachyarrhythmia. She was given a dose of IV Cardizem. She converted to sinus rhythm. She has been extubated and plans have been made to transfer her to the progressive care unit. We will try and keep her electrolytes with her potassium close to 4. Magnesium was 2.1. Echocardiogram demonstrated borderline ejection fraction of 50%. We will continue current supportive management. Thank you for allowing me to participate in the care of your patient. Please don't hesitate to call if any issues arise. We will sign off at this time.
--- NOTE | 2021-03-13 12:13 | PN.HOSP_ITS ---
Subjective Subjective Feels well. On HD. Objective Data Objective Data Vital Signs: Vital Signs Temp Pulse Resp BP Pulse Ox 36.9 C 71 18 132/77 H 92 03/13/21 08:35 03/13/21 08:35 03/13/21 08:35 03/13/21 08:35 03/13/21 08:44 Oxygen Flow Rate (L/min) 1 Oxygen Delivery Method Room Air Weight: 96.6 kg Body Mass Index (BMI) 29.9 Intake & Output: Intake and Output for Last 24 Hours 03/11/21 03/12/21 03/13/21 23:59 23:59 23:59 Intake Total 1912.42 / 1920.42 1447.22 / 1447.22 470 / 470 Output Total 690 / 990 1325 / 1325 1400 / 1400 Balance 1222.42 / 930.42 122.22 / 122.22 -930 / -930 Lab / Micro Data Result Diagrams: 03/13/21 04:20 03/13/21 04:20 Labs: Laboratory Results - last 24 hr 03/12/21 04:00: Diff Path Review Reviewed 03/13/21 04:20: Sodium 140, Potassium 3.3 L, Chloride 106, Carbon Dioxide 25.0, Anion Gap 9, BUN 28 H, Creatinine 2.83 H, Estim Creat Clear Calc 19.33, Est GFR (MDRD) Af Amer 21 L, Est GFR (MDRD) Non-Af 18 L, BUN/Creatinine Ratio 9.9 L, Glucose 150 H, Calcium 8.0 L 03/13/21 04:20: WBC 5.8, RBC 3.35 L, Hgb 9.3 L, Hct 28.5 L, MCV 85.1, MCH 27.8, MCHC 32.6, RDW Std Deviation 53.9 H, RDW Coeff of Issac 17.3 H, Plt Count 218, MPV 9.3, Neut % (Auto) Not Reportable, Absolute Neuts (auto) 4.3, Absolute Lymphs (auto) 0.81 L, Total Counted 100, Neutrophils % (Manual) 73 H, Band Neutrophils % 1, Lymphocytes % (Manual) 14 L, Monocytes % (Manual) 8, Metamyelocytes % 1, Myelocytes % 3 H, Nucleated RBCs/100 WBC 2, Diff Path Review May foll, Atypical Lymphocytes 1+, Platelet Estimate ADEQUATE, RBC Morphology NORM C+C Micro: Microbiology 03/09/21 19:50 Sputum, Induced/Lukens Gram Stain - Final 03/09/21 19:50 Sputum, Induced/Lukens Respiratory Culture - Preliminary Yeast, not Radha albicans 03/08/21 21:18 Blood Culture (Wb) - Anticubital Right Blood Culture - Preliminary No growth in 48 hours. 03/08/21 20:40 Blood Culture (Wb) - Anticubital Right Blood Culture - Preliminary No growth in 48 hours. 03/08/21 20:00 Urine Catheter - Catheter Urine Culture - Final Culture exhibits no growth. 03/08/21 21:14 Nasal Secretion SARS-CoV-2 Antigen (Rapid) - Final SARS-CoV-2 (COVID 19) Physical Exam Const alert, oriented x3 and no apparent distress Constitutional Narrative: on HD Resp normal respiratory effort, no retractions, no use of accessory muscles and clear to auscultation bilaterally Cardio regular rate, regular rhythm, S1 normal heart sound and S2 normal heart sound GI normal to inspection, nondistended, normoactive bowel sounds, soft to palpation, non-tender and non-distended Skin Skin Narrative: scales andnormal skin on LE. Neuro Sensorium / Orientation: awake and alert Psych affect normal Assessment & Plan Assessment/Plan (1) Acute kidney injury: (2) Pneumonia due to COVID-19 virus: (3) UTI (urinary tract infection): QUALIFIERS: Urinary tract infection type: acute cystitis Hematuria presence: without hematuria Qualified Code(s): N30.00 - Acute cystitis without hematuria (4) Sepsis: QUALIFIERS: Sepsis type: sepsis due to unspecified organism Sepsis acute organ dysfunction status: with acute organ dysfunction Severe sepsis acute organ dysfunction type: acute renal failure Acute renal failure type: unspecified Severe sepsis shock status: without septic shock Qualified Code(s): A41.9 - Sepsis, unspecified organism; R65.20 - Severe sepsis without septic shock; N17.9 - Acute kidney failure, unspecified (5) Myoclonus: (6) Status epilepticus: (7) Acute respiratory failure, unspecified whether with hypoxia or hypercapnia: QUALIFIERS: Respiratory failure complication: hypoxia and hypercapnia Qualified Code(s): J96.01 - Acute respiratory failure with hypoxia; J96.02 - Acute respiratory failure with hypercapnia PLAN: 1. WHITLEY Oliguric Post obstructive v ATN nephrology on consult avoid nephrotoxic agents renal US showed non-obstructive right renal parenchymal stones started HD on 03/10/21 2. COVID 19 + on the , quarantine through the unclear when Sx began on dexamethasone no remdesivir nor baricitinib given WHITLEY 3. Sepsis POA qSOFA score of 2 2/2 UTI, COVID 19 +/- bacterial pneumonia f/u Cx on pip/tazo continue for 7 days DC linezolid 4. UTI recently had a Proteus UTI on Pip/tazo started on first UCx negative 5. status epilepticus, suspected No seizure activity noted at this time. No further Myoclonus is since resolved on levetiracetam EEG inconclusive due to artifact from continuous movement. Noted that there is moderate generalized background slowing. Cancel transfer to [facility] since pt clearly not in status epilepticus (unclear if she ever was) MRI brain. Recheck EEG. 6. Recent ureteral stone nephrostomy tube placed at [facility] Follow-up with urology as outpatient 7. VTE prophylaxis: change to SQ heparin 8. A. fib Patient had periods of bradycardia Cardiology following 9. Acute hypoxic and hypercapnic respiratory failure Extubated on March 12 Charges/Coding Visit Charges Inpatient E&M: 10386 Subs Hosp L3
[2021-03-13] MEDS: dexAMETHasone 10 MG/ML Vial 6 MG IV (13:31)
[2021-03-13] MEDS: 0.9% Saline Lock 10 ML Syringe IV (13:34)
[2021-03-13] MEDS: Ammonium Lactate 225 gm Bottle 1 APPLIC TOPICAL ×2 (13:57→20:49)
[2021-03-13] MEDS: Piperacil/Tazobactam 3.375 GM/50 ML ML IV ×2 (14:15→22:20)
[2021-03-14] VITALS (10 sets, daily range): BP systolic 149–157; BP diastolic 66–99; PULSE 36–77; RESP 16; TEMP 36.6–37.2; O2SAT 94–99
[2021-03-14 06:57] LABS: Hematocrit 26.2 % (37-47); Hemoglobin 8.7 g/dL (12.0-15.0); Mean Corp Hgb Conc 33.2 g/dL (32-36); Mean Corpuscular Hgb 27.2 pg (27.0-32.0); Mean Corpuscular Volume 81.9 fL (81-99); Mean Platelet Vol. 9.9 fl (6.2-12.0); POSITIVE COUNT YES; POSITIVE DIFFERENTIAL YES; POSITIVE MORPHOLOGY YES; Platelet Count 219 K/mm3 (150-450); RBC Distribution Width CV 16.9 % (11.6-14.6); RBC Distribution Width SD 50.3 fl (35.1-43.9); White Blood Count 3.3 K/mm3 (4.4-11.0)
[2021-03-14 06:58] LABS: Differential Indicated MANUAL DIFF
[2021-03-14 07:09] LABS: Anion Gap 10 (5-15); BUN 20 mg/dL (7-18); BUN/Creat Ratio 8.4 RATIO (10-20); Calcium,Total 8.5 mg/dL (8.5-10.1); Chloride 107 mmol/L (98-107); Creatinine, Serum 2.39 mg/dL (0.55-1.02); EST Glomerular Filtration Rate 21 mL/min (>60); Est Glom Filt Rate - Afr Amer 26 mL/min (>60); Estimated Creatinine Clearance 22.89 ml/min; Glucose 87 mg/dL (74-106); Potassium 3.5 mmol/L (3.5-5.1); Sodium Level 141 mmol/L (136-145)
[2021-03-14 07:16] LABS: Lymphocyte 24 % (19-41); Monocyte 13 % (0-10); Myelocyte 2 % (0-0); Neutrophil-Band 1 % (0-5); Neutrophil-Segmented 60 % (47-70); Total Cells Counted 100 (MANUAL DIFF)
[2021-03-14 07:17] LABS: Absolute Lymphocyte Count 0.78 X10^3/uL (0.83-4.51); Atypical Lymphocyte RARE %; Lymphocyte # 0.78 X10^3/ul (0.83-4.51); Neutrophil # 1.98 X10^3/uL (2.7-7.7); Platelet Estimate ADEQUATE (ADEQ); Red Cell Morphology NORM C+C NORMAL (NORM C&C)
[2021-03-14] MEDS: dexAMETHasone 10 MG/ML Vial 6 MG IV (08:20)
[2021-03-14] MEDS: Ammonium Lactate 225 gm Bottle 1 APPLIC TOPICAL ×2 (08:20→21:43)
--- NOTE | 2021-03-14 08:41 | MRI_ITS ---
We are attempting to reach an attending provider to discuss findings. An addendum with communication details will be sent when the communication is complete. STUDY: MRI BRAIN WITHOUT CONTRAST REASON FOR EXAM: Female, 70 years old. seizure TECHNIQUE: Standardized multiplanar fat and water weighted pulse sequences were obtained. COMPARISON: 03/08/2021 CT of the head FINDINGS: Examination is degraded by motion artifact. There is mild cerebral atrophy with widening of the extra-axial spaces and ventricular dilatation. There are a limited number of small white matter hyperintensities, distributed throughout the deep white matter tracts of the cerebral hemispheres, consistent with mild chronic white matter ischemic changes. There is a 3 mm restricted diffusion involving the right cerebellar hemisphere (diffusion image #10 series 8) with drop of signal on ADC map, consistent with acute lacunar type infarct. Normal bilateral basal ganglia. Normal thalami. There is no extra-axial fluid accumulation. Normal sella turcica, pituitary gland, infundibular stalk, optic chiasm and hypothalamus. Normal tectal plate and pineal gland. Normal midbrain, willem and medulla. Normal basal cisterns. Mild paranasal sinus disease. MRI/Brain without Contrast IMPRESSION: Acute lacunar type infarct of the right cerebellum. Electronically Signed: Trell Fatima MD at 11:47 EST ,
[2021-03-14] MEDS: Piperacil/Tazobactam 3.375 GM/50 ML ML IV ×2 (10:08→23:09)
--- NOTE | 2021-03-14 10:55 | PN.RENAL_ITS ---
Subjective Subjective Following for WHITLEY on CKD. There is no chest pain, shortness of breath at rest or nausea. Objective Data Objective Data Vital Signs: Vital Signs Temp Pulse Resp BP Pulse Ox 98.1 F 60 16 150/77 H 94 03/14/21 08:13 03/14/21 08:13 03/14/21 08:13 03/14/21 08:13 03/14/21 08:13 Oxygen Flow Rate (L/min) 1 Oxygen Delivery Method Room Air Weight: 94.2 kg Body Mass Index (BMI) 29.9 Intake & Output: Intake and Output for Last 24 Hours 03/12/21 03/13/21 03/14/21 23:59 23:59 23:59 Intake Total 1447.22 / 1447.22 950 / 950 160 / 160 Output Total 1325 / 1325 1974 / 1974 650 / 650 Balance 122.22 / 122.22 -1025 / -1025 -490 / -490 Lab / Micro Data Result Diagrams: 03/14/21 06:45 03/14/21 06:45 Labs: Laboratory Results - last 24 hr 03/14/21 06:45: WBC 3.3 L, RBC 3.20 L, Hgb 8.7 L, Hct 26.2 L, MCV 81.9, MCH 27.2, MCHC 33.2, RDW Std Deviation 50.3 H, RDW Coeff of Issac 16.9 H, Plt Count 219, MPV 9.9, Neut % (Auto) Not Reportable, Absolute Neuts (auto) 2.0, Absolute Lymphs (auto) 0.78 L, Total Counted 100, Neutrophils % (Manual) 60, Band Neutrophils % 1, Lymphocytes % (Manual) 24, Monocytes % (Manual) 13 H, Myelocytes % 2 H, Diff Path Review May foll, Atypical Lymphocytes RARE, Platelet Estimate ADEQUATE, RBC Morphology NORM C+C 03/14/21 06:45: Sodium 141, Potassium 3.5, Chloride 107, Carbon Dioxide 24.0, Anion Gap 10, BUN 20 H, Creatinine 2.39 H, Estim Creat Clear Calc 22.89, Est GFR (MDRD) Af Amer 26 L, Est GFR (MDRD) Non-Af 21 L, BUN/Creatinine Ratio 8.4 L, Glucose 87, Calcium 8.5 Micro: Microbiology 03/08/21 20:40 Blood Culture (Wb) - Anticubital Right Blood Culture - Final No growth in 5 days. 03/08/21 21:18 Blood Culture (Wb) - Anticubital Right Blood Culture - Final No growth in 5 days. 03/09/21 19:50 Sputum, Induced/Lukens Gram Stain - Final 03/09/21 19:50 Sputum, Induced/Lukens Respiratory Culture - Preliminary Yeast, not Radha albicans 03/08/21 20:00 Urine Catheter - Catheter Urine Culture - Final Culture exhibits no growth. 03/08/21 21:14 Nasal Secretion SARS-CoV-2 Antigen (Rapid) - Final SARS-CoV-2 (COVID 19) Physical Exam Narrative General: NAD HEENT normocephalic, atraumatic. Mucous membrane moist Heart: Normal S1, S2. No rubs or murmurs Abdomen: Normal bowel sound, soft, nontender, no guarding or rebound Extremity: No edema Assessment & Plan Assessment/Plan (1) Acute kidney injury: PLAN: -Baseline creatinine prior to last admit was 1.8. At the time of discharge her creatinine was around 2.2-2.4. -Serum creatinine was slowly increasing at the senior living. -Renal ultrasound without any hydronephrosis. -WHITLEY could be due to ATN related to current sepsis. -Dialysis was initiated on 03/10/2021. -The patient was dialyzed yesterday (03/13/2021). She tolerated dialysis well. -The patient is nonoliguric. We will monitor for any recovery of renal function. -Recheck renal function and reassess volume status tomorrow. (2) Chronic kidney disease, stage 3b: PLAN: -Baseline serum creatinine was 1.8 mg/dL. (3) Pneumonia due to COVID-19 virus: PLAN: -The patient is on dexamethasone. -Overall management as per hospital medicine service. (4) UTI (urinary tract infection): QUALIFIERS: Urinary tract infection type: acute cystitis He maturia presence: without hematuria Qualified Code(s): N30.00 - Acute cystitis without hematuria PLAN: -The patient is on Zosyn. Dose is appropriate for patient on IHD. -Overall management as per hospital medicine service.
--- NOTE | 2021-03-14 11:20 | PN.HOSP_ITS ---
Subjective Subjective Feels well. Denies any complaints Objective Data Objective Data Vital Signs: Vital Signs Temp Pulse Resp BP Pulse Ox 36.7 C 36 L 16 150/77 H 94 03/14/21 08:13 03/14/21 10:34 03/14/21 08:13 03/14/21 08:13 03/14/21 08:13 Oxygen Flow Rate (L/min) 1 Oxygen Delivery Method Room Air Weight: 94.2 kg Body Mass Index (BMI) 29.9 Intake & Output: Intake and Output for Last 24 Hours 03/12/21 03/13/21 03/14/21 23:59 23:59 23:59 Intake Total 1447.22 / 1447.22 950 / 950 160 / 160 Output Total 1325 / 1325 1974 / 1974 650 / 650 Balance 122.22 / 122.22 -1025 / -1025 -490 / -490 Lab / Micro Data Result Diagrams: 03/14/21 06:45 03/14/21 06:45 Labs: Laboratory Results - last 24 hr 03/14/21 06:45: WBC 3.3 L, RBC 3.20 L, Hgb 8.7 L, Hct 26.2 L, MCV 81.9, MCH 27.2, MCHC 33.2, RDW Std Deviation 50.3 H, RDW Coeff of Issac 16.9 H, Plt Count 219, MPV 9.9, Neut % (Auto) Not Reportable, Absolute Neuts (auto) 2.0, Absolute Lymphs (auto) 0.78 L, Total Counted 100, Neutrophils % (Manual) 60, Band Neutrophils % 1, Lymphocytes % (Manual) 24, Monocytes % (Manual) 13 H, Myelocytes % 2 H, Diff Path Review May foll, Atypical Lymphocytes RARE, Platelet Estimate ADEQUATE, RBC Morphology NORM C+C 03/14/21 06:45: Sodium 141, Potassium 3.5, Chloride 107, Carbon Dioxide 24.0, Anion Gap 10, BUN 20 H, Creatinine 2.39 H, Estim Creat Clear Calc 22.89, Est GFR (MDRD) Af Amer 26 L, Est GFR (MDRD) Non-Af 21 L, BUN/Creatinine Ratio 8.4 L, Glucose 87, Calcium 8.5 Micro: Microbiology 03/08/21 20:40 Blood Culture (Wb) - Anticubital Right Blood Culture - Final No growth in 5 days. 03/08/21 21:18 Blood Culture (Wb) - Anticubital Right Blood Culture - Final No growth in 5 days. 03/09/21 19:50 Sputum, Induced/Lukens Gram Stain - Final 03/09/21 19:50 Sputum, Induced/Lukens Respiratory Culture - Preliminary Yeast, not Radha albicans 03/08/21 20:00 Urine Catheter - Catheter Urine Culture - Final Culture exhibits no growth. 03/08/21 21:14 Nasal Secretion SARS-CoV-2 Antigen (Rapid) - Final SARS-CoV-2 (COVID 19) Physical Exam Const alert and no apparent distress HEENT head/scalp atraumatic Head and Scalp: normocephalic Eyes PERRL and EOMs intact bilaterally Neck no lymphadenopathy Resp normal respiratory effort, no retractions, no use of accessory muscles and clear to auscultation bilaterally Cardio regular rate, regular rhythm, S1 normal heart sound and S2 normal heart sound GI normal to inspection, nondistended, normoactive bowel sounds, soft to palpation, non-tender and non-distended Extremity normal to inspection Skin Skin Narrative: Accumulated scales on her lower extremities. No evidence of cellulitis Neuro Sensorium / Orientation: awake and alert Psych affect normal Assessment & Plan Assessment/Plan (1) Acute kidney injury: (2) Pneumonia due to COVID-19 virus: (3) UTI (urinary tract infection): QUALIFIERS: Urinary tract infection type: acute cystitis Hematuria presence: without hematuria Qualified Code(s): N30.00 - Acute cystitis without hematuria (4) Sepsis: QUALIFIERS: Sepsis type: sepsis due to unspecified organism Sepsis acute organ dysfunction status: with acute organ dysfunction Severe sepsis acute organ dysfunction type: acute renal failure Acute renal failure type: unspecified Severe sepsis shock status: without septic shock Qualified Code(s): A41.9 - Sepsis, unspecified organism; R65.20 - Severe sepsis without septic shock; N17.9 - Acute kidney failure, unspecified (5) Myoclonus: (6) Status epilepticus: (7) Acute respiratory failure, unspecified whether with hypoxia or hypercapnia: QUALIFIERS: Respiratory failure complication: hypoxia and hypercapnia Qualified Code(s): J96.01 - Acute respiratory failure with hypoxia; J96.02 - Acute respiratory failure with hypercapnia PLAN: 1. WHITLEY Oliguric Post obstructive v ATN nephrology on consult avoid nephrotoxic agents renal US showed non-obstructive right renal parenchymal stones started HD on 03/10/21 2. COVID 19 + on the , quarantine through the unclear when Sx began on dexamethasone through the no remdesivir nor baricitinib given WHITLEY 3. Sepsis POA qSOFA score of 2 2/2 UTI, COVID 19 +/- bacterial pneumonia f/u Cx on pip/tazo continue for 7 days (through the ) DC linezolid 4. UTI recently had a Proteus UTI on Pip/tazo started on first UCx negative here 5. myoclonus resolved May have been toxic metabolic due to the patient's renal failure, medications not being adequately cleared from her system versus status epilepticus No seizure activity noted at this time. on levetiracetam First EEG inconclusive due to artifact from continuous movement. Noted that there is moderate generalized background slowing. Second EEG was negative for seizure. Cancel transfer to [facility] since pt clearly not in status epilepticus (unclear if she ever was) MRI brain performed and results pending. Once that is resulted out, would consult SOC telemetry neurology to see if patient would need to continue with the levetiracetam. 6. Recent ureteral stone nephrostomy tube placed at [facility] Follow-up with urology as outpatient 7. VTE prophylaxis: change to SQ heparin 8. A. fib Patient had periods of bradycardia Cardiology following 9. Acute hypoxic and hypercapnic respiratory failure Intubated primarily for airway protection extubated on March 12 Charges/Coding Visit Charges Inpatient E&M: 45236 Subs Hosp L3
[2021-03-14] MEDS: 0.9% Saline Lock 10 ML Syringe IV ×2 (11:25→23:10)
[2021-03-14] MEDS: Aspirin 81 MG TAB.CHEW PO (13:47)
[2021-03-14] MEDS: APIXABAN 2.5 MG TABLET PO (21:41)
[2021-03-14] MEDS: Atorvastatin Calcium 40 MG Tablet PO (21:41)
[2021-03-15] VITALS (11 sets, daily range): BP systolic 128–146; BP diastolic 63–80; PULSE 46–89; RESP 15–18; TEMP 36.6–36.9; O2SAT 92–99; BMI 29.9
--- NOTE | 2021-03-15 08:28 | PN.HOSP_ITS ---
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 History is limited as patient could not give chronological history. Denies prior history of CVA/stroke. Denies chest pain. Black color thick scales in both lower legs Objective Data Objective Data Vital Signs: Vital Signs Temp Pulse Resp BP Pulse Ox 97.9 F 61 16 128/79 H 95 03/15/21 03:35 03/15/21 06:56 03/15/21 03:35 03/15/21 03:35 03/15/21 03:55 Oxygen Flow Rate (L/min) 1 Oxygen Delivery Method Room Air Weight: 204 lb 9.423 oz Body Mass Index (BMI) 29.9 Intake & Output: Intake and Output for Last 24 Hours 03/13/21 03/14/21 03/15/21 23:59 23:59 23:59 Intake Total 950 / 950 530 / 530 50 / 50 Output Total 1974 / 1974 1100 / 1450 950 / 950 Balance -1025 / -1025 -570 / -920 -900 / -900 Lab / Micro Data Result Diagrams: 03/14/21 06:45 03/14/21 06:45 Micro: Microbiology 03/08/21 20:40 Blood Culture (Wb) - Anticubital Right Blood Culture - Final No growth in 5 days. 03/08/21 21:18 Blood Culture (Wb) - Anticubital Right Blood Culture - Final No growth in 5 days. 03/09/21 19:50 Sputum, Induced/Lukens Gram Stain - Final 03/09/21 19:50 Sputum, Induced/Lukens Respiratory Culture - Preliminary Yeast, not Radha albicans 03/08/21 20:00 Urine Catheter - Catheter Urine Culture - Final Culture exhibits no growth. 03/08/21 21:14 Nasal Secretion SARS-CoV-2 Antigen (Rapid) - Final SARS-CoV-2 (COVID 19) Radiography Diagnostic Testing: Radiology Impression Brain MRI 03/14/21 08:41 IMPRESSION: Acute lacunar type infarct of the right cerebellum. Electronically Signed: Trell Fatima MD at 11:47 EST , ADDENDUM: 03/14/21 1209 IMPRESSION: Acute lacunar type infarct of the right cerebellum. N.B. : The above Results were Read Back by Trell Fatima MD to Toni [id number] E, and understanding confirmed on 03/14/2021 12:02:34 (ET). Electronically Signed: Trell Fatima MD at 11:47 EST , Physical Exam Narrative General: Awake, oriented x3, Cooperative HEENT: Atraumatic, PERRLA, EOMI, Normocephalic Oral: No Gingival or Mucosal Lesions/ Ulcerations Neck: Supple, No JVD, Negative Carotid Bruits Lungs: Air entry diminished in bilateral lung bases. No crepitation/rhonchi Cardiovascular: Regular rate, Regular Rhythm, Normal S1, Normal S2, No murmurs Abdomen: Bowel Sounds Present, Soft, Non Tender, Non-Distended : No renal angle tenderness. No suprapubic tenderness. Extremities: No edema, Capillary Refill Less than 3 Seconds Skin: Thick black scales on both lower legs. Musculoskeletal: Weakness of both lower extremities, power 4/5. ROM restricted Neurological: Right facial droop suggestive right facial nerve palsy. Sensation intact and symmetrical on both sides. No marked/discernible dysarthria or dysphagia. Psych/Mental Status: Flat affect Assessment & Plan Assessment/Plan (1) Acute kidney injury: (2) Pneumonia due to COVID-19 virus: (3) UTI (urinary tract infection): QUALIFIERS: Hematuria presence: without hematuria Urinary tract infection type: acute cystitis Qualified Code(s): N30.00 - Acute cystitis without hematuria (4) Sepsis: QUALIFIERS: Acute renal failure type: unspecified Sepsis acute organ dysfunction status: with acute organ dysfunction Sepsis type: sepsis due to unspecified organism Severe sepsis acute organ dysfunction type: acute renal failure Severe sepsis shock status: without septic shock Qualified Code(s): A41.9 - Sepsis, unspecified organism; R65.20 - Severe sepsis without septic shock; N17.9 - Acute kidney failure, unspecified (5) Myoclonus: (6) Status epilepticus: (7) Acute respiratory failure, unspecified whether with hypoxia or hypercapnia: QUALIFIERS: Respiratory failure complication: hypoxia and hypercapnia Qualified Code(s): J96.01 - Acute respiratory failure with hypoxia; J96.02 - Acute respiratory failure with hypercapnia PLAN: 1. WHITLEY on chronic kidney disease stage IIIb: Patient was oliguric. On 03/14 patient had 450 mill urine output charted. WHITLEY most probably due to ATN. Pharmacy Messenger consulted. Renal ultrasound shows nonobstructive right renal parenchymal stones. On hemodialysis started on 03/10/2021 2. Acute COVID 19 + on the , quarantine through the unclear when Sx began. Patient on room air on dexamethasone through the no remdesivir nor baricitinib given WHITLEY 3. Sepsis, present on admission. qSOFA score of 2 2/2 UTI, COVID 19 infection. Prelim respiratory culture shows is 3+, not Radha albicans on pip/tazo continue for 7 days (through the ) DC linezolid 4. UTI recently had a Proteus UTI on Pip/tazo started on first UCx negative here 5. myoclonus resolved May have been toxic metabolic due to the patient's renal failure, medications not being adequately cleared from her system versus status epilepticus No seizure activity noted at this time. on levetiracetam First EEG inconclusive due to artifact from continuous movement. Noted that there is moderate generalized background slowing. Second EEG was negative for seizure. Status epilepticus ruled out. Transfer to [facility] was canceled patient not eager to go there. MRI brain shows right ischemic cerebellar stroke. Does not have dysarthria or dysphagia. MRA head and neck ordered. Limited 2D echo w ith bubble study. SOC consult after work-up is done. 6. Recent ureteral stone nephrostomy tube placed at [facility] Follow-up with urology as outpatient 7. VTE prophylaxis: change to SQ heparin 8. Paroxysmal A. fib. Currently patient is sinus rhythm. Patient had episode of bradycardia. Cardiology following 9. Acute hypoxic and hypercapnic respiratory failure Intubated primarily for airway protection extubated on March 12 Active Medications Acetaminophen (Acetaminophen 650 Mg Suppository) 650 mg RC Q4H PRN PRN PRN Reason: Pain Score 1-10/Temp > 100.7 F Last Admin: 03/10/21 22:13 Dose: 650 mg Documented by: Alteplase, Recombinant (Alteplase 2 Mg/2 Ml Vial) 2 mg IV X1 PRN PRN Reason: clogged picc Apixaban (Apixaban 2.5 Mg Tablet) 2.5 mg PO BID [facility] Last Admin: 03/15/21 09:10 Dose: 2.5 mg Documented by: Aspirin (Aspirin 81 Mg Tab.Chew) 81 mg PO BREAKFAST [facility] Last Admin: 03/15/21 09:10 Dose: 81 mg Documented by: Atorvastatin Calcium (Atorvastatin Calcium 40 Mg Tablet) 40 mg PO QHS [facility] Last Admin: 03/14/21 21:41 Dose: 40 mg Documented by: Dexamethasone Sodium Phosphate (Dexamethasone 10 Mg/Ml Vial) 6 mg IV DAILY [facility] Last Admin: 03/15/21 11:40 Dose: 6 mg Documented by: Heparin Sodium (Porcine) (Heparin 10,000 Units/10 Ml Vial) 1,000 units IV X1 PRN PRN Reason: dialysis catheter patency Stop: 04/10/21 12:00 Hydralazine HCl (Hydralazine 20 Mg/Ml Vial) 10 mg IV Q4H PRN PRN PRN Reason: blood pressure Sodium Chloride () 250 mls @ 15 mls/hr IV .[id number] PRN PRN Reason: Saline Flush Last Infusion: 03/10/21 16:04 Dose: Infused Documented by: Sodium Chloride () 250 mls @ 15 mls/hr IV .[id number] PRN PRN Reason: Additional IVPB Infusion Piperacillin Sod/Tazobactam Sod (Zosyn) 3.375 gm in 50 mls @ 12.5 mls/hr IV Q12 [facility] Stop: 03/16/21 02:01 Last Admin: 03/15/21 11:40 Dose: 12.5 mls/hr Documented by: Levetiracetam 500 mg/ Sodium (Chloride) 105 mls @ 400 mls/hr IV Q12 [facility] Last Infusion: 03/15/21 09:22 Dose: Infused Documented by: Pantoprazole Sodium 40 mg/ (Sodium Chloride) 110 mls @ 330 mls/hr IV Q12 [facility] Last Infusion: 03/15/21 09:41 Dose: Infused Documented by: Lactic Acid (Ammonium Lactate 225 Gm Bottle) 1 applic TOPICAL BID [facility]; Protocol Last Admin: 03/15/21 09:40 Dose: 1 applic Documented by: Ondansetron HCl (Ondansetron 4 Mg/2 Ml Vial) 4 mg IV Q8H PRN PRN PRN Reason: NAUSEA/VOMITING Sodium Chloride (0.9% Saline Lock 10 Ml Syringe) 10 - 40 ml IV UD PRN PRN Reason: SALINE FLUSH Last Admin: 03/15/21 11:41 Dose: 10 ml Documented by: Charges/Coding Visit Charges Inpatient E&M: 91539 Subs Hosp L2
[2021-03-15] MEDS: 0.9% Saline Lock 10 ML Syringe IV ×5 (08:59→20:59)
--- NOTE | 2021-03-15 09:00 | MRI_ITS ---
HISTORY: CVA. TECHNIQUE: Routine carotid MR angiogram protocol was performed. 3D reconstructions were reviewed. Nascet criteria using the distal ICAs for comparison were used for evaluation of stenoses. IV Contrast dosage and agent: None. # of images incl. paperwork: 547. COMPARISON: None. FINDINGS: AORTIC ARCH AND BRANCHES: Limited evaluation due to motion artifact. RIGHT COMMON CAROTID ARTERY: No occlusion or high-grade stenosis. LEFT COMMON CAROTID ARTERY: Patent. RIGHT INTERNAL CAROTID ARTERY: No occlusion or high-grade stenosis. LEFT INTERNAL CAROTID ARTERY: Patent. RIGHT VERTEBRAL ARTERY: Patent. LEFT VERTEBRAL ARTERY: Patent. MRI/MRA Neck without Contrast IMPRESSION: Motion artifact. No evidence for occlusion in the carotid or vertebral arteries of the neck. at 1202 Reported and signed by: Brooklyn Solis MD Electronically Signed: Brooklyn Solis MD at 12:01 EST ,
--- NOTE | 2021-03-15 09:00 | MRI_ITS ---
History: CVA EXAMINATION: MRA Head W/O Contrast TECHNIQUE: Routine [place]/brain 3D time of flight MR angiogram protocol was performed without gadolinium. 3D reconstructions were reviewed. IV Contrast dosage and agent: None. COMPARISON: None FINDINGS: Incomplete evaluation of the cerebral arteries due to significant motion artifacts. --Anterior circulation: ICAs: No flow limiting stenosis of the intracranial/visualized segments. ACAs: Not evaluated ACOM: Not evaluated MCAs: Not evaluated --Posterior circulation: PCOMs: Not evaluated processing spec: Not evaluated BASILAR ARTERY: No flow limiting stenosis. VERTEBRAL ARTERIES: No flow limiting stenosis of the intracranial/visualized segments. MRI/MRA Head ONLY without Contrast IMPRESSION: Nondiagnostic exam related to motion artifacts. Patent proximal internal carotid and vertebrobasilar arteries. No evaluation of the cerebral arteries. at 1214 Reported and signed by: Maxim Julien MD Electronically Signed: Maxim Julien MD at 12:13 EST ,
[2021-03-15] MEDS: Aspirin 81 MG TAB.CHEW PO (09:10)
[2021-03-15] MEDS: APIXABAN 2.5 MG TABLET PO ×2 (09:10→20:59)
[2021-03-15] MEDS: Ammonium Lactate 225 gm Bottle 1 APPLIC TOPICAL ×2 (09:40→20:59)
--- NOTE | 2021-03-15 10:44 | CASEMGMT ---
ANGELES called Gayla with [facility] and patient would be able to return to [facility] 03-16-21. ANGELES let Gayla know that patient may be a new dialysis. Gayla said that is fine as [facility] has their own transportation. ANGELES will fax updates. ANGELES faxed updates to [facility]. ([facility] phone: [phone] and fax: [phone]) ANGELES called patient's sister Keila. She would like patient to go to [facility] at discharge. She is aware patient may need dialysis and she has no preference for dialysis center. Plan: d/c to [facility] pending pre-cert and patient being medically ready. Dotty WISE
--- NOTE | 2021-03-15 11:10 | ECHOL_ITS ---
Reason For Study: CVA Procedure This was a limited 2D transthoracic echocardiogram. The study was technically difficult. Exam performed portable in patient room. Left Ventricle Normal LV size. Left ventricular systolic function is normal. Right Ventricle Normal RV size. Atria Normal left atrium. Normal right atrium. Bubble contrast study negative for right to left interatrial shunt. Pericardium/Pleural No pericardial effusion. Medication Performed a rapid injection of agitated mix of 9 cc saline and 1cc air to assess for atrial septal defect. Bubble study only. Technically difficult due to respiratory interference and poor acoustic windows. ECHO/Echo, Limited Study Interpretation Summary Normal LV size. Left ventricular systolic function is normal. Bubble contrast study negative for right to left interatrial shunt. Ordering Physician: Jeramie Roach Referring Physician: GREY MERRITT Performed By: Abby Fenton, EFREN, RVT
[2021-03-15] MEDS: dexAMETHasone 10 MG/ML Vial 6 MG IV (11:40)
[2021-03-15] MEDS: Piperacil/Tazobactam 3.375 GM/50 ML ML IV ×2 (11:40→20:59)
--- NOTE | 2021-03-15 13:07 | SP.MBSS_ITS ---
Modified Barium Swallow - Patient Information Study Date: 03/15/21 Study Time: 13:30 Direct Billable Minutes: 100 Total Minutes procedure & reportin Diagnosis: Acute respiratory failure (J96.00) Referring Physician: Jeramie Roach Reason for Referral: Objectively assess swallow function, risk for aspiration, and determine recommendations for least restrictive diet texture and compensatory strategies to improve safety of swallow. Medical History: MICHAEL MARROQUIN, is a 70 F with a significant history of a partial nephrectomy; previous alcoholism who presented to [facility] on 03/13/2021 from the longterm with 6 days of progressively worsening malaise. Associated with her symptoms was confusion. Earlier the same week patient was conversational. Per RNAnam, the patient was consuming regular textures / thin liquids. Of note on September 03, 2021 patient went to [facility] and was diagnosed with UTI and COVID. She was placed on antibiotics. Patient currently lives at the longterm. Recently she was started on supplemental oxygenation. Chest X-Ray 03/08/21 IMPRESSION: Bilateral basilar patchy infiltrates. The patient was admitted for management of WHITLEY, PNA secondary to COVID-19, UTI, and sepsis. During hospitalization, she required intubation. The patient was extubated on 03/12/2021 and failed RN dysphagia screen. She was referred for speech consult upon extubation and was placed NPO sips and chips. She has been recommended for MBS study to determine appropriateness for diet advancement and to provide recommendations for least restrictive diet textures and aspiration precautions. 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 Medical History Anemia Idiopathic neuropathy Insomnia Kidney disease Venous (peripheral) insufficiency Current Diet Ordered: NPO with Sips and Chips Dentition: Edentulous - Pt has upper and lower dentures, but not present for study. Mental Status: WNL Respiratory Status: Oxygenating on Room Air - Penetration-Aspiration Scale Penetration-Aspiration Scale: OBJECTIVE ASSESSMENT OF SWALLOW FUNCTION (QUANTITATIVE ? PER TRIAL): PENETRATION / ASPIRATION SCALE (NOGUERA): 1 = does not enter airway 2 = enters airway/above vocal folds/ejected 3 = enters airway/above vocal folds/not ejected 4 = enters airway/contacts vocal folds/ejected 5 = enters airway/contacts vocal folds/not ejected 6 = enters airway/below vocal folds/ejected 7 = enters airway/below vocal folds/not ejected despite effort 8 = enters airway/below vocal folds/no effort VIDEOFLOROSCOPIC SCALE SCORE (NOGUERA): Grade I = aspiration of material that has penetrated into the laryngeal vestibule, intact cough reflex Grade II = aspiration < 10 % of the bolus, intact cough reflex Grade III = aspiration of < 10 % of the bolus, reduced cough reflex or aspiration of > 10 % of the bolus, intact cough reflex Grade IV = aspiration of > 10 % of the bolus, reduced cough reflex - Penetration-Aspiration Scale Score Thin Liquid via teaspoon Result: 2= enter airway/above vocal folds/ejected Thin Liquid via teaspoon Trial 2 Result: 2= enter airway/above vocal folds/ejected Thin Liquid via small single sip from cup Result: 2= enter airway/above vocal folds/ejected [place] Thick Liquid via small single sip from cup Result: 1= does not enter airway Honey Thick Liquid via small single sip from cup Result: 1= does not enter airway Pudding Result: 1= does not enter airway Comment: Following pudding trial, attempted 1/4 Talisha Doone cookie; however, the patient had to spit out the cookie due to mastication deficits. Thin Liquid via single sip from straw Result: 1= does not enter airway Thin Liquid via large single sip from straw Result: 3= enters airways/above vocal folds/not ejected Thin Liquid via single sip from straw Trial 2 Result: 2= enter airway/above vocal folds/ejected Thin Liquid via small single sip from cup Trial 2 Result: 5= enters airways/contacts vocal folds/not ejected - Cannot definitively rule out aspiration. Difficult to view below the level of the VF during the study due to patient's body habitus. [place] Thick Liquid via large single sip from cup Result: 1= does not enter airway - Oral Phase Labial Seal: No Labial Escape Tongue Control During Bolus Hold: Posterior escape of less than half of bolus Bolus Preparation/Mastication: Minimal chewing/mashing with majority of bolus unchewed Bolus Transport/Lingual Motion: Repetitive/disorganized tongue motion Oral Residue: Majority of bolus remaining - Pharyngeal Phase Initiation of Pharyngeal Swallow: Bolus head in pyriforms Soft Palate Elevation: No bolus between soft palate and pharyngeal wall Laryngeal Elevation: Partial superior movement thyroid cart/partial apprx aryt- epig petiole Anterior Hyoid Excursion: Partial anterior movement Epiglottic Movement: Partial inversion Laryngeal Vestibule Closure at Height of Swallow: Incomplete; narrow column of air/contrast in laryngeal vestibule Pharyngeal Stripping Wave: Present - diminished Pharyngoesophageal Segment Opening: Parital distension and partial duration; parital obstruction of flow Tongue Base Retraction: Trace column of contrast between tongue base & post. pharyngeal wall Pharyngeal Residue: Collection of residue within or on pharyngeal structures - Treatment Strategies Effects of treatment strategies attemped:: Decreased bolus size = Effective. - Diagnosis/Impression Diagnosis: Moderate oropharyngeal phase dysphagia (R13.12) Impression: The oral phase is primarily marked by deficits in mastication and A-P bolus transport. The patient was demonstrated little to no chewing of 1/4 Talisha Doone cookie, which [employer] cleared from oral cavity as the patient was unsafe to swallow the unchewed bolus. The patient also demonstrating piecemeal deglutition of pudding bolus, requiring 3 swallows to clear the oral cavity with slowed A-P transport of bolus. The pharyngeal phase is primarily marked by decreased airway closure due to decreased laryngeal elevation and decreased anterior hyoid excursion. The patient also demonstrated delayed swallow onset with bolus head of certain thin liquid trials in the pyriforms. The patient demonstrated laryngeal penetration with full ejection of thin liquid via tsp. Could not rule out aspiration of thin liquid via cup - Patient penetrated thin liquid contrast to the vocal folds without full ejection. Unable to view below the vocal folds due to patient's body habitus. - Recommendations Diet: Puree Textures, [place]-thick Liquids Compensatory Strategies: Small Bites, Small Sips, Slow Rate, Sitting upright, Remain sitting upright for 30 minutes after PO intake Supervision: Assist as needed, 1:1 Close Supervision Recommend Repeat Modified Barium Swallow: Yes - Repeat MBS study 4-6 weeks after implementation of oropharyngeal strengthening. Need for Skilled Speech Therapy Services: Yes Comment: Will recommend the patient for continued dysphagia therapy to address deficits in oropharyngeal swallow function. Would consider the patient for oropharyngeal strengthening to improve lingual coordination and strength, mastication abilities, laryngeal elevation, and hyoid excursion. The patient would benefit from thorough education regarding diet recommendations and recommended compensatory strategies. Would strongly consider the patient for implementation of [place] Free Water Protocol (FFWP) to encourage hydration and promote increased opportunities for swallowing throughout the patient?s day. Education Completed: 1. Described result of evaluation., 7. Pt requires further education on strategies & risks. - Status Active ST Patient: Active - Contact Information [facility] Speech Therapy:: Rufina Soares M.A. [facility]-[employer] Speech-Language Pathologist [facility] [address] [place] [address] [email or web address] [phone] 03/15/21 14:45
--- NOTE | 2021-03-15 13:17 | CASEMGMT ---
Addendum entered by Symone Santiago 03/15/21 15:45: Clarification: COVID test was at [facility] on 03/06/21. Krista DORANTES CM Addendum entered by Symone Santiago 03/15/21 14:31: Per Blaine at [facility], pt's have to be 14 days out of COVID(day 1 is day of test) prior to going to non-COVID OP HD center. Per chart, pt's positive COVID test was 03/06/21 at [facility] and per Blaine, pt could go to non-COVID clinic starting 03/20/21. CM to follow. Krista DORANTES CM Original Note: Pt's sister states no preference on dialysis center for pt but plan is for pt to return to [facility] in [place] at discharge. Referral placed for [facility] Lorri Martinez. Krista DORANTES CM
[2021-03-15] MEDS: Alteplase 2 MG/2 ML Vial IV (14:26)
[2021-03-15 15:05] LABS: Pathologist Review Reviewed
[2021-03-15 15:06] LABS: Pathologist Review Reviewed
--- NOTE | 2021-03-15 15:41 | PN.RENAL_ITS ---
Subjective Subjective No overnight events, resting in bed, just returned from swallow eval. Objective Data Objective Data Vital Signs: Vital Signs Temp Pulse Resp BP Pulse Ox 97.8 F 47 L 15 146/63 H 99 03/15/21 13:26 03/15/21 13:26 03/15/21 13:26 03/15/21 13:26 03/15/21 13:26 Oxygen Flow Rate (L/min) 1 Oxygen Delivery Method Room Air Weight: 92.8 kg Body Mass Index (BMI) 29.9 Intake & Output: Intake and Output for Last 24 Hours 03/13/21 03/14/21 03/15/21 23:59 23:59 23:59 Intake Total 950 / 950 530 / 530 265 / 265 Output Total 1974 / 1974 1100 / 1450 1200 / 1200 Balance -1025 / -1025 -570 / -920 -935 / -935 Lab / Micro Data Result Diagrams: 03/14/21 06:45 03/14/21 06:45 Labs: Laboratory Results - last 24 hr 03/13/21 04:20: Diff Path Review Reviewed 03/14/21 06:45: Diff Path Review Reviewed Micro: Microbiology 03/08/21 20:40 Blood Culture (Wb) - Anticubital Right Blood Culture - Final No growth in 5 days. 03/08/21 21:18 Blood Culture (Wb) - Anticubital Right Blood Culture - Final No growth in 5 days. 03/09/21 19:50 Sputum, Induced/Lukens Gram Stain - Final 03/09/21 19:50 Sputum, Induced/Lukens Respiratory Culture - Preliminary Yeast, not Radha albicans 03/08/21 20:00 Urine Catheter - Catheter Urine Culture - Final Culture exhibits no growth. 03/08/21 21:14 Nasal Secretion SARS-CoV-2 Antigen (Rapid) - Final SARS-CoV-2 (COVID 19) Radiography Diagnostic Testing: Radiology Impression Head MRA 03/15/21 09:00 IMPRESSION: Nondiagnostic exam related to motion artifacts. Patent proximal internal carotid and vertebrobasilar arteries. No evaluation of the cerebral arteries. at 1214 Reported and signed by: Maxim Julien MD Electronically Signed: Maxim Julien MD at 12:13 EST , Neck MRA 03/15/21 09:00 IMPRESSION: Motion artifact. No evidence for occlusion in the carotid or vertebral arteries of the neck. at 1202 Reported and signed by: Brooklyn Solis MD Electronically Signed: Brooklyn Solis MD at 12:01 EST , Physical Exam Narrative General: NAD HEENT normocephalic, atraumatic. Mucous membrane moist Heart: Normal S1, S2. No rubs or murmurs Abdomen: Normal bowel sound, soft, nontender, no guarding or rebound Extremity: No edema Assessment & Plan Assessment/Plan (1) Acute kidney injury: PLAN: -Baseline creatinine prior to last admit was 1.8. At the time of discharge her creatinine was around 2.2-2.4. -Serum creatinine was slowly increasing at the correction. -Renal ultrasound without any hydronephrosis. -WHITLEY could be due to ATN related to current sepsis, non-oliguric. -Dialysis was initiated on 03/10/2021. -The patient was dialyzed 03/13/2021. No labs today. No HD today. UOP 1.2L so far today. Labs ordered for am. -The patient is nonoliguric. We will monitor for any recovery of renal function. -Recheck renal function and reassess volume status tomorrow - d/c plans in progress. If remains HD dependent patient will need tunneled HD catheter. Her +Covid test was on 03/06/2021. Able to go to non-isolation o utpatient HD unit after 03/19/2021. (2) Chronic kidney disease, stage 3b: PLAN: -Baseline serum creatinine was 1.8 mg/dL. (3) Pneumonia due to COVID-19 virus: PLAN: -The patient is on dexamethasone. -Overall management as per hospital medicine service. (4) UTI (urinary tract infection): QUALIFIERS: Urinary tract infection type: acute cystitis Hematuria presence: without hematuria Qualified Code(s): N30.00 - Acute cystitis without hematuria PLAN: -The patient is on Zosyn. Dose is appropriate for patient on IHD. -Overall management as per hospital medicine service.
[2021-03-15 16:19] LABS: Absolute Lymphocyte Count 0.57 X10^3/uL (0.83-4.51); Absolute Neutrophil Count 3.7 X10^3/uL (2.0-7.7); Eosinophil# 0.01 X10^3/uL; Eosinophils% 0.2 % (0-5); Hemoglobin 8.6 g/dL (12.0-15.0); Lymphocyte # 0.57 X10^3/ul (0.83-4.51); Lymphocyte % 11.7 % (19-41); Mean Corp Hgb Conc 31.9 g/dL (32-36); Mean Corpuscular Hgb 27.6 pg (27.0-32.0); Mean Platelet Vol. 9.8 fl (6.2-12.0); Monocyte# 0.43 X10^3/uL; Monocyte% 8.8 % (0-10); NRBC Flagged by Analyzer 0 % (0-5); Neutrophil # 3.73 X10^3/uL (2.7-7.7); Neutrophil % 76.8 % (47-70); POSITIVE DIFFERENTIAL YES; Platelet Count 228 K/mm3 (150-450); RBC Distribution Width CV 17.2 % (11.6-14.6); RBC Distribution Width SD 53.5 fl (35.1-43.9); Red Blood Count 3.12 M/mm3 (4.2-5.4); White Blood Count 4.9 K/mm3 (4.4-11.0)
[2021-03-15 16:25] LABS: Differential Indicated SCAN CRITERIA MET; Mean Corpuscular Volume 86.5 fL (81-99)
[2021-03-15 16:50] LABS: BUN 29 mg/dL (7-18); BUN/Creat Ratio 9.9 RATIO (10-20); Calcium,Total 8.4 mg/dL (8.5-10.1); Chloride 113 mmol/L (98-107); Cholesterol 162 mg/dL (200); Creatinine, Serum 2.94 mg/dL (0.55-1.02); EST Glomerular Filtration Rate 17 mL/min (>60); Est Glom Filt Rate - Afr Amer 20 mL/min (>60); Estimated Creatinine Clearance 18.61 ml/min; Glucose 103 mg/dL (74-106); High Density Lipoprotein 42 mg/dL; Phosphorus 3.4 mg/dL (2.5-4.9); Potassium 3.2 mmol/L (3.5-5.1); Sodium Level 146 mmol/L (136-145); Triglycerides 199 mg/dL; Very Low Density Lipoprotein 40 mg/dL (5-40)
[2021-03-15 17:24] LABS: Anisocytosis 1+; Platelet Estimate ADEQUATE (ADEQ)
[2021-03-15 17:25] LABS: Red Cell Morphology N CHROM NORMAL (NORM C&C)
[2021-03-15] MEDS: Potassium Chloride Oral Soln 20 MEQ/15 ML UDC 40 MEQ PO (18:45)
[2021-03-15] MEDS: Atorvastatin Calcium 40 MG Tablet PO (20:59)
[2021-03-16] VITALS (10 sets, daily range): BP systolic 134–144; BP diastolic 74–94; PULSE 52–69; RESP 16–18; TEMP 36.3–36.9; O2SAT 96–100; BMI 29.9
[2021-03-16] MEDS: 0.9% Saline Lock 10 ML Syringe IV (06:30)
[2021-03-16 07:35] LABS: Anion Gap 8 (5-15); BUN 30 mg/dL (7-18); Chloride 114 mmol/L (98-107); Creatinine, Serum 2.72 mg/dL (0.55-1.02); EST Glomerular Filtration Rate 18 mL/min (>60); Est Glom Filt Rate - Afr Amer 22 mL/min (>60); Estimated Creatinine Clearance 20.11 ml/min; Glucose 89 mg/dL (74-106); Potassium 3.1 mmol/L (3.5-5.1); Sodium Level 145 mmol/L (136-145)
[2021-03-16] MEDS: Aspirin 81 MG TAB.CHEW PO (08:49)
[2021-03-16] MEDS: dexAMETHasone 10 MG/ML Vial 6 MG IV (08:50)
[2021-03-16] MEDS: Ammonium Lactate 225 gm Bottle 1 APPLIC TOPICAL ×2 (08:58→21:12)
[2021-03-16] MEDS: APIXABAN 2.5 MG TABLET PO ×2 (09:55→21:12)
[2021-03-16] MEDS: Potassium Chloride Oral Soln 20 MEQ/15 ML UDC 40 MEQ PO (09:55)
--- NOTE | 2021-03-16 12:03 | PCM.PN.REN ---
Subjective Subjective somewhat sleepy Objective Data Objective Data Vital Signs: Vital Signs Temp Pulse Resp BP Pulse Ox 97.3 F L 55 L 16 140/74 H 99 03/16/21 08:40 03/16/21 08:40 03/16/21 08:40 03/16/21 08:40 03/16/21 08:40 Oxygen Flow Rate (L/min) 1 Oxygen Delivery Method Room Air Weight: 90.4 kg Body Mass Index (BMI) 29.9 Intake & Output: Intake and Output for Last 24 Hours 03/14/21 03/15/21 03/16/21 23:59 23:59 23:59 Intake Total 530 / 530 824.5 / 1044.5 485 / 485 Output Total 1100 / 1450 1675 / 1825 250 / 250 Balance -570 / -920 -850.5 / -780.5 235 / 235 Lab / Micro Data Result Diagrams: 03/15/21 16:08 03/16/21 06:51 Labs: Laboratory Results - last 24 hr 03/13/21 04:20: Diff Path Review Reviewed 03/14/21 06:45: Diff Path Review Reviewed 03/15/21 16:08: Sodium 146 H, Potassium 3.2 L, Chloride 113 H, Carbon Dioxide 25.0, BUN 29 H, Creatinine 2.94 H, Estim Creat Clear Calc 18.61, Est GFR (MDRD) Af Amer 20 L, Est GFR (MDRD) Non-Af 17 L, BUN/Creatinine Ratio 9.9 L, Glucose 103, Calcium 8.4 L, Phosphorus 3.4, Albumin 2.0 L, Triglycerides 199, Cholesterol 162, LDL Cholesterol 80, VLDL Cholesterol 40, HDL Cholesterol 42 03/15/21 16:08: WBC 4.9, RBC 3.12 L, Hgb 8.6 L, Hct 27.0 L, MCV 86.5 D, MCH 27.6, MCHC 31.9 L, RDW Std Deviation 53.5 H, RDW Coeff of Issac 17.2 H, Plt Count 228, MPV 9.8, Immature Gran % (Auto) 2.500 H, Neut % (Auto) 76.8 H, Lymph % (Auto) 11.7 L, Mcdonald % (Auto) 8.8, Eos % (Auto) 0.2, Baso % (Auto) 0.0, Absolute Neuts (auto) 3.7, Absolute Lymphs (auto) 0.57 L, Nucleated RBC % 0, Differential Comment , Platelet Estimate ADEQUATE, RBC Morphology N CHROM, Anisocytosis 1+ 03/16/21 06:51: Sodium 145, Potassium 3.1 L, Chloride 114 H, Carbon Dioxide 23.0, Anion Gap 8, BUN 30 H, Creatinine 2.72 H, Estim Creat Clear Calc 20.11, Est GFR (MDRD) Af Amer 22 L, Est GFR (MDRD) Non-Af 18 L, BUN/Creatinine Ratio 11.0, Glucose 89, Calcium 8.0 L 03/16/21 06:51: Magnesium Cancelled Micro: Microbiology 03/08/21 20:40 Blood Culture (Wb) - Anticubital Right Blood Culture - Final No growth in 5 days. 03/08/21 21:18 Blood Culture (Wb) - Anticubital Right Blood Culture - Final No growth in 5 days. 03/09/21 19:50 Sputum, Induced/Lukens Gram Stain - Final 03/09/21 19:50 Sputum, Induced/Lukens Respiratory Culture - Preliminary Yeast, not Radha albicans 03/08/21 20:00 Urine Catheter - Catheter Urine Culture - Final Culture exhibits no growth. 03/08/21 21:14 Nasal Secretion SARS-CoV-2 Antigen (Rapid) - Final SARS-CoV-2 (COVID 19) Radiography Diagnostic Testing: Radiology Impression Head MRA 03/15/21 09:00 IMPRESSION: Nondiagnostic exam related to motion artifacts. Patent proximal internal carotid and vertebrobasilar arteries. No evaluation of the cerebral arteries. at 1214 Reported and signed by: Maxim Julien MD Electronically Signed: Maxim Julien MD at 12:13 EST , Neck MRA 03/15/21 09:00 IMPRESSION: Motion artifact. No evidence for occlusion in the carotid or vertebral arteries of the neck. at 1202 Reported and signed by: Brooklyn Solis MD Electronically Signed: Brooklyn Solis MD at 12:01 EST , Echocardiogram 03/15/21 11:10 Interpretation Summary Normal LV size. Left ventricular systolic function is normal. Bubble contrast study negative for right to left interatrial shunt. Ordering Physician: Jeramie Roach Referring Physician: GREY MERRITT Performed By: Abby Fenton, RDCS, RVT Physical Exam Narrative General: NAD HEENT normocephalic, atraumatic. Mucous membrane moist Heart: Normal S1, S2. No rubs or murmurs Abdomen: Normal bowel sound, soft, nontender, no guarding or rebound Extremity: No edema Assessment & Plan Assessment/Plan (1) Acute kidney injury: PLAN: -Baseline creatinine prior to last admit was 1.8. At the time of discharge her creatinine was around 2.2-2.4. -Serum creatinine was slowly increasing at the care home. -Renal ultrasound without any hydronephrosis. -WHITLEY could be due to ATN related to current sepsis, non-oliguric. -Dialysis was initiated on 03/10/2021. -The patient was dialyzed 03/13/2021. -The patient is nonoliguric. cr is better today. hold HD -hypokalemia. repleted this am gloria Roach (2) Chronic kidney disease, stage 3b: PLAN: -Baseline serum creatinine was 1.8 mg/dL. (3) Pneumonia due to COVID-19 virus: PLAN: -The patient is on dexamethasone. -Overall management as per hospital medicine service. (4) UTI (urinary tract infection): QUALIFIERS: Urinary tract infection type: acute cystitis Hematuria presence: without hematuria Qualified Code(s): N30.00 - Acute cystitis without hematuria PLAN: -management as per primary
--- NOTE | 2021-03-16 12:46 | CASEMGMT ---
ANGELES called [facility] and left a voice mail for Laurie in admissions. ANGELES requested a return call. Dotty Ann DIRECTOR OF ADULT EPILEPSYErin WISE
--- NOTE | 2021-03-16 12:57 | CASEMGMT ---
Pt's creatinine is improving, CM to follow for OP HD determination. SStaten RN CM
--- NOTE | 2021-03-16 15:40 | CASEMGMT ---
[facility] admissions contact: Twyla ext [phone]. Krista DORANTES CM
--- NOTE | 2021-03-16 16:20 | PCM.PN.HOSP ---
Subjective Subjective Patient lethargic and sleepy during daytime. pvc monitor shows sinus rhythm with PVCs. Discussed with the construction project administrator. Patient woke up and more alert in late afternoon. Discussed with nursing staff Objective Data Objective Data Vital Signs: Vital Signs Temp Pulse Resp BP Pulse Ox 98.1 F 65 18 144/94 H 100 03/16/21 14:50 03/16/21 14:50 03/16/21 14:50 03/16/21 14:50 03/16/21 14:50 Oxygen Flow Rate (L/min) 1 Oxygen Delivery Method Room Air Weight: 199 lb 4.766 oz Body Mass Index (BMI) 29.9 Intake & Output: Intake and Output for Last 24 Hours 03/14/21 03/15/21 03/16/21 23:59 23:59 23:59 Intake Total 530 / 530 824.5 / 1044.5 725 / 725 Output Total 1100 / 1450 1675 / 1825 625 / 625 Balance -570 / -920 -850.5 / -780.5 100 / 100 Lab / Micro Data Result Diagrams: 03/15/21 16:08 03/16/21 06:51 Labs: Laboratory Results - last 24 hr 03/15/21 16:08: Sodium 146 H, Potassium 3.2 L, Chloride 113 H, Carbon Dioxide 25.0, BUN 29 H, Creatinine 2.94 H, Estim Creat Clear Calc 18.61, Est GFR (MDRD) Af Amer 20 L, Est GFR (MDRD) Non-Af 17 L, BUN/Creatinine Ratio 9.9 L, Glucose 103, Calcium 8.4 L, Phosphorus 3.4, Albumin 2.0 L, Triglycerides 199, Cholesterol 162, LDL Cholesterol 80, VLDL Cholesterol 40, HDL Cholesterol 42 03/15/21 16:08: WBC 4.9, RBC 3.12 L, Hgb 8.6 L, Hct 27.0 L, MCV 86.5 D, MCH 27.6, MCHC 31.9 L, RDW Std Deviation 53.5 H, RDW Coeff of Issac 17.2 H, Plt Count 228, MPV 9.8, Immature Gran % (Auto) 2.500 H, Neut % (Auto) 76.8 H, Lymph % (Auto) 11.7 L, Edwards % (Auto) 8.8, Eos % (Auto) 0.2, Baso % (Auto) 0.0, Absolute Neuts (auto) 3.7, Absolute Lymphs (auto) 0.57 L, Nucleated RBC % 0, Differential Comment , Platelet Estimate ADEQUATE, RBC Morphology N CHROM, Anisocytosis 1+ 03/16/21 06:51: Sodium 145, Potassium 3.1 L, Chloride 114 H, Carbon Dioxide 23.0, Anion Gap 8, BUN 30 H, Creatinine 2.72 H, Estim Creat Clear Calc 20.11, Est GFR (MDRD) Af Amer 22 L, Est GFR (MDRD) Non-Af 18 L, BUN/Creatinine Ratio 11.0, Glucose 89, Calcium 8.0 L 03/16/21 06:51: Magnesium Cancelled Micro: Microbiology 03/08/21 20:40 Blood Culture (Wb) - Anticubital Right Blood Culture - Final No growth in 5 days. 03/08/21 21:18 Blood Culture (Wb) - Anticubital Right Blood Culture - Final No growth in 5 days. 03/09/21 19:50 Sputum, Induced/Lukens Gram Stain - Final 03/09/21 19:50 Sputum, Induced/Lukens Respiratory Culture - Preliminary Yeast, not Radha albicans 03/08/21 20:00 Urine Catheter - Catheter Urine Culture - Final Culture exhibits no growth. 03/08/21 21:14 Nasal Secretion SARS-CoV-2 Antigen (Rapid) - Final SARS-CoV-2 (COVID 19) Radiography Diagnostic Testing: Radiology Impression Echocardiogram 03/15/21 11:10 Interpretation Summary Normal LV size. Left ventricular systolic function is normal. Bubble contrast study negative for right to left interatrial shunt. Ordering Physician: Jeramie Roach Referring Physician: GREY MERRITT Performed By: Abby Fenton, EFREN, RVT Physical Exam Narrative General: Drowsy lethargic in the morning but awake, alert and oriented x3 in afternoon. HEENT: Atraumatic, PERRLA, EOMI, Normocephalic Oral: No Gingival or Mucosal Lesions/ Ulcerations Neck: Supple, No JVD, Negative Carotid Bruits Lungs: Air entry diminished in bilateral lung bases. No crepitation/rhonchi Cardiovascular: Regular rate, Regular Rhythm, Normal S1, Normal S2, No murmurs Abdomen: Bowel Sounds Present, Soft, Non Tender, Non-Distended : No renal angle tenderness. No suprapubic tenderness. Extremities: No edema, Capillary Refill Less than 3 Seconds Skin: Thick black scales on both lower legs. Musculoskeletal: Weakness of both lower extremities, power 4/5. ROM restricted Neurological: Right facial droop suggestive right facial nerve palsy. Sensation intact and symmetrical on both sides. No marked/discernible dysarthria or dysphagia. Psych/Mental Status: Flat affect Assessment & Plan Assessment/Plan (1) Acute kidney injury: (2) Pneumonia due to COVID-19 virus: (3) UTI (urinary tract infection): QUALIFIERS: Urinary tract infection type: acute cystitis Hematuria presence: without hematuria Qualified Code(s): N30.00 - Acute cystitis without hematuria (4) Sepsis: QUALIFIERS: Sepsis type: sepsis due to unspecified organism Sepsis acute organ dysfunction status: with acute organ dysfunction Severe sepsis acute organ dysfunction type: acute renal failure Acute renal failure type: unspecified Severe sepsis shock status: without septic shock Qualified Code(s): A41.9 - Sepsis, unspecified organism; R65.20 - Severe sepsis without septic shock; N17.9 - Acute kidney failure, unspecified (5) Myoclonus: (6) Status epilepticus: (7) Acute respiratory failure, unspecified whether with hypoxia or hypercapnia: QUALIFIERS: Respiratory failure complication: hypoxia and hypercapnia Qualified Code(s): J96.01 - Acute respiratory failure with hypoxia; J96.02 - Acute respiratory failure with hypercapnia PLAN: 1. WHITLEY on chronic kidney disease stage IIIb: Patient was oliguric. On 03/14 patient had 450 mill urine output charted. WHITLEY most probably due to ATN. Cloth Shearer consulted. Renal ultrasound shows nonobstructive right renal parenchymal stones. On hemodialysis started on 03/10/202103/16: Urine output 1600 to 1700 mL yesterday. Good urine output. Dialysis on hold. Discussed with the construction project administrator. 2. Acute COVID 19 + on the , quarantine through the unclear when Sx began. Patient on room air on dexamethasone through the no remdesivir nor baricitinib given WHITLEY 3. Sepsis, present on admission. qSOFA score of 2 2/2 UTI, COVID 19 infection. Prelim respiratory culture shows is 3+, not Radha albicans on pip/tazo continue for 7 days (through the ) DC linezolid. Sepsis resolved. 4. UTI recently had a Proteus UTI on Pip/tazo started on first UCx negative here 5. Acute right ischemic cerebellar stroke: Patient had myoclonus that was resolved. May have been toxic metabolic due to the patient's renal failure, medications not being adequately cleared from her system versus status epilepticus No seizure activity noted at this time. on levetiracetam First EEG inconclusive due to artifact from continuous movement. Noted that there is moderate generalized background slowing. Second EEG was negative for seizure. Status epilepticus ruled out. Transfer to [facility] was canceled patient not eager to go there. 03/16: MRI brain shows right ischemic cerebellar stroke. Does not have dysarthria or language deficit. Patient had wrongly high NIH stroke scale due to lethargy and not answering questions from 5-12. NIH stroke scale discontinued. MRA head does not show evidence for occlusion in carotid or vertebral arteries of the neck although motion artifact. Had MRI in complete evaluation due to motion artifact. Limited echo was negative for interatrial shunt. Discussed with [facility] neurologist. MRI brain showed very tiny stroke not very appreciable by neurologist blood cultures negative. Continue aspirin and Eliquis 2.5.. High intensity statin. PT OT and speech evaluation to continue. Modified swallow was done. Advised to continue Keppra until she follows outpatient neurologist. Patient had modified barium swallow which shows moderate oropharyngeal dysphagia and recommended pur?ed texture nectar thick liquid diet. 6. Recent ureteral stone nephrostomy tube placed at [facility] Follow-up with urology as outpatient 7. VTE prophylaxis: change to SQ heparin 8. Paroxysmal A. fib. Currently patient is sinus rhythm. Patient had episode of bradycardia. Cardiology following 9. Acute hypoxic and hypercapnic respiratory failure Intubated primarily for airway protection extubated on March 12 Charges/Coding Visit Charges Inpatient E&M: 89020 Subs Hosp L2
[2021-03-16] MEDS: Atorvastatin Calcium 40 MG Tablet PO (21:12)
[2021-03-17] VITALS (9 sets, daily range): BP systolic 126–151; BP diastolic 65–89; PULSE 56–81; RESP 14–18; TEMP 36.5–37.3; O2SAT 96–100; BMI 29.9
[2021-03-17] MEDS: 0.9% Saline Lock 10 ML Syringe IV ×2 (06:15→08:58)
[2021-03-17 06:50] LABS: Hemoglobin 8.2 g/dL (12.0-15.0); Mean Corp Hgb Conc 31.5 g/dL (32-36); Mean Corpuscular Hgb 27.5 pg (27.0-32.0); Mean Corpuscular Volume 87.2 fL (81-99); Mean Platelet Vol. 9.8 fl (6.2-12.0); POSITIVE COUNT YES; POSITIVE MORPHOLOGY YES; Platelet Count 243 K/mm3 (150-450); RBC Distribution Width CV 17.5 % (11.6-14.6); RBC Distribution Width SD 54.8 fl (35.1-43.9); Red Blood Count 2.98 M/mm3 (4.2-5.4); White Blood Count 6.6 K/mm3 (4.4-11.0)
[2021-03-17 06:51] LABS: Differential Indicated MANUAL DIFF
[2021-03-17 06:59] LABS: Anion Gap 6 (5-15); BUN 26 mg/dL (7-18); BUN/Creat Ratio 9.8 RATIO (10-20); Calcium,Total 8.1 mg/dL (8.5-10.1); Chloride 116 mmol/L (98-107); Creatinine, Serum 2.66 mg/dL (0.55-1.02); EST Glomerular Filtration Rate 19 mL/min (>60); Est Glom Filt Rate - Afr Amer 23 mL/min (>60); Estimated Creatinine Clearance 20.57 ml/min; Glucose 91 mg/dL (74-106); Potassium 3.5 mmol/L (3.5-5.1); Sodium Level 144 mmol/L (136-145)
[2021-03-17 07:06] LABS: Absolute Neutrophil Count 3.3 X10^3/uL (2.0-7.7)
[2021-03-17 07:07] LABS: Absolute Lymphocyte Count 1.79 X10^3/uL (0.83-4.51); Anisocytosis 1+; Atypical Lymphocyte 2+ %; Eosinophil 3 % (0-5); Lymphocyte 27 % (19-41); Monocyte 14 % (0-10); Myelocyte 6 % (0-0); Neutrophil-Band 1 % (0-5); Neutrophil-Segmented 49 % (47-70); Platelet Estimate ADEQUATE (ADEQ); Red Cell Morphology NORM C+C NORMAL (NORM C&C); Total Cells Counted 100 (MANUAL DIFF)
[2021-03-17] MEDS: Potassium Chloride Oral Soln 20 MEQ/15 ML UDC 40 MEQ PO (08:57)
[2021-03-17] MEDS: Aspirin 81 MG TAB.CHEW PO (08:57)
[2021-03-17] MEDS: APIXABAN 2.5 MG TABLET PO ×2 (08:57→22:00)
[2021-03-17] MEDS: dexAMETHasone 10 MG/ML Vial 6 MG IV (08:57)
[2021-03-17] MEDS: Ammonium Lactate 225 gm Bottle 1 APPLIC TOPICAL ×2 (08:58→22:00)
--- NOTE | 2021-03-17 09:55 | CASEMGMT ---
Qing, [facility] liasion, updated on pt at this time, voices understanding. Krista DORANTES CM
--- NOTE | 2021-03-17 10:49 | CASEMGMT ---
ANGELES called Laurie at [facility]. She has not received pre-cert yet, but she did submit for authorization. ANGELES let Laurie know that patient is ready so if she gets pre-cert to let ANGELES know. ANGELES also let Laurie know patient will no longer be on dialysis. ANGELES notified physician that patient's pre-cert has not been obtained yet. Plan: d/c back to [facility] pending insurance approval. Dotty Ann BRANCH OFFICE MANAGERErin WISE
--- NOTE | 2021-03-17 12:37 | PN.RENAL_ITS ---
Subjective Subjective no new events Objective Data Objective Data Vital Signs: Vital Signs Temp Pulse Resp BP Pulse Ox 97.7 F L 62 18 151/89 H 99 03/17/21 08:51 03/17/21 08:51 03/17/21 08:51 03/17/21 08:51 03/17/21 08:51 Oxygen Flow Rate (L/min) 1 Oxygen Delivery Method Room Air Weight: 93.7 kg Body Mass Index (BMI) 29.9 Intake & Output: Intake and Output for Last 24 Hours 03/15/21 03/16/21 03/17/21 23:59 23:59 23:59 Intake Total 824.5 / 1044.5 1420 / 1540 570 / 570 Output Total 1675 / 1825 725 / 725 775 / 775 Balance -850.5 / -780.5 695 / 815 -205 / -205 Lab / Micro Data Result Diagrams: 03/17/21 06:30 03/17/21 06:30 Labs: Laboratory Results - last 24 hr 03/17/21 06:30: WBC 6.6, RBC 2.98 L, Hgb 8.2 L, Hct 26.0 L, MCV 87.2, MCH 27.5, MCHC 31.5 L, RDW Std Deviation 54.8 H, RDW Coeff of Issac 17.5 H, Plt Count 243, MPV 9.8, Neut % (Auto) Not Reportable, Absolute Neuts (auto) 3.3, Absolute Lymphs (auto) 1.79, Total Counted 100, Neutrophils % (Manual) 49, Band Ne utrophils % 1, Lymphocytes % (Manual) 27, Monocytes % (Manual) 14 H, Eosinophils % (Manual) 3, Myelocytes % 6 H, Diff Path Review May foll, Atypical Lymphocytes 2+, Platelet Estimate ADEQUATE, RBC Morphology NORM C+C, Anisocytosis 1+ 03/17/21 06:30: Sodium 144, Potassium 3.5, Chloride 116 H, Carbon Dioxide 22.0, Anion Gap 6, BUN 26 H, Creatinine 2.66 H, Estim Creat Clear Calc 20.57, Est GFR (MDRD) Af Amer 23 L, Est GFR (MDRD) Non-Af 19 L, BUN/Creatinine Ratio 9.8 L, Glucose 91, Calcium 8.1 L Micro: Microbiology 03/08/21 20:40 Blood Culture (Wb) - Anticubital Right Blood Culture - Final No growth in 5 days. 03/08/21 21:18 Blood Culture (Wb) - Anticubital Right Blood Culture - Final No growth in 5 days. 03/09/21 19:50 Sputum, Induced/Lukens Gram Stain - Final 03/09/21 19:50 Sputum, Induced/Lukens Respiratory Culture - Preliminary Yeast, not Radha albicans 03/08/21 20:00 Urine Catheter - Catheter Urine Culture - Final Culture exhibits no growth. 03/08/21 21:14 Nasal Secretion SARS-CoV-2 Antigen (Rapid) - Final SARS-CoV-2 (COVID 19) Physical Exam Narrative General: NAD HEENT normocephalic, atraumatic. Mucous membrane moist Heart: Normal S1, S2. No rubs or murmurs Abdomen: Normal bowel sound, soft, nontender, no guarding or rebound Extremity: No edema Assessment & Plan Assessment/Plan (1) Acute kidney injury: PLAN: -Baseline creatinine prior to last admit was 1.8. At the time of discharge her creatinine was around 2.2-2.4. -Serum creatinine was slowly increasing at the detention. -Renal ultrasound without any hydronephrosis. -WHITLEY could be due to ATN related to current sepsis, non-oliguric. -Dialysis was initiated on 03/10/2021. -The patient was dialyzed 03/13/2021. -The patient is nonoliguric. cr is better today. hold HD (2) Chronic kidney disease, stage 3b: PLAN: -Baseline serum creatinine was 1.8 mg/dL. (3) Pneumonia due to COVID-19 virus: PLAN: -The patient is on dexamethasone. -Overall management as per hospital medicine service. (4) UTI (urinary tract infection): QUALIFIERS: Urinary tract infection type: acute cystitis Hematuria presence: without hematuria Qualified Code(s): N30.00 - Acute cystitis without hematuria PLAN: -management as per primary ok to remove hd line
--- NOTE | 2021-03-17 12:48 | CASEMGMT ---
Per nephro note, pt creatinine still improving and temp HD line to be removed. Per Dr. Roach, pt can d/c today, if precert obtained. SStjosh DORANTES CM
[2021-03-17 13:25] LABS: MG Sendout 1.8 mg/dL (1.6-2.3)
[2021-03-17 14:01] LABS: Pathologist Review Reviewed
--- NOTE | 2021-03-17 14:15 | PCM.PN.HOSP ---
Subjective Subjective Follow-up for acute ischemic infarct and seizure, WHITLEY on CKD No seizure episode, myoclonus. Patient sleepy in the morning but she wakes up in known. Objective Data Objective Data Vital Signs: Vital Signs Temp Pulse Resp BP Pulse Ox 97.7 F L 62 18 151/89 H 99 03/17/21 08:51 03/17/21 08:51 03/17/21 08:51 03/17/21 08:51 03/17/21 08:51 Oxygen Flow Rate (L/min) 1 Oxygen Delivery Method Room Air Weight: 206 lb 9.17 oz Body Mass Index (BMI) 29.9 Intake & Output: Intake and Output for Last 24 Hours 03/15/21 03/16/21 03/17/21 23:59 23:59 23:59 Intake Total 824.5 / 1044.5 1420 / 1540 570 / 570 Output Total 1675 / 1825 725 / 725 775 / 775 Balance -850.5 / -780.5 695 / 815 -205 / -205 Lab / Micro Data Result Diagrams: 03/17/21 06:30 03/17/21 06:30 Labs: Laboratory Results - last 24 hr 03/16/21 06:51: Magnesium 1.8 03/17/21 06:30: WBC 6.6, RBC 2.98 L, Hgb 8.2 L, Hct 26.0 L, MCV 87.2, MCH 27.5, MCHC 31.5 L, RDW Std Deviation 54.8 H, RDW Coeff of Issac 17.5 H, Plt Count 243, MPV 9.8, Neut % (Auto) Not Reportable, Absolute Neuts (auto) 3.3, Absolute Lymphs (auto) 1.79, Total Counted 100, Neutrophils % (Manual) 49, Band Neutrophils % 1, Lymphocytes % (Manual) 27, Monocytes % (Manual) 14 H, Eosinophils % (Manual) 3, Myelocytes % 6 H, Diff Path Review Reviewed, Atypical Lymphocytes 2+, Platelet Estimate ADEQUATE, RBC Morphology NORM C+C, Anisocytosis 1+ 03/17/21 06:30: Sodium 144, Potassium 3.5, Chloride 116 H, Carbon Dioxide 22.0, Anion Gap 6, BUN 26 H, Creatinine 2.66 H, Estim Creat Clear Calc 20.57, Est GFR (MDRD) Af Amer 23 L, Est GFR (MDRD) Non-Af 19 L, BUN/Creatinine Ratio 9.8 L, Glucose 91, Calcium 8.1 L Micro: Microbiology 03/08/21 20:40 Blood Culture (Wb) - Anticubital Right Blood Culture - Final No growth in 5 days. 03/08/21 21:18 Blood Culture (Wb) - Anticubital Right Blood Culture - Final No growth in 5 days. 03/09/21 19:50 Sputum, Induced/Lukens Gram Stain - Final 03/09/21 19:50 Sputum, Induced/Lukens Respiratory Culture - Preliminary Yeast, not Radha albicans 03/08/21 20:00 Urine Catheter - Catheter Urine Culture - Final Culture exhibits no growth. 03/08/21 21:14 Nasal Secretion SARS-CoV-2 Antigen (Rapid) - Final SARS-CoV-2 (COVID 19) Physical Exam Narrative General: Drowsy lethargic, sleepy but wake up on verbal command and she responds appropriately. HEENT: Atraumatic, PERRLA, EOMI, Normocephalic Oral: No Gingival or Mucosal Lesions/ Ulcerations Neck: Supple, No JVD, Negative Carotid Bruits Lungs: Air entry diminished in bilateral lung bases. No crepitation/rhonchi Cardiovascular: Regular rate, Regular Rhythm, Normal S1, Normal S2, No murmurs Abdomen: Bowel Sounds Present, Soft, Non Tender, Non-Distended : No renal angle tenderness. No suprapubic tenderness. Extremities: No edema, Capillary Refill Less than 3 Seconds Skin: Thick black scales on both lower legs. Musculoskeletal: Weakness of both lower extremities, power 4/5. ROM restricted Neurological: Mild right facial nerve palsy. No marked/discernible dysarthria or dysphagia. Psych/Mental Status: Flat affect Assessment & Plan Assessment/Plan (1) Acute kidney injury: (2) Pneumonia due to COVID-19 virus: (3) UTI (urinary tract infection): QUALIFIERS: Urinary tract infection type: acute cystitis Hematuria presence: without hematuria Qualified Code(s): N30.00 - Acute cystitis without hematuria (4) Sepsis: QUALIFIERS: Sepsis type: sepsis due to unspecified organism Sepsis acute organ dysfunction status: with acute organ dysfunction Severe sepsis acute organ dysfunction type: acute renal failure Acute renal failure type: unspecified Severe sepsis shock status: without septic shock Qualified Code(s): A41.9 - Sepsis, unspecified organism; R65.20 - Severe sepsis without septic shock; N17.9 - Acute kidney failure, unspecified (5) Myoclonus: (6) Status epilepticus: (7) Acute respiratory failure, unspecified whether with hypoxia or hypercapnia: QUALIFIERS: Respiratory failure complication: hypoxia and hypercapnia Qualified Code(s): J96.01 - Acute respiratory failure with hypoxia; J96.02 - Acute respiratory failure with hypercapnia PLAN: 1. WHITLEY on chronic kidney disease stage IIIb: Patient was oliguric. On 03/14 patient had 450 mill urine output charted. WHITLEY most probably due to ATN. Fourdrinier Operator consulted. Renal ultrasound shows nonobstructive right renal parenchymal stones. On hemodialysis started on 03/10/202103/16: Urine output 1600 to 1700 mL yesterday. Good urine output. Dialysis on hold. Discussed with the associate account director. 03/17: WHITLEY resolved. No further need for dialysis therefore right IJ temporary less catheter ordered to discontinue/remove. 2. Acute COVID 19 + on the , quarantine through the unclear when Sx began. Patient on room air on dexamethasone through the Baricitinib and remdesivir not given due to WHITLEY. 3. Sepsis, present on admission. qSOFA score of 2 2/2 UTI, COVID 19 infection. Prelim respiratory culture shows is 3+, not Radha albicans on pip/tazo continue for 7 days (through the ) DC linezolid. Sepsis resolved. 4. UTI resolved recently had a Proteus UTI on Pip/tazo started on first UCx negative here 5. Acute right ischemic cerebellar stroke: Patient had myoclonus that was resolved. May have been toxic metabolic due to the patient's renal failure, medications not being adequately cleared from her system versus status epilepticus No seizure activity noted at this time. on levetiracetam First EEG inconclusive due to artifact from continuous movement. Noted that there is moderate generalized background slowing. Second EEG was negative for seizure. Status epilepticus ruled out. Transfer to [facility] was canceled patient not eager to go there. 03/16: MRI brain shows right ischemic cerebellar stroke. Does not have dysarthria or language deficit. Patient had wrongly high NIH stroke scale due to lethargy and not answering questions from 5-12. NIH stroke scale discontinued. MRA head does not show evidence for occlusion in carotid or vertebral arteries of the neck although motion artifact. Had MRI in complete evaluation due to motion artifact. Limited echo was negative for interatrial shunt. Discussed with [facility] neurologist. MRI brain showed very tiny stroke not very appreciable by neurologist blood cultures negative. Continue aspirin and Eliquis 2.5.. High intensity statin. PT OT and speech evaluation to continue. Modified swallow was done. Advised to continue Keppra until she follows outpatient neurologist. Patient had modified barium swallow which shows moderate oropharyngeal dysphagia and recommended pur?ed texture nectar thick liquid diet. 6. Recent ureteral stone nephrostomy tube placed at [facility] Follow-up with urology as outpatient 7. VTE prophylaxis: change to SQ heparin 8. Paroxysmal A. fib. Currently patient is sinus rhythm. Patient had episode of bradycardia. Cardiology following 9. Acute hypoxic and hypercapnic respiratory failure Intubated primarily for airway protection extubated on March 12. 03/17: Resolved. Patient pulse ox 100% on room air. Pre-CERT is pending. Charges/Coding Visit Charges Inpatient E&M: 82928 Subs Hosp L2
--- NOTE | 2021-03-17 14:47 | DIALYSIS ---
right neck temporary dialysis catheter ordered to be removed per Dr. Doyle, dressing removed, site cleansed, 2 sutures removed, line pulled, stasis achieved without issue, pressure held [id number], patient tolerated procedure well, dressing to remain intact for 24 hours, report to staffing recruiter upon departing patient room
--- NOTE | 2021-03-17 16:18 | CASEMGMT ---
Call to Twyla at [facility] admissions to cancel pt's referral for OP HD, voices understanding. Krista DORANTES CM
--- NOTE | 2021-03-17 16:26 | CASEMGMT ---
SW received a phone call from Keira with patient's insurance. Patient is being denied skilled care at the [facility]. The physician would like to do a peer to peer with [facility] physician. The number to call is , option 5. The deadline is 2-10 10:30a Central Time. Physician will need 3 identifiers: patient's name, date of , and member ID. ANGELES passed along this information to physician. Dotty WISE
[2021-03-17] MEDS: Atorvastatin Calcium 40 MG Tablet PO (22:00)
[2021-03-18 03:14] VITALS: PULSE 66
[2021-03-18 04:24] VITALS: BMI 29.9
[2021-03-18 05:50] VITALS: BP 147/76; PULSE 60; RESP 14; TEMP 36.7; O2SAT 100
[2021-03-18 06:13] LABS: Hematocrit 25.3 % (37-47); Hemoglobin 7.9 g/dL (12.0-15.0); Mean Corp Hgb Conc 31.2 g/dL (32-36); Mean Corpuscular Hgb 27.5 pg (27.0-32.0); Mean Corpuscular Volume 88.2 fL (81-99); Mean Platelet Vol. 10.1 fl (6.2-12.0); POSITIVE COUNT YES; POSITIVE MORPHOLOGY YES; Platelet Count 249 K/mm3 (150-450); RBC Distribution Width CV 17.4 % (11.6-14.6); Red Blood Count 2.87 M/mm3 (4.2-5.4); White Blood Count 7.3 K/mm3 (4.4-11.0)
[2021-03-18 06:15] LABS: Differential Indicated MANUAL DIFF
[2021-03-18 06:30] LABS: Absolute Lymphocyte Count 2.32 X10^3/uL (0.83-4.51); Absolute Neutrophil Count 3.8 X10^3/uL (2.0-7.7); Anisocytosis 1+; Eosinophil 1 % (0-5); Lymphocyte 32 % (19-41); Metamyelocyte 1 % (0-1); Monocyte 10 % (0-10); Myelocyte 3 % (0-0); Neutrophil-Band 2 % (0-5); Neutrophil-Segmented 51 % (47-70); Platelet Estimate ADEQUATE (ADEQ); Red Cell Morphology NORM C+C NORMAL (NORM C&C); Total Cells Counted 100 (MANUAL DIFF)
[2021-03-18 06:40] LABS: Anion Gap 7 (5-15); BUN 23 mg/dL (7-18); Calcium,Total 8.2 mg/dL (8.5-10.1); Chloride 117 mmol/L (98-107); Creatinine, Serum 2.29 mg/dL (0.55-1.02); EST Glomerular Filtration Rate 22 mL/min (>60); Est Glom Filt Rate - Afr Amer 27 mL/min (>60); Estimated Creatinine Clearance 23.89 ml/min; Glucose 83 mg/dL (74-106); Potassium 3.6 mmol/L (3.5-5.1); Sodium Level 144 mmol/L (136-145)
--- NOTE | 2021-03-18 07:44 | TREXTCAR_ITS ---
Diet 03/17/21 17:04 Diet: Regular - General Food consistency:: Pureed Liquid Consistency:: [place]/Mildly Thick Dietary Modifications:: Sodium Restricted Type of Dietary Supplement:: EP or MC w/ meals tid Is pt able to select menu?: Yes Diet Comments: Meds crushed in applesauce, Supervision/Assist at meals Routine Orders/Code Status Suppository Type: Dulcolax 10mg Suppository Frequency: Daily PRN Routine Lab Work: CBC and BMP Code Status: Full Code Wound(s) neck: Wound Type: Surgical Incision Therapies Weight Bearing: Weight bearing as tolerated Extremity Affected:: Bilateral Lower Physical Therapy: Eval and Treat Occupational Therapy: Eval and Treat Speech Therapy: Eval and Treat Problem/Diagnosis (1) Acute kidney injury: Status: Acute (2) Pneumonia due to COVID-19 virus: Status: Acute (3) UTI (urinary tract infection): Status: Acute (4) Sepsis: Status: Acute (5) Myoclonus: Status: Acute (6) Status epilepticus: Status: Acute (7) Acute respiratory failure, unspecified whether with hypoxia or hypercapnia: Status: Acute Allergies/Procedures Done in Hospital Allergies codeine Allergy (Verified 03/08/21 20:39) PT UNABLE TO RESPOND-NEEDS F/U hydrocodone Allergy (Verified 03/08/21 20:39) PT UNABLE TO RESPOND-NEEDS F/U Type of Care/Length of Stay Estimated LOS: Convalescent Care Less Than 30 days Type of Care Needed: Skilled Rehab Potential: Good Prognosis: Good Additional Orders/Day of Discharge Day of Discharge: 03/18/21 Dietary and Speech Recommendations Dietitian Recommendations/Changes: Will liberalize diet to regular / sodium restricted d/t decreased po intake at meals - consistency per COMPUTERIZED TABLE CUTTER Will provide ensure pudding or magic cup w/ meals for increased nutrition if consumed. Discharge Plan Admission Admit Date/Time: 03/08/21 22:49 Primary Reason for Your Visit: Altered mental status, WHITLEY on CKD stage IIIb, COVID-19 pneumonia Attending Provider: Jeramie Roach Primary Care Provider: Brandi Cleary Consulting Providers: Jamal Lowery ; Zia Muir ; Yanna Doyle Discharge Orders/Prescriptions Prescriptions: New atorvastatin 40 mg Tablet 40 mg PO QHS Qty: 0 RF: 0 ammonium lactate 12 % Lotion 1 applic topical BID Qty: 0 RF: 0 lansoprazole 15 mg Capsule,Delayed Release(Dr/Ec) 30 mg PO DAILY Qty: 0 RF: 0 levetiracetam [Keppra] 500 mg tablet 500 mg PO BID Qty: 60 RF: 0 Continued multivitamin Tablet 1 tab PO DAILY RF: 0 polyethylene glycol 3350 17 gram Powder In Packet 17 g PO DAILY RF: 0 ascorbic acid (vitamin C) 500 mg Tablet 500 mg PO DAILY RF: 0 tamsulosin 0.4 mg Capsule 0.4 mg PO QHS RF: 0 zinc 50 mg Tablet 50 mg PO DAILY RF: 0 cholecalciferol (vitamin D3) 125 mcg (5,000 unit) Capsule 125 mcg PO DAILY RF: 0 Linzess 290 mcg Capsule 290 mcg PO DAILY RF: 0 venlafaxine 150 mg Capsule,Extended Release 24hr 150 mg PO DAILY Qty: 0 RF: 0 Held Eliquis 2.5 mg Tablet 2.5 mg PO BID RF: 0 Hold Instructions: Hold for 5 days, recheck H&H in 2 days and resume if hemoglobin is between 9 to 10 g%. Discontinued morphine 30 mg Tablet Extended Release 30 mg PO Q12H RF: 0 cephalexin [Keflex] 500 mg Capsule 500 mg PO BID RF: 0 trazodone 150 mg Tablet 150 mg PO QODAY RF: 0 gabapentin 300 mg Capsule 300 mg PO BID RF: 0 morphine 15 mg Tablet 15 mg PO BID RF: 0 Referrals / Follow Up: Zia Muir MD [STAFF PHYSICIAN] - Within 2 Weeks (acute hypoxic resp failure) Yanna Doyle MD [STAFF PHYSICIAN] - Within 2 Weeks (WHITLEY on CKD [id number]) Brandi Cleary MD [Primary Care Provider] - Saulo Bal MD [STAFF PHYSICIAN] - Within 1 Month (for H/o possible seizure and stroke. outpatient EEG) Disposition Disposition (needs filled in before D/C Order can be placed): Nursing Home Facility
--- NOTE | 2021-03-18 07:45 | DS.PCM_ITS ---
Providers Date of Admission: 03/08/21 Date of Discharge: 03/18/21 Primary Care Physician: Dr. Brandi Cleary MD Consultations 03/09/21 01:11 Consult: Supervisor Pig Machine / Pulmonary Medicine Routine Consulting Provider: Zia Muir Reason for Consult: COVID-19 PNEUMONIA EMERGENT Consult: No Notified: Yes Date Notified: 03/09/21 Time Notified: 06:45 Method of Notification: Text Consult: Nephrology Routine Consulting Provider: Yanna Doyle Reason for Consult: whitley EMERGENT Consult: No Notified: Yes Date Notified: 03/09/21 Time Notified: 03:53 Method of Notification: Answering Service 03/10/21 10:31 Consult: Onc/Wound/director of convention services Routine Comment: Reason for Consult:: scaly and thick coating on legs 03/10/21 14:07 Consult: Cardiology Routine Consulting Provider: Jamal Lowery Reason for Consult: bradycardia, junctional rhythm EMERGENT Consult: No Notified: Yes Date Notified: 03/10/21 Time Notified: 14:18 Method of Notification: Answering Service Reason For Visit: SEPSIS 2NDARY TO UTI Diagnosis Discharge Diagnosis (1) Acute kidney injury: Status: Acute Code(s): N17.9 - Acute kidney failure, unspecified (2) Pneumonia due to COVID-19 virus: Status: Acute Code(s): U07.1 - COVID-19; J12.82 - Pneumonia due to coronavirus disease 2019 (3) UTI (urinary tract infection): Status: Acute Code(s): N39.0 - Urinary tract infection, site not specified Qualifiers: Hematuria presence: without hematuria Urinary tract infection type: acute cystitis Qualified Code(s): N30.00 - Acute cystitis without hematuria (4) Sepsis: Status: Acute Code(s): A41.9 - Sepsis, unspecified organism Qualifiers: Acute renal failure type: unspecified Sepsis acute organ dysfunction status: with acute organ dysfunction Sepsis type: sepsis due to unspecified organism Severe sepsis acute organ dysfunction type: acute renal failure Severe sepsis shock status: without septic shock Qualified Code(s): A41.9 - Sepsis, unspecified organism; R65.20 - Severe sepsis without septic shock; N17.9 - Acute kidney failure, unspecified (5) Myoclonus: Status: Acute Code(s): G25.3 - Myoclonus (6) Status epilepticus: Status: Acute Code(s): G40.901 - Epilepsy, unspecified, not intractable, with status epilepticus (7) Acute respiratory failure, unspecified whether with hypoxia or hypercapnia: Status: Acute Code(s): J96.00 - Acute respiratory failure, unspecified whether with hypoxia or hypercapnia Qualifiers: Respiratory failure complication: hypoxia and hypercapnia Qualified Code(s): J96.01 - Acute respiratory failure with hypoxia; J96.02 - Acute respiratory failure with hypercapnia Medications at Discharge Home Medications Eliquis 2.5 mg PO BID 03/08/21 Linzess 290 mcg PO DAILY 03/08/21 ascorbic acid (vitamin C) 500 mg PO DAILY 03/08/21 cholecalciferol (vitamin D3) 125 mcg PO DAILY 03/08/21 multivitamin 1 tab PO DAILY 03/08/21 polyethylene glycol 3350 17 g PO DAILY 03/08/21 tamsulosin 0.4 mg PO QHS 03/08/21 zinc 50 mg PO DAILY 03/08/21 ammonium lactate 1 applic TOPICAL BID #0 g 03/18/21 atorvastatin 40 mg PO QHS #0 tab 03/18/21 lansoprazole 30 mg PO DAILY #0 cap 03/18/21 levetiracetam [Keppra] 500 mg PO BID #60 tab 03/18/21 venlafaxine 150 mg PO DAILY #0 cap 03/18/21 Hospital Course Summary of Care Provided Hospital Course: This 70-year-old female with history of partial nephrectomy, previous alcoholism and on morphine was admitted with confusion, 6 days of malaise and encephalopathy. Patient was also recently diagnosed on March 06 with UTI and COVID-19 when she went to [facility] on March 06. Further hospital course and management as follows 1. WHITLEY on chronic kidney disease stage IIIb: Patient was oliguric. On 03/14 patient had 450 mill urine output charted. WHITLEY most probably due to ATN. Spreader Operator consulted. Renal ultrasound shows nonobstructive right renal parenchymal stones. On hemodialysis started on 03/10/2021 last dialysis was on 03/13. Patient did not require dialysis after that. Urine output 1000 mL to 1600 mL daily. Right IJ temporary dialysis catheter was removed on 03/17. No hematoma. 2. Acute COVID 19 + on the , quarantine through the unclear when Sx began. Patient on room air. Patient completed dexamethasone. Baricitinib and remdesivir not given due to WHITLEY. 3. Sepsis, present on admission most likely due to UTI but possible bilateral basilar pneumonia.. qSOFA score of 2 2/2 UTI, COVID 19 infection. Prelim respiratory culture shows is 3+, not Radha albicans on pip/tazo continue for 7 days (through the ) DC linezolid. Sepsis resolved. 4. UTI resolved recently had a Proteus UTI on Pip/tazo started on first UCx negative here 5. Acute right ischemic cerebellar stroke: Patient had myoclonus that was resolved. May have been toxic metabolic due to the patient's renal failure, medications not being adequately cleared from her system versus status epilepticus No seizure activity noted at this time. on levetiracetam First EEG inconclusive due to artifact from continuous movement. Noted that there is moderate generalized background slowing. Second EEG was negative for seizure. Status epilepticus ruled out. Transfer to [facility] was canceled patient not eager to go there. 03/16: MRI brain shows right ischemic cerebellar stroke. Does not have dysarthria or language deficit. Patient had wrongly high NIH stroke scale due to lethargy and not answering questions from 5-12. NIH stroke scale discontinued. MRA head does not show evidence for occlusion in carotid or vertebral arteries of the neck although motion artifact. Had MRI in complete evaluation due to motion artifact. Limited echo was negative for interatrial shunt. Discussed with [facility] neurologist. MRI brain showed very tiny stroke not very appreciable by neurologist blood cultures negative. Continue aspirin and Eliquis 2.5.. High intensity statin. PT OT and speech evaluation to continue. Modified swallow was done. Advised to continue Keppra until she follows outpatient neurologist. Patient had modified barium swallow which shows moderate oropharyngeal dysphagia and recommended pur?ed texture nectar thick liquid diet. 6. Recent ureteral stone nephrostomy tube placed at [facility] Follow-up with urology as outpatient 7. VTE prophylaxis: On Eliquis 2.5 mg twice daily on hold 8. Paroxysmal A. fib. Currently patient is sinus rhythm. Patient had episode of bradycardia. Cardiology following Acute on chronic anemia most likely due to multiple chronic disease: Hemoglobin last 7.9 g%. Patient baseline hemoglobin between 8 to 9 g%. Hold Eliquis for 5 days and if hemoglobin is more than 8 g, can resume 2.5 twice daily. Patient cannot tolerate to anticoagulant therefore baby aspirin discontinued. If patient cannot have Eliquis, can take baby aspirin in place of that although not 100% replacement 9. Acute hypoxic and hypercapnic respiratory failure Intubated primarily for airway protection extubated on March 12. 03/17: Resolved. Patient pulse ox 100% on room air. 03/18: Patient not on oxygen. [id number] conversation with denial for SNF was done on 03/18 at 10:10 AM. I talked to the insurance Doctor And was on phone for almost half an hour. Input was given by social work administrator and physical therapist. She approved SNF. Discharge medication reconciliation done. Discharge follow-up instructions completed. Discharge process discussed with the patient and all questions were answered to patient's satisfaction. Her home medication of morphine extended release instant release, trazodone and gabapentin discontinued. Patient on Keppra. Venlafaxine to hold if patient is drowsy or lethargic. Patient hemoglobin is low therefore hold apixaban. If patient cannot tolerate apixaban, can try low-dose aspirin 81 mg daily. Total time spent, exact 35 minutes on discharge meds reconciliation, examination, coordination of care with nurses and ancillary staff, review of imaging and blood test and discussion with the patient on follow-up instructions Physical Exam Narrative General: Awake, responding questions appropriately. Oriented x3. Intermittent drowsiness HEENT: Atraumatic, PERRLA, EOMI, Normocephalic Oral: No Gingival or Mucosal Lesions/ Ulcerations Neck: Supple, No JVD, Negative Carotid Bruits Lungs: Air entry diminished in bilateral lung bases. No crepitation/rhonchi Cardiovascular: Sinus rhythm with PVC, Normal S1, Normal S2, No murmurs Abdomen: Bowel Sounds Present, Soft, Non Tender, Non-Distended : No renal angle tenderness. No suprapubic tenderness. Urine output 1000- 1500 mL daily there is dark Extremities: No edema, Capillary Refill Less than 3 Seconds Skin: Thick black scales on both lower legs. Improving Musculoskeletal: Weakness of both lower extremities, power 4/5. ROM restricted Neurological: Mild right facial nerve palsy. No marked/discernible dysarthria or dysphagia. Psych/Mental Status: Flat affect Weight / BMI Weight Weight: 202 lb 13.204 oz Body Mass Index (BMI) 29.9 ABG / Lab / Microbiology Data Result Diagrams: 03/18/21 05:35 03/18/21 05:35 Laboratory: Laboratory Results - last 24 hr 03/16/21 06:51: Magnesium 1.8 03/17/21 06:30: Diff Path Review Reviewed 03/18/21 05:35: WBC 7.3, RBC 2.87 L, Hgb 7.9 L, Hct 25.3 L, MCV 88.2, MCH 27.5, MCHC 31.2 L, RDW Std Deviation 55.0 H, RDW Coeff of Issac 17.4 H, Plt Count 249, MPV 10.1, Neut % (Auto) Not Reportable, Absolute Neuts (auto) 3.8, Absolute Lymphs (auto) 2.32, Total Counted 100, Neutrophils % (Manual) 51, Band Neutrophils % 2, Lymphocytes % (Manual) 32, Monocytes % (Manual) 10, Eosinophils % (Manual) 1, Metamyelocytes % 1, Myelocytes % 3 H, Diff Path Review May foll, Platelet Estimate ADEQUATE, RBC Morphology NORM C+C, Anisocytosis 1+ 03/18/21 05:35: Sodium 144, Potassium 3.6, Chloride 117 H, Carbon Dioxide 20.0 L , Anion Gap 7, BUN 23 H, Creatinine 2.29 H, Estim Creat Clear Calc 23.89, Est GFR (MDRD) Af Amer 27 L, Est GFR (MDRD) Non-Af 22 L, BUN/Creatinine Ratio 10.0, Glucose 83, Calcium 8.2 L Microbiology: Microbiology 03/08/21 20:40 Blood Culture (Wb) - Anticubital Right Blood Culture - Final No growth in 5 days. 03/08/21 21:18 Blood Culture (Wb) - Anticubital Right Blood Culture - Final No growth in 5 days. 03/09/21 19:50 Sputum, Induced/Lukens Gram Stain - Final 03/09/21 19:50 Sputum, Induced/Lukens Respiratory Culture - Preliminary Yeast, not Radha albicans 03/08/21 20:00 Urine Catheter - Catheter Urine Culture - Final Culture exhibits no growth. 03/08/21 21:14 Nasal Secretion SARS-CoV-2 Antigen (Rapid) - Final SARS-CoV-2 (COVID 19) Meaningful Use Info Meaningful Use Diagnoses (Choose all that apply): None applicable and Ischemic CVA CVA Therapy Assessed for PT,OT and/or ST?: Yes Ischemic Stroke Antithrombotic order at d/c?: Yes Dx of Atrial fib/flutter?: Yes Anticoagulant at discharge?: Yes Statins at discharge?: Yes Primary Dx Acute Ischemic CVA?: Yes IV tPA ordered during stay?: No Reason IV t-PA not ordered: Procedure not Indicated Discharge Plan Admission Admit Date/Time: 03/08/21 22:49 Primary Reason for Your Visit: Altered mental status, WHITLEY on CKD stage IIIb, COVID-19 pneumonia Attending Provider: Jeramie Roach Primary Care Provider: Brandi Cleary Consulting Providers: Jamal Lowery ; Zia Muir ; Yanna Doyle Discharge Orders/Prescriptions Prescriptions: New atorvastatin 40 mg Tablet 40 mg PO QHS Qty: 0 RF: 0 ammonium lactate 12 % Lotion 1 applic topical BID Qty: 0 RF: 0 lansoprazole 15 mg Capsule,Delayed Release(Dr/Ec) 30 mg PO DAILY Qty: 0 RF: 0 levetiracetam [Keppra] 500 mg tablet 500 mg PO BID Qty: 60 RF: 0 Continued multivitamin Tablet 1 tab PO DAILY RF: 0 polyethylene glycol 3350 17 gram Powder In Packet 17 g PO DAILY RF: 0 ascorbic acid (vitamin C) 500 mg Tablet 500 mg PO DAILY RF: 0 tamsulosin 0.4 mg Capsule 0.4 mg PO QHS RF: 0 zinc 50 mg Tablet 50 mg PO DAILY RF: 0 cholecalciferol (vitamin D3) 125 mcg (5,000 unit) Capsule 125 mcg PO DAILY RF: 0 Linzess 290 mcg Capsule 290 mcg PO DAILY RF: 0 venlafaxine 150 mg Capsule,Extended Release 24hr 150 mg PO DAILY Qty: 0 RF: 0 Held Eliquis 2.5 mg Tablet 2.5 mg PO BID RF: 0 Hold Instructions: Hold for 5 days, recheck H&H in 2 days and resume if hemoglobin is between 9 to 10 g%. Discontinued morphine 30 mg Tablet Extended Release 30 mg PO Q12H RF: 0 cephalexin [Keflex] 500 mg Capsule 500 mg PO BID RF: 0 trazodone 150 mg Tablet 150 mg PO QODAY RF: 0 gabapentin 300 mg Capsule 300 mg PO BID RF: 0 morphine 15 mg Tablet 15 mg PO BID RF: 0 Referrals / Follow Up: Zia Muir MD [STAFF PHYSICIAN] - Within 2 Weeks (acute hypoxic resp failure) Yanna Doyle MD [STAFF PHYSICIAN] - Within 2 Weeks (WHITLEY on CKD sucbo5w) Brandi Cleary MD [Primary Care Provider] - Saulo Bal MD [STAFF PHYSICIAN] - Within 1 Month (for H/o possible seizure and stroke. outpatient EEG) Disposition Disposition (needs filled in before D/C Order can be placed): Half-Way Facility Charges/Coding Visit Charges Inpatient E&M: 72789 Disch Hosp
[2021-03-18 08:01] VITALS: PULSE 47
[2021-03-18 09:11] VITALS: PULSE 55
[2021-03-18 10:39] VITALS: BP 155/71; PULSE 59; RESP 16; TEMP 36.9; O2SAT 100
[2021-03-18] MEDS: Lansoprazole 15 MG Capsule.DR 30 MG PO (10:49)
[2021-03-18] MEDS: dexAMETHasone 10 MG/ML Vial 6 MG IV (10:49)
[2021-03-18] MEDS: Aspirin 81 MG TAB.CHEW PO (10:49)
[2021-03-18] MEDS: Ammonium Lactate 225 gm Bottle 1 APPLIC TOPICAL (10:49)
--- NOTE | 2021-03-18 11:06 | CASEMGMT ---
Addendum entered by Dotty Ann 03/18/21 11:31: Received call from Laurie with [facility] and they did get approval for patient. ANGELES will fax orders and be in touch with a supervisor opening and picking time. Dotty WISE Original Note: Physician was completing a peer to peer with insurance. learning and development assistant helped answer some PT questions. Patient was approved. ANGELES called Laurie at [facility] and let her know patient was approved. She said they will have to hear from their insurance people first, but to go ahead and plan for d/c today. Laurie will let SW know when she gets the okay. Plan: [facility] pending insurance communicating approval with SNF. Dotty WISE
[2021-03-18 11:59] LABS: Color, Urine Red (Yellow); Glucose, Dipstick Normal (Normal); Ketone-Dipstick Negative (Negative); Leukocyte Esterase-Dipstick 500 /ul (Negative); Nitrite-Dipstick Negative (Negative); Occult Blood-Urine 250 /ul (Negative); Protein-Dipstick 100 mg/dl (Negative); Urine Bilirubin Dipstick Negative (Negative); Urine Clarity Cloudy (Clear); Urine Urobilinogen Normal (Normal)
--- NOTE | 2021-03-18 12:43 | CASEMGMT ---
JOSE E FLOR NOTE: Pt lives in [place] and to discharge to SNF today. Pt meets criteria for Palliative care referral. SW, Dotty, aware and states will notify SNF. Dean VARMA RN CM
--- NOTE | 2021-03-18 13:03 | PN.RENAL_ITS ---
Subjective Subjective no new events Objective Data Objective Data Vital Signs: Vital Signs Temp Pulse Resp BP Pulse Ox 98.4 F 59 L 16 155/71 H 100 03/18/21 10:39 03/18/21 10:39 03/18/21 10:39 03/18/21 10:39 03/18/21 10:39 Oxygen Flow Rate (L/min) 1 Oxygen Delivery Method Room Air Weight: 92 kg Body Mass Index (BMI) 29.9 Intake & Output: Intake and Output for Last 24 Hours 03/16/21 03/17/21 03/18/21 23:59 23:59 23:59 Intake Total 1420 / 1540 1210.25 / 1230.25 359 / 359 Output Total 725 / 725 1025 / 1025 800 / 800 Balance 695 / 815 185.25 / 205.25 -441 / -441 Lab / Micro Data Result Diagrams: 03/18/21 05:35 03/18/21 05:35 Labs: Laboratory Results - last 24 hr 03/16/21 06:51: Magnesium 1.8 03/17/21 06:30: Diff Path Review Reviewed 03/18/21 05:35: WBC 7.3, RBC 2.87 L, Hgb 7.9 L, Hct 25.3 L, MCV 88.2, MCH 27.5, MCHC 31.2 L, RDW Std Deviation 55.0 H, RDW Coeff of Issac 17.4 H, Plt Count 249, MPV 10.1, Neut % (Auto) Not Reportable, Absolute Neuts (auto) 3.8, Absolute Lymphs (auto) 2.32, Total Counted 100, Neutrophils % (Manual) 51, Band Neutrophils % 2, Lymphocytes % (Manual) 32, Monocytes % (Manual) 10, Eosinophils % (Manual) 1, Metamyelocytes % 1, Myelocytes % 3 H, Diff Path Review May foll, Platelet Estimate ADEQUATE, RBC Morphology NORM C+C, Anisocytosis 1+ 03/18/21 05:35: Sodium 144, Potassium 3.6, Chloride 117 H, Carbon Dioxide 20.0 L , Anion Gap 7, BUN 23 H, Creatinine 2.29 H, Estim Creat Clear Calc 23.89, Est GFR (MDRD) Af Amer 27 L, Est GFR (MDRD) Non-Af 22 L, BUN/Creatinine Ratio 10.0, Glucose 83, Calcium 8.2 L 03/18/21 10:38: Urine Color Red, Urine Clarity Cloudy, Urine pH 7.0, Ur Specific [place] 1.010, Urine Protein 100 H, Urine Glucose (UA) Normal, Urine Ketones Negative, Urine Occult Blood 250 H, Urine Nitrite Negative, Urine Bilirubin Negative, Urine Urobilinogen Normal, Ur Leukocyte Esterase 500 H Micro: Microbiology 03/08/21 20:40 Blood Culture (Wb) - Anticubital Right Blood Culture - Final No growth in 5 days. 03/08/21 21:18 Blood Culture (Wb) - Anticubital Right Blood Culture - Final No growth in 5 days. 03/09/21 19:50 Sputum, Induced/Lukens Gram Stain - Final 03/09/21 19:50 Sputum, Induced/Lukens Respiratory Culture - Preliminary Yeast, not Radha albicans 03/08/21 20:00 Urine Catheter - Catheter Urine Culture - Final Culture exhibits no growth. 03/08/21 21:14 Nasal Secretion SARS-CoV-2 Antigen (Rapid) - Final SARS-CoV-2 (COVID 19) Physical Exam Narrative no obvious distress no pallor no icterus no JVD s1s2 no murmurs lungs clear abdomen soft no organomegaly no edema no cyanosis Assessment & Plan Assessment/Plan (1) Acute kidney injury: PLAN: -Baseline creatinine prior to last admit was 1.8. At the time of discharge her creatinine was around 2.2-2.4. -Serum creatinine was slowly increasing at the custodial. -Renal ultrasound without any hydronephrosis. -WHITLEY could be due to ATN related to current sepsis, non-oliguric. -Dialysis was initiated on 03/10/2021. -The patient was dialyzed 03/13/2021. -cr better, off HD. line out (2) Chronic kidney disease, stage 3b: PLAN: -Baseline serum creatinine was 1.8 mg/dL. (3) Pneumonia due to COVID-19 virus: PLAN: -The patient is on dexamethasone. -Overall management as per hospital medicine service. (4) UTI (urinary tract infection): QUALIFIERS: Urinary tract infection type: acute cystitis Hematuria presence: without hematuria Qualified Code(s): N30.00 - Acute cystitis without hematuria
--- NOTE | 2021-03-18 15:09 | CASEMGMT ---
SW arranged for patient to get picked up at 3p. SW faxed orders and warehouse order picker time to [facility]. ANGELES notified RN, loan secretary, and [facility]. ANGELES also called patient' sister Keila and let her know. Plan: d/c back to [facility] under skilled level of care. [facility] transported via cot. Dotty Ann TRAVELING CONSTRUCTION SUPERINTENDENT CLOTH STOCK SORTER
[2021-03-18 15:24] LABS: Pathologist Review Reviewed
== END 2021-03-18 15:13 | disposition skilled nursing facility (03) | DRG 871 ==
LOC: ED 22:56 → MS3 22:58 → PCU 03-09 16:02 → ICU 03-09 21:35 → PCU 03-13 09:06
PROVIDERS: Internal Medicine Critical Care Medicine; Internal Medicine Nephrology; Nurse Practitioner Adult Health; Admitting Provider Hospitalist; Emergency Provider Emergency Medicine; PCP Internal Medicine; Visit Provider Internal Medicine
DX: A41.9 Sepsis, unspecified organism (principal); U07.1 COVID-19; N17.0 Acute kidney failure with tubular necrosis; I63.9 Cerebral infarction, unspecified; J96.01 Acute respiratory failure with hypoxia; J12.82 Pneumonia due to coronavirus disease 2019; J96.02 Acute respiratory failure with hypercapnia; J15.9 Unspecified bacterial pneumonia; G93.49 Other encephalopathy; I47.2 Ventricular tachycardia; E87.0 Hyperosmolality and hypernatremia; N30.00 Acute cystitis without hematuria; N13.6 Pyonephrosis; E86.0 Dehydration; I48.0 Paroxysmal atrial fibrillation; R65.20 Severe sepsis without septic shock; D63.8 Anemia in other chronic diseases classified elsewhere; G25.3 Myoclonus; I87.2 Venous insufficiency (chronic) (peripheral); G62.9 Polyneuropathy, unspecified; E87.8 Other disorders of electrolyte and fluid balance, not elsewhere classified; R00.1 Bradycardia, unspecified; E87.6 Hypokalemia; Z79.899 Other long term (current) drug therapy; E66.9 Obesity, unspecified; Z90.5 Acquired absence of kidney; Z68.31 Body mass index [BMI] 31.0-31.9, adult; Z79.01 Long term (current) use of anticoagulants; Z87.442 Personal history of urinary calculi; N20.0 Calculus of kidney; R13.12 Dysphagia, oropharyngeal phase
CPT/HCPCS: 31500; 31720; 36415; 36569; 36600; 70450; 70544; 70547; 70551; 71045; 71250; 74018; 74230; 76770; 80048; 80053; 80061; 80069; 81001; 81002; 82140; 82550; 82570; 82803; 82962; 83605; 83735; 83880; 84100; 84300; 84443; 84478; 84484; 85025; 85610; 85730; 86706; 87040; 87070; 87077; 87086; 87205; 87340; 87426; 87641; 90937; 92526; 92610; 92611; 93005; 93308; 94002; 94003; 94660; 94762; 95819; 97110; 97162; 97163; 97166; 97530; 97535; 97802; 99251; 99285; J2020; J2997; J7030; J7040; J7050; A4216; C1752; G0257; G0463; J0330; J1940; J3010